=== PATIENT | female | born 1990 | race Caucasian/White ===

== ENCOUNTER 2016-11-21 00:41 | Inpatient (IN) | payer BC, OTHER ==
[2016-11-21] VITALS (12 sets, daily range): BP systolic 100–131; BP diastolic 60–72; PULSE 56–95; RESP 16–18; TEMP 96.1–98.8; O2SAT 95–99
[~2016-11-21] VITALS: Ht 167.6 cm; Wt 87.0 kg
[~2016-11-21 00:41] MED LIST: ACET325S8 PO; ALPR.25 PO; FLUO20SO3 PO; GABA300C3 PO; OXCA150 PO; SERO100T PO; SERO300T PO
[2016-11-21] MEDS ORDERED: SERO300T PO (00:53)
[2016-11-21] MEDS ORDERED: OFFICE MEDICATION (00:53)
[2016-11-21] MEDS ORDERED: SODIUM CHLOR 0.9% 1000 ML INJ 1,000 ML IV SCH (01:40)
[2016-11-21] MEDS ORDERED: ONDANSETRON HCL 4 MG/2 ML VIAL IVP ONE (01:45)
[2016-11-21] MEDS ORDERED: LIDOCAINE VISCOUS 2% SOLN 15 ML UDC PO ONE (01:45)
[2016-11-21] MEDS ORDERED: SODIUM CHLORIDE 0.9% FLUSH 5 ML FLUSH IVF PRN (01:45)
[2016-11-21] MEDS ORDERED: ALUMINUM/MAGNESIUM/SIMETH 30 ML CUP PO ONE (01:45)
[2016-11-21] MEDS ORDERED: PROM25TA5 PO (02:18)
--- NOTE | 2016-11-21 02:19 | PD ---
HPI Chief Complaint: GI Complaint Time Seen by Provider: 01:31 Travel History International Travel<30 days: No Contact w/Intl Traveler<30days: No Traveled to known affect area: No History of Present Illness HPI 26-year-old female arrives complaining of nausea vomiting for the past 2 weeks. For the last 3 days she has been vomiting more or less constantly. She reports normal flatus and normal bowel movements. She has some upper abdominal pain. Decreased oral intake. She has been tolerating water occasionally however vomits after drinking. She has a history of bipolar disorder and has been on Seroquel. 3 para 0 with 3 abortions. She states she smokes marijuana all day every day in hopes that it may help her vomiting. She smokes 2 packs of cigarettes daily. She denies drinking alcohol. Last menstruation was one year prior. She has no thoughts of hurting herself or others. No vaginal bleeding or discharge. No urinary complaint. She reports a history of IV drug abuse most recently 5 months prior. [facility] Past Medical History Anxiety: Yes Depression: Yes Diminished Hearing: No Kidney Stones: Yes Influenza Vaccination: No ?: Unknown LMP: 10/29/2016 : 2 Past Surgical History Genitourinary Surgery: Yes (kidney stones, ) Tonsillectomy: Yes Other Surgery: Yes (2 abortions) Social History Alcohol Use: No Tobacco Use: Yes (1 ppd) Substance Use: No Allergies-Medications (Allergen,Severity, Reaction): Coded Allergies: No Known Allergies (Unverified , 11/21/16) Reported Meds & Prescriptions Reported Meds & Active Scripts Active Reported Office Medication (Miscellaneous Medication) Misc Seroquel (Quetiapine Fumarate) 300 Mg Tab 300 Mg PO BID Review of Systems Except as stated in HPI: all other systems reviewed are Neg General / Constitutional: No: Fever Physical Exam Narrative GENERAL: 26-year-old female well-nourished well-developed distress SKIN: Warm and dry. HEAD: Atraumatic. Normocephalic. EYES: Pupils equal and round. No scleral icterus. No injection or drainage. ENT: No nasal bleeding or discharge. Mucous membranes pink and moist. NECK: Trachea midline. No JVD. CARDIOVASCULAR: Regular rate and rhythm. No murmur appreciated. RESPIRATORY: No accessory muscle use. Clear to auscultation. Breath sounds equal bilaterally. GASTROINTESTINAL: Abdomen soft, non-tender, nondistended. Hepatic and splenic margins not palpable. MUSCULOSKELETAL: No obvious deformities. No clubbing. No cyanosis. No edema. NEUROLOGICAL: Awake and alert. No obvious cranial nerve deficits. Motor grossly within normal limits. Normal speech. PSYCHIATRIC: Appropriate mood and affect; insight and judgment normal. Data Data Last Documented VS Vital Signs Date Time Temp Pulse Resp B/P Pulse Ox O2 Delivery O2 Flow Rate FiO2 11/21/16 05:35 82 16 104/64 96 Room Air 11/21/16 00:42 98.0 Orders Complete Blood Count With Diff (11/21/16 01:40) Comprehensive Metabolic Panel (11/21/16 01:40) Urinalysis - C+S If Indicated (11/21/16 01:40) Iv Access Insert/Monitor (11/21/16 01:40) Ecg Monitoring (11/21/16 01:40) Oximetry (11/21/16 01:40) Ondansetron Inj (Zofran Inj) (11/21/16 01:45) Sodium Chlor 0.9% 1000 Ml Inj (Ns 1000 M (11/21/16 01:40) Sodium Chloride 0.9% Flush (Ns Flush) (11/21/16 01:45) Al-Mag Hy-Si 40-40-4 Mg/Ml Liq (Mag-Al P (11/21/16 01:45) Lidocaine 2% Viscous (Xylocaine 2% Visco (11/21/16 01:45) Ed Urine Pregnancytest Poc (11/21/16 01:40) Urine Culture (11/21/16 01:45) Lipase (11/21/16 03:20) Ct Abd/Pel W Iv Contrast(Rout) (11/21/16 03:20) Alcohol (Ethanol) (11/21/16 03:21) Ceftriaxone Inj (Rocephin Inj) (11/21/16 03:30) Piperacil-Tazo 4.5 Gm Premix (Zosyn 4.5 (11/21/16 03:30) Iohexol 350 Inj (Omnipaque 350 Inj) (11/21/16 03:33) Admit Order (Ed Use Only) (11/21/16 05:45) Consult General Surgery (11/21/16 ) Place In Observation (11/21/16 ) Vital Signs (Adult) Q4H (11/21/16 05:42) Activity Oob Ad Sonja (11/21/16 05:42) Timber Repairer / Telemetry .CONTINUOUS (11/21/16 05:42) Diet Npo (11/21/16 Breakfast) Sodium Chloride 0.9% Flush (Ns Flush) (11/21/16 05:45) Sodium Chloride 0.9% Flush (Ns Flush) (11/21/16 09:00) Ondansetron Inj (Zofran Inj) (11/21/16 05:45) Basic Metabolic Panel (Bmp) (11/22/16 06:00) Complete Blood Count With Diff (11/22/16 06:00) Enoxaparin Inj (Lovenox Inj) (11/21/16 09:00) Naloxone Inj (Narcan Inj) (11/21/16 05:45) Labs Laboratory Tests Test 11/21/16 01:45 White Blood Count 6.9 TH/MM3 Red Blood Count 3.88 MIL/MM3 Hemoglobin 11.8 GM/DL Hematocrit 33.8 % Mean Corpuscular Volume 87.1 FL Mean Corpuscular Hemoglobin 30.3 PG Mean Corpuscular Hemoglobin 34.8 % Concent Red Cell Distribution Width 14.6 % Platelet Count 289 TH/MM3 Mean Platelet Volume 9.0 FL Neutrophils (%) (Auto) 40.0 % Lymphocytes (%) (Auto) 48.1 % Monocytes (%) (Auto) 10.5 % Eosinophils (%) (Auto) 0.3 % Basophils (%) (Auto) 1.1 % Neutrophils # (Auto) 2.8 TH/MM3 Lymphocytes # (Auto) 3.3 TH/MM3 Monocytes # (Auto) 0.7 TH/MM3 Eosinophils # (Auto) 0.0 TH/MM3 Basophils # (Auto) 0.1 TH/MM3 CBC Comment DIFF FINAL Differential Comment Urine Color DARK-BROWN Urine Turbidity CLOUDY Urine pH 6.0 Urine Specific [place] 1.023 Urine Protein 30 mg/dL Urine Glucose (UA) NEG mg/dL Urine Ketones NEG mg/dL Urine Occult Blood MOD Urine Nitrite NEG Urine Bilirubin MOD Urine Urobilinogen 8.0 MG/DL Urine Leukocyte Esterase NEG Urine RBC 7 /hpf Urine WBC 15 /hpf Urine WBC Clumps OCC Urine Squamous Epithelial 29 /hpf Cells Urine Bacteria RARE /hpf Urine Hyaline Casts 10 /lpf Urine Mucus MANY /lpf Microscopic Urinalysis Comment CULTURE INDICATED Sodium Level 136 MEQ/L Potassium Level 3.4 MEQ/L Chloride Level 99 MEQ/L Carbon Dioxide Level 29.3 MEQ/L Anion Gap 8 MEQ/L Blood Urea Nitrogen 6 MG/DL Creatinine 0.98 MG/DL Estimat Glomerular Filtration 68 ML/MIN Rate Random Glucose 80 MG/DL Calcium Level 8.8 MG/DL Total Bilirubin 2.1 MG/DL Aspartate Amino Transf 618 U/L (AST/SGOT) Alanine Aminotransferase 638 U/L (ALT/SGPT) Alkaline Phosphatase 174 U/L Total Protein 8.3 GM/DL Albumin 3.5 GM/DL Lipase 159 U/L Ethyl Alcohol Level LESS THAN 3 MG/DL MDM Medical Decision Making Medical Screen Exam Complete: Yes Emergency Medical Condition: Yes Medical Record Reviewed: Yes Differential Diagnosis Constipation, Gastritis, Acute Cholecystitis, Biliary Colic, Pancreatitis, [place] , Hepatitis, Bowel Obstruction, Cystitis, Mesenteric Ischemia, AAA, Appendicitis , Renal Stone/Hydronephrosis, GERD, perforated viscous Narrative Course CBC & BMP Diagram 11/21/16 01:45 Bilirubin 2.1 AST 618 ALT [address] shows pericholecystic fluid without obvious cholecystitis otherwise. Case discussed with general surgery and consult is pending. Patient's on maintenance fluids and Zosyn. Her pain is controlled. There is minimal tenderness in the right upper quadrant. She also has a UTI. Admitted to the [facility] service, d/w Dr Gutierrez. Skin warm and dry with a blood pressure of about 110/ 70 and a heart rate of about 90 at time of admission, approximately 6:00 AM. Diagnosis Primary Impression: Nausea & vomiting Qualified Code: R11.2 - Non-intractable vomiting with nausea, unspecified vomiting type Additional Impressions: Marijuana smoker, continuous Elevated LFTs Abdominal pain Qualified Code: R10.11 - Right upper quadrant abdominal pain Cystitis Alexey Silva MD Nov 21, 2016 02:19 Alexey Silva MD Nov 21, 2016 02:19
[2016-11-21 02:32] LABS: AUTOMATED NEUTROPHIL # 2.8 TH/MM3 (1.8-7.7); BASOPHIL # 0.1 TH/MM3 (0-0.2); BASOPHIL % 1.1 % (0.0-2.0); EOSINOPHIL % 0.3 % (0.0-4.0); HEMATOCRIT 33.8 % (35.0-46.0); HEMO FLAGS DIFF FINAL; LYMPH % 48.1 % (9.0-44.0); LYMPHOCYTE # 3.3 TH/MM3 (1.0-4.8); MEAN CELL VOLUME 87.1 FL (80.0-100.0); MEAN CORPUSCULAR HEMOGLOBIN 30.3 PG (27.0-34.0); MEAN CORPUSCULAR HGB CONC 34.8 % (32.0-36.0); MONO % 10.5 % (0.0-8.0); PLATELET COUNT 289 TH/MM3 (150-450); RED BLOOD COUNT 3.88 MIL/MM3 (4.00-5.30); RED CELL DISTRIBUTION WIDTH 14.6 % (11.6-17.2); WHITE BLOOD COUNT 6.9 TH/MM3 (4.0-11.0)
[2016-11-21 02:41] LABS: BACTERIA, URINE RARE /hpf; BLOOD, URINE MOD (NEG); COMMENT (UR) CULTURE INDICATED; CULTURE IF INDICATED CULTURE INDICATED; GLUCOSE,URINE NEG (NEG); HYALINE CAST, URINE 10 /lpf (RARE); KETONE, URINE NEG (NEG); MUCUS URINE MANY /lpf (OCC); NITRITE,URINE NEG (NEG); SQUAMOUS EPITHELIAL CELL URINE 29 /hpf (0-5)
[2016-11-21 02:42] LABS: URINE COLOR DARK-BROWN (YELLW/STRAW)
[2016-11-21 03:18] LABS: ALT (GPT) 638 U/L (10-53); ANION GAP 8 MEQ/L (5-15); AST (GOT) 618 U/L (15-37); BICARBONATE 29.3 MEQ/L (21.0-32.0); BLOOD UREA NITROGEN 6 MG/DL (7-18); CHLORIDE 99 MEQ/L (98-107); GLOMERULAR FILTRATION RATE 68 ML/MIN (>89); POTASSIUM 3.4 MEQ/L (3.5-5.1); SODIUM (NA) 136 MEQ/L (136-145)
[2016-11-21] MEDS ORDERED: BACT800T5 PO (03:18)
[2016-11-21 03:20] LABS: ALKALINE PHOSPHATASE 174 U/L (45-117); TOTAL BILIRUBIN ADULT 2.1 MG/DL (0.2-1.0)
[2016-11-21] MEDS ORDERED: PIPERACIL-TAZO 4.5 GM PREMIX 100 ML IV ONE (03:30)
[2016-11-21] MEDS ORDERED: cefTRIAXone INJ 1,000 MG in SODIUM CHLORIDE 0.9% INJ 100 ML IV ONE (03:30)
[2016-11-21] MEDS ORDERED: IOHEXOL 350 MG/ML 10 ML VIAL (for RAD DIAG) IV ONE (03:33)
--- NOTE | 2016-11-21 04:15 | RADRPT ---
EXAM DATE/TIME: 11/21/2016 03:33 [facility] COMPARISON: No previous studies available for comparison. INDICATIONS : Upper abdominal pain, nausea and vomiting X 3 days. IV CONTRAST: 97 cc Omnipaque 350 (iohexol) IV ORAL CONTRAST: No oral contrast ingested. RADIATION DOSE: 11.21 CTDIvol (mGy) MEDICAL HISTORY : Renal calculi SURGICAL HISTORY : Tonsillectomy. ENCOUNTER: Initial ACUITY: 3 days PAIN SCALE: 5/10 LOCATION: upper abdomen TECHNIQUE: Volumetric scanning of the abdomen and pelvis was performed. Using automated exposure control and ad justment of the mA and/or kV according to patient size, radiation dose was kept as low as reasonably achievable to obtain optimal diagnostic quality images. FINDINGS: Examination of the lung bases demonstrates no abnormality. No pleural fluid is identified. No pulmona ry nodules are present. The liver and spleen are normal in size and no focal defects are identified. There is a trace amount of pericholecystic fluid. If there is concern for cholecystitis nuclear medic ine evaluation is recommended. The pancreas demonstrates no evidence of mass and there is no dilatati on of the pancreatic duct. The adrenal glands and kidneys appear normal bilaterally. No hydronephrosi s or mass lesions are identified. Examination of the pelvis demonstrates no evidence of free fluid or pelvic mass. No abnormally enlarg ed inguinal or retroperitoneal lymph nodes are present. The bladder is unremarkable. CONCLUSION: 1. Trace amount of pericholecystic fluid. If there is concern for cholecystitis radionuclide imaging is recommended Matt Stack MD on November 21, 2016 at 4:10 Board Certified Radiologist. This report was verified electronically.
[2016-11-21] MEDS ORDERED: NALOXONE HCL 0.4 MG/ML AMP IV PRN ×2 (05:45→17:45)
[2016-11-21] MEDS ORDERED: ENOXAPARIN SODIUM 40 MG/0.4 ML SYRINGE SQ SCH (09:00)
[2016-11-21] MEDS: PIPERACIL-TAZO 4.5 GM PREMIX 100 ML IV SCH ×2 (09:41→18:13)
[2016-11-21] MEDS: SODIUM CHLORIDE 0.9% FLUSH 5 ML FLUSH FLUSH SCH ×2 (10:23→21:00)
[2016-11-21] MEDS: ONDANSETRON HCL 4 MG/2 ML VIAL IVP PRN (11:23)
--- NOTE | 2016-11-21 12:05 | MB ---
cc: MABEL ROBLES MD DATE OF CONSULTATION: 11/21/2016 REASON FOR CONSULTATION: Right upper quadrant pain, nausea, vomiting. HISTORY OF PRESENT DISEASE: This pleasant 26 year-old female presents to the hospital with about a week or two of nausea and vomiting. The patient apparently has been taking p.o., however, vomits after drinking. The patient has normal bowel movements. The patient is admitted to the hospital. The question arises about the nature of her symptoms. The initial CT scan reveals some fluid around the gallbladder but that is about it. PAST MEDICAL HISTORY: Bipolar disorder. The patient is on Seroquel. PAST SURGICAL HISTORY: Three abortions. SOCIAL HISTORY: The patient does not drink. Smoked about a pack a day of cigarettes and smokes pot all day, every day. MEDICATIONS: Seroquel. REVIEW OF SYSTEMS: Normal at this point. The patient has no other issues. PHYSICAL EXAMINATION: Reveals a 26 year-old female in no acute distress. HEENT: Normocephalic. No trauma to the head. Pupils equally reactive. Extraocular muscles intact. Neck: Supple bilateral carotid pulses. No bruits. Sclerae are nonicteric. Chest: Bilateral breath sounds. Heart: Regular rhythm. Abdomen: Soft. Hypoactive bowel sounds to palpation, tender in the upper quadrant but no rebound, no guarding is noted. No masses are noted. Extremities: Within normal limits. Back: Normal. IMPRESSION Patient with right upper quadrant pain, nausea and vomiting all indicative and reminiscent of cholecystitis. In addition patient's elevated liver function tests including AST and ALT as well as bilirubin which, of course, could be related to cholecystitis but it is unlikely to be this far up. The patient is on Seroquel and maybe on some other medications. The question arises what else could have elevated her liver function tests. Therefore, the patient will be admitted, worked up, undergo HIDA scan and we will see which way this goes. If the patient has acute cholecystitis she will need laparoscopic cholecystectomy, nonetheless, the fact that the AST and ALT are elevated as they may indicate some intrinsic liver problem which will have to be elucidated. If patient undergoes laparoscopic cholecystectomy will go ahead and perform a liver biopsy of the same time. Thank you very much for the referral. Mabel BROWN /11:08 AM /11:56 AM MTDFabián
--- NOTE | 2016-11-21 12:19 | HHI.HP ---
[facility] Service [place] [facility] Primary Care Physician No Primary Care Physician Admission Diagnosis Elevated LFTs, Cystitis, Poss Cholecystitis Diagnoses: Chief Complaint: nausea/vomiting, abdominal pain Travel History International Travel<30 Days: No Contact w/Intl Traveler <30 Da: No Traveled to Known Affected Are: No History of Present Illness 26-year-old female without significant PMH who came to the ED complaining of nausea, vomiting for the past 2 weeks. For the last 3 days she has been vomiting more constantly and getting worse. She reports normal flatus and normal bowel movements. She also has some upper abdominal pain. Decreased oral intake over the past 3 days. She has been tolerating water occasionally however vomits after drinking or eating anything. She has a history of bipolar disorder and has been on Seroquel. 3 para 0 with 3 abortions. She states she smokes marijuana all day every day in hopes that it may help her vomiting. She smokes 2 packs of cigarettes daily. Former heroin user quit 5 month ago. She denies drinking alcohol. Last menstruation was one year prior. She has no thoughts of hurting herself or others. No vaginal bleeding or discharge. No urinary complaint. She reports a history of IV drug abuse most recently 5 months prior. Review of Systems 12 system ROS reviewed negative except as stated in HPI Past Family Social History Past Medical History H/o kidney stones with lithotripsy in the past Past Surgical History Lithotripsy Tonsillectomy Left arm surgery Allergies: Coded Allergies: No Known Allergies (Unverified , 11/21/16) Family History Mother MAC Father HTN, HLD, throat cancer was a smoker Half sister with breast CA at 35 ya Social History Tobacco use: 2 PPD x 8years, MJ almost daily. 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 Occasional EtOH use. Physical Exam Vital Signs Vital Signs Date Time Temp Pulse Resp B/P Pulse Ox O2 Delivery O2 Flow Rate FiO2 11/21/16 08:00 98.8 66 17 105/72 98 Room Air 11/21/16 06:30 67 16 113/69 95 Room Air 11/21/16 05:35 82 16 104/64 96 Room Air 11/21/16 04:13 72 18 131/62 95 11/21/16 03:00 70 18 128/68 96 Room Air 11/21/16 01:46 70 16 110/66 97 11/21/16 00:42 98.0 78 18 116/68 97 Physical Exam GENERAL: This is a well-nourished, well-developed patient, in no apparent distress. SKIN: No rashes, ecchymoses or lesions. Cool and dry. HEAD: Atraumatic. Normocephalic. No temporal or scalp tenderness. EYES: Pupils equal round and reactive. Extraocular motions intact. No scleral icterus. No injection or drainage. ENT: Nose without bleeding, purulent drainage or septal hematoma. Throat without erythema, tonsillar hypertrophy or exudate. Uvula midline. Airway patent. NECK: Trachea midline. No JVD or lymphadenopathy. Supple, nontender, no meningeal signs. CARDIOVASCULAR: Regular rate and rhythm without murmurs, gallops, or rubs. RESPIRATORY: Clear to auscultation. Breath sounds equal bilaterally. No wheezes , rales, or rhonchi. GASTROINTESTINAL: Abdomen soft, non-tender, nondistended. No hepato-splenomegaly , or palpable masses. No guarding. MUSCULOSKELETAL: Extremities without clubbing, cyanosis, or edema. No joint tenderness, effusion, or edema noted. No calf tenderness. Negative Homans sign bilaterally. NEUROLOGICAL: Awake and alert. Cranial nerves II through XII intact. Motor and sensory grossly within normal limits. Five out of 5 muscle strength in all muscle groups. Normal speech. Laboratory Laboratory Tests Test 11/21/16 01:45 White Blood Count 6.9 Red Blood Count 3.88 Hemoglobin 11.8 Hematocrit 33.8 Mean Corpuscular Volume 87.1 Mean Corpuscular Hemoglobin 30.3 Mean Corpuscular Hemoglobin 34.8 Concent Red Cell Distribution Width 14.6 Platelet Count 289 Mean Platelet Volume 9.0 Neutrophils (%) (Auto) 40.0 Lymphocytes (%) (Auto) 48.1 Monocytes (%) (Auto) 10.5 Eosinophils (%) (Auto) 0.3 Basophils (%) (Auto) 1.1 Neutrophils # (Auto) 2.8 Lymphocytes # (Auto) 3.3 Monocytes # (Auto) 0.7 Eosinophils # (Auto) 0.0 Basophils # (Auto) 0.1 CBC Comment DIFF FINAL Differential Comment Urine Color DARK-BROWN Urine Turbidity CLOUDY Urine pH 6.0 Urine Specific [place] 1.023 Urine Protein 30 Urine Glucose (UA) NEG Urine Ketones NEG Urine Occult Blood MOD Urine Nitrite NEG Urine Bilirubin MOD Urine Urobilinogen 8.0 Urine Leukocyte Esterase NEG Urine RBC 7 Urine WBC 15 Urine WBC Clumps OCC Urine Squamous Epithelial 29 Cells Urine Bacteria RARE Urine Hyaline Casts 10 Urine Mucus MANY Microscopic Urinalysis Comment CULTURE INDICATED Sodium Level 136 Potassium Level 3.4 Chloride Level 99 Carbon Dioxide Level 29.3 Anion Gap 8 Blood Urea Nitrogen 6 Creatinine 0.98 Estimat Glomerular Filtration 68 Rate Random Glucose 80 Calcium Level 8.8 Total Bilirubin 2.1 Aspartate Amino Transf 618 (AST/SGOT) Alanine Aminotransferase 638 (ALT/SGPT) Alkaline Phosphatase 174 Total Protein 8.3 Albumin 3.5 Lipase 159 Ethyl Alcohol Level LESS THAN 3 Date/Time Procedure Status Source Growth 11/21/16 01:45 Urine Culture Received Urine Clean Catch Pending Result Diagram: 11/21/16 0145 11/21/16 0145 Imaging Last Impressions Abdomen/Pelvis CT 11/21/16 0320 Signed Impressions: Service Date/Time: Monday, November 21, 2016 03:33 - CONCLUSION: 1. Trace amount of pericholecystic fluid. If there is concern for cholecystitis radionuclide imaging is recommended Matt Stack MD Assessment and Plan Assessment and Plan Abdominal pain poss cholecystitis Transaminitis. Bilirubin 2.1, AST 618, ALT 634 on admission. Check hepatitis panel. Consult GI as well Monitor UTI CT shows pericholecystic fluid without obvious cholecystitis otherwise. General surgery consult. Consult GI Start maintenance fluids and Zosyn IV. Pain control. PPI NPO DVT ppx lovenox Code Status full code Discussed Condition With patient, nurse Physician Certification 2 Midnight Certification Type: Admission for Inpatient Services Order for Inpatient Services The services are ordered in accordance with Medicare regulations or non- Medicare payer requirements, as applicable. In the case of services not specified as inpatient-only, they are appropriately provided as inpatient services in accordance with the 2-midnight benchmark. Estimated LOS (days): 3 days is the estimated time the patient will need to remain in the hospital, assuming treatment plan goals are met and no additional complications. Post-Hospital Plan: Home Carmen Rivera MD Nov 21, 2016 12:19
[2016-11-21] MEDS ORDERED: NYSTAT/DIPHENHY/LIDO MOUTHWASH (Adult) 120ML SWISH-SWAL PRN (14:15)
--- NOTE | 2016-11-21 15:34 | RADRPT ---
EXAM DATE/TIME: 11/21/2016 13:00 [facility] COMPARISON: No previous studies available for comparison. INDICATIONS : Abdominal pain with nausea and vomiting for two weeks. DOSE: 4.1 mCi Tc99m Mebrofenin IV MEDICAL HISTORY : None SURGICAL HISTORY : Tonsillectomy. ENCOUNTER: Initial ACUITY: 2 weeks PAIN SCALE: 5/10 LOCATION: Right upper quadrant TECHNIQUE: Following the intravenous administration of radiotracer, dynamic sequential images were performed wit h continuous acquisition. FINDINGS: There is a slight decrease in the rate of excretion of the radiopharmaceutical from the liver suggest ing some diminished hepatic function. There is no gallbladder activity identified during the study. H owever, there is no biliary obstruction with activity noted in the common bile duct within the first 20 minutes as well as small bowel activity. CONCLUSION: 1. Absent gallbladder activity characteristic of cystic duct obstruction. This can be correlative wit h cholecystitis. 2. Mildly diminished hepatic function. 3. No biliary ductal obstruction. Michelet Chun MD on November 21, 2016 at 15:27 Board Certified Radiologist. This report was verified electronically.
--- NOTE | 2016-11-21 16:54 | PD.CONS ---
HPI History of Present Illness This is a 26 year old female who came to the ER for evaluation of nausea, vomiting, RUQ pain. She reports that her symptoms began about 2 weeks ago. She has been having frequent nausea, vomiting with nonbloody emesis and intermittent RUQ pain- that she describes as a sharp shooting pain in her RUQ that radiates to her epigastric area and sometimes her back. She does not know if this is related to food intake and reports that she has not been eating much because of the nausea. She has chills and diaphoretic episodes, but denies any fevers. She has had some loose stools intermittently over the past few weeks, but denies any blood in her stool. She reports that she has not had any liver problems recently, but when she was 14, she was hospitalized in a mental hospital and taken off some of her psychiatric medications because her "liver was failing." She reports that she has not had any issues since that time. She occasionally drinks ETOH. She denies any family hx of liver problems. ( Pita Alarcon) [facility] Past Medical History H/o kidney stones with lithotripsy in the past Past Surgical History Lithotripsy Tonsillectomy Left arm surgery (Pita Alarcon) Coded Allergies: No Known Allergies (Unverified , 11/21/16) Medications Allergies Coded Allergies Type Severity Reaction Last Updated Verified No Known Allergies 11/21/16 No Active Scripts Medications Dose Route/Sig Days Date Category Office Medication (Miscellaneous Medication) Misc 11/21/16 Reported Seroquel (Quetiapine Fumarate) 300 Mg Tab 300 Mg PO BID 11/21/16 Reported Family History Father HTN, HLD, throat cancer was a smoker Half sister with breast CA at 35 ya Social History Tobacco use: 2 PPD x 8years Frequent MJ use, almost daily. 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 Occasional EtOH use. (Pita Alarcon) Review of Systems Constitutional: COMPLAINS OF: Diaphoretic episodes, Fatigue, Chills, Change in appetite, DENIES: Fever, Weight loss Respiratory: DENIES: Cough Cardiovascular: DENIES: Chest pain Gastrointestinal: COMPLAINS OF: Abdominal pain, Diarrhea (loose stools), Nausea , Vomiting, DENIES: Black stools, Bloody stools, Constipation, Heartburn Integumentary: DENIES: Abnormal pigmentation Hematologic/lymphatic: DENIES: Bruising Neurologic: DENIES: Headache Psychiatric: DENIES: Confusion (AgnesPita Dominguez LISANDRA) GI Exam Vitals I&O Vital Signs Date Time Temp Pulse Resp B/P Pulse Ox O2 Delivery O2 Flow Rate FiO2 11/21/16 12:15 97.7 67 16 116/69 96 11/21/16 11:50 68 16 102/60 98 11/21/16 08:00 98.8 66 17 105/72 98 Room Air 11/21/16 06:30 67 16 113/69 95 Room Air 11/21/16 05:35 82 16 104/64 96 Room Air 11/21/16 04:13 72 18 131/62 95 11/21/16 03:00 70 18 128/68 96 Room Air 11/21/16 01:46 70 16 110/66 97 11/21/16 00:42 98.0 78 18 116/68 97 I/O 11/20/16 11/20/16 11/20/16 11/21/16 11/21/16 11/21/16 07:00 15:00 23:00 07:00 15:00 23:00 Intake Total 0 ml Output Total 200 ml Balance -200 ml Intake Oral 0 ml Output Urine Total 200 ml Imaging Last Impressions Abdomen/Pelvis CT 11/21/16 0320 Signed Impressions: Service Date/Time: Monday, November 21, 2016 03:33 - CONCLUSION: 1. Trace amount of pericholecystic fluid. If there is concern for cholecystitis radionuclide imaging is recommended Matt Stack MD Hepatobiliary Scan Nuclear Medicine 11/21/16 0000 Signed Impressions: Service Date/Time: Monday, November 21, 2016 13:00 - CONCLUSION: 1. Absent gallbladder activity characteristic of cystic duct obstruction. This can be correlative with cholecystitis. 2. Mildly diminished hepatic function. 3. No biliary ductal obstruction. Michelet Chun MD Laboratory Test 11/21/16 01:45 White Blood Count 6.9 TH/MM3 Red Blood Count 3.88 MIL/MM3 Hemoglobin 11.8 GM/DL Hematocrit 33.8 % Mean Corpuscular Volume 87.1 FL Mean Corpuscular Hemoglobin 30.3 PG Mean Corpuscular Hemoglobin 34.8 % Concent Red Cell Distribution Width 14.6 % Platelet Count 289 TH/MM3 Mean Platelet Volume 9.0 FL Neutrophils (%) (Auto) 40.0 % Lymphocytes (%) (Auto) 48.1 % Monocytes (%) (Auto) 10.5 % Eosinophils (%) (Auto) 0.3 % Basophils (%) (Auto) 1.1 % Neutrophils # (Auto) 2.8 TH/MM3 Lymphocytes # (Auto) 3.3 TH/MM3 Monocytes # (Auto) 0.7 TH/MM3 Eosinophils # (Auto) 0.0 TH/MM3 Basophils # (Auto) 0.1 TH/MM3 CBC Comment DIFF FINAL Differential Comment Urine Color DARK-BROWN Urine Turbidity CLOUDY Urine pH 6.0 Urine Specific [place] 1.023 Urine Protein 30 mg/dL Urine Glucose (UA) NEG mg/dL Urine Ketones NEG mg/dL Urine Occult Blood MOD Urine Nitrite NEG Urine Bilirubin MOD Urine Urobilinogen 8.0 MG/DL Urine Leukocyte Esterase NEG Urine RBC 7 /hpf Urine WBC 15 /hpf Urine WBC Clumps OCC Urine Squamous Epithelial 29 /hpf Cells Urine Bacteria RARE /hpf Urine Hyaline Casts 10 /lpf Urine Mucus MANY /lpf Microscopic Urinalysis Comment CULTURE INDICATED Sodium Level 136 MEQ/L Potassium Level 3.4 MEQ/L Chloride Level 99 MEQ/L Carbon Dioxide Level 29.3 MEQ/L Anion Gap 8 MEQ/L Blood Urea Nitrogen 6 MG/DL Creatinine 0.98 MG/DL Estimat Glomerular Filtration 68 ML/MIN Rate Random Glucose 80 MG/DL Calcium Level 8.8 MG/DL Total Bilirubin 2.1 MG/DL Aspartate Amino Transf 618 U/L (AST/SGOT) Alanine Aminotransferase 638 U/L (ALT/SGPT) Alkaline Phosphatase 174 U/L Total Protein 8.3 GM/DL Albumin 3.5 GM/DL Lipase 159 U/L Ethyl Alcohol Level LESS THAN 3 MG/DL Date/Time Procedure Status Source Growth 11/21/16 01:45 Urine Culture Received Urine Clean Catch Pending Physical Examination HEENT: Normocephalic; atraumatic; no jaundice. CHEST: CTA CARDIAC: RRR ABDOMEN: Soft, nondistended, RUQ tenderness, no hepatosplenomegaly; bowel sounds are present in all four quadrants. EXTREMITIES: No clubbing, cyanosis, or edema. SKIN: Normal; no rash; no jaundice. 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 (Pita Alarcon) Assessment and Plan Plan ASSESSMENT: - N/V, RUQ pain. Abdomen/Pelvis CT (11/21/16)----> 1. Trace amount of pericholecystic fluid. If there is concern for cholecystitis radionuclide imaging is recommended. HIDA (11/21/16)-----> 1. Absent gallbladder activity characteristic of cystic duct obstruction. This can be correlative with cholecystitis. 2. Mildly diminished hepatic function. 3. No biliary ductal obstruction. C/O n/v/ruq pain x 2 weeks, has not been able to eat much because of the nausea and pain. WBC 6.9. LFT. T. Bili 2.1, AST 618 , ALT 638, ALk Phosph 174. Lipase 159. GS following. - Elevated LFTs. No biliary dilatation on CT or HIDA. Does have pericholecystic fluid on CT, absent GB activity, characteristic of cystic duct obstruction. GS following. Reports she had elevated LFTs when she was hospitalized at a psychiatric hospital at age 14 and had to be taken off many of her medications because they were causing her "liver to fail." She has not since had any issues. 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 Denies any hx of known hepatitis. - Acute cholecystitis. NPO. GS following. PLAN: - NPO - PPI - Zosyn - Await hepatitis panel - MAU, ASMA, AMA - Celiac panel - Ceruloplasmin, ALpha Antitrypsin - Ferritin, Iron Saturation - Acetaminophen level - Salicylate level - CBC, CMP in am - GS following - Supportive care - Further recommendations to follow based on results of above - Pt seen and examined by Dr. Yao and myself and this note is written on her behalf (Pita Alarcon) Physician Comments seen, examined agree with above (Brandi Yao MD) Pita Alarcon Nov 21, 2016 16:54 Brandi Yao MD Nov 21, 2016 18:27
[2016-11-21] MEDS ORDERED: ACETAMINOPHEN 325 MG TAB PO PRN (17:45)
[2016-11-21] MEDS ORDERED: IBUPROFEN 600 MG TAB PO PRN (17:45)
[2016-11-21] MEDS ORDERED: SODIUM CHLORIDE 0.9% FLUSH 5 ML FLUSH IV PRN (17:45)
[2016-11-21] MEDS: KETOROLAC TROMETHAMINE 30 MG/ML (IVP) VIAL IVP PRN (18:12)
[2016-11-21] MEDS: SODIUM CHLOR 0.9% 1000 ML INJ 1,000 ML IV SCH (18:18)
[2016-11-21 18:24] LABS: FERRITIN 512 NG/ML (8-252); GAMMA GT 62 U/L (5-55); TRANSFERRIN IRON PROFILE 443 MG/DL (200-360)
[2016-11-21 18:30] LABS: ACETAMINOPHEN LESS THAN 2.0 MCG/ML (10.0-30.0)
--- NOTE | 2016-11-21 19:05 | RADRPT ---
EXAM DATE/TIME: 11/21/2016 17:23 [place] COMPARISON: No previous studies available for comparison. INDICATIONS : Right upper quadrant pain. MEDICAL HISTORY : Renal calculi. Nausea. Vomiting. SURGICAL HISTORY : Tonsillectomy. Left arm surgery. Two surgical abortions. ENCOUNTER: Initial ACUITY: 3 days PAIN SCORE: 8/10 LOCATION: Right upper quadrant MEASUREMENTS: LIVER: 18.1 cm length COMMON DUCT: 5 mm RIGHT KIDNEY: 10.5 x 4.7 x 5.2 cm FINDINGS: LIVER: Normal echotexture without focal lesion or ductal dilatation. COMMON DUCT: No intraluminal mass or stone visualized. GALLBLADDER: Extensive sludge within gallbladder. Trace pericholecystic fluid. PANCREAS: The visualized portions are within normal limits. RIGHT KIDNEY: No evidence of hydronephrosis, stone, or mass. CONCLUSION: 1. Extensive gallbladder sludge with trace pericholecystic fluid. No biliary ductal dilatation. No fr ee fluid around the liver. Michelet Chun MD on November 21, 2016 at 19:02 Board Certified Radiologist. This report was verified electronically.
[2016-11-21] MEDS ORDERED: SODIUM CHLORIDE 0.9% FLUSH 5 ML FLUSH IV SCH (21:00)
[2016-11-22] VITALS (7 sets, daily range): BP systolic 98–118; BP diastolic 56–78; PULSE 54–82; RESP 16–17; TEMP 96–98; O2SAT 97–100
[2016-11-22] MEDS ORDERED: KETOROLAC TROMETHAMINE 30 MG/ML (IVP) VIAL IV PUSH ONE
[2016-11-22] MEDS: PIPERACIL-TAZO 4.5 GM PREMIX 100 ML IV SCH ×5 (00:05→22:54)
[2016-11-22] MEDS: KETOROLAC TROMETHAMINE 30 MG/ML (IVP) VIAL IVP PRN ×3 (05:42→18:44)
[2016-11-22 08:23] LABS: AUTOMATED NEUTROPHIL # 3.8 TH/MM3 (1.8-7.7); BASOPHIL # 0.1 TH/MM3 (0-0.2); BASOPHIL % 1.4 % (0.0-2.0); EOSINOPHIL # 0.1 TH/MM3 (0-0.4); EOSINOPHIL % 0.8 % (0.0-4.0); HEMATOCRIT 31.9 % (35.0-46.0); HEMO FLAGS DIFF FINAL; LYMPH % 39.2 % (9.0-44.0); MEAN CELL VOLUME 87.7 FL (80.0-100.0); MEAN CORPUSCULAR HGB CONC 34.2 % (32.0-36.0); MONO % 8.7 % (0.0-8.0); NEUT % 49.9 % (16.0-70.0); PLATELET COUNT 243 TH/MM3 (150-450); RED BLOOD COUNT 3.63 MIL/MM3 (4.00-5.30); RED CELL DISTRIBUTION WIDTH 14.4 % (11.6-17.2); WHITE BLOOD COUNT 7.7 TH/MM3 (4.0-11.0)
[2016-11-22] MEDS: PANTOPRAZOLE SOD 20 MG DELAYED RELEASE TAB PO SCH (08:26)
[2016-11-22] MEDS: SODIUM CHLORIDE 0.9% FLUSH 5 ML FLUSH FLUSH SCH ×2 (08:26→20:50)
[2016-11-22] MEDS: SODIUM CHLOR 0.9% 1000 ML INJ 1,000 ML IV SCH ×2 (08:26→17:35)
[2016-11-22 09:17] LABS: ALKALINE PHOSPHATASE 157 U/L (45-117); ALT (GPT) 755 U/L (10-53); ANION GAP 12 MEQ/L (5-15); AST (GOT) 737 U/L (15-37); BICARBONATE 24.7 MEQ/L (21.0-32.0); BLOOD UREA NITROGEN 7 MG/DL (7-18); CHLORIDE 101 MEQ/L (98-107); GLOMERULAR FILTRATION RATE 68 ML/MIN (>89); POTASSIUM 3.4 MEQ/L (3.5-5.1); SODIUM (NA) 138 MEQ/L (136-145); TOTAL BILIRUBIN ADULT 2.7 MG/DL (0.2-1.0)
[2016-11-22 10:36] LABS: ANA SCREEN POS (NEG)
--- NOTE | 2016-11-22 11:24 | HHI.PR ---
Subjective Remarks Sen after she returned from HIDA scan./ Patient sya she has pain and she is asking for pain meds. no fevr or chills. VSS. Still with nausea, no vomiting. No diarrhea. Objective Vitals Vital Signs Date Time Temp Pulse Resp B/P Pulse Ox O2 Delivery O2 Flow Rate FiO2 11/22/16 09:41 96.0 56 16 102/62 100 11/22/16 04:00 97.0 82 16 112/59 98 11/22/16 00:00 97.5 56 17 105/67 100 11/21/16 20:00 96.1 61 16 100/63 97 11/21/16 20:00 56 11/21/16 19:12 18 11/21/16 16:00 97.3 66 16 108/60 99 11/21/16 12:15 97.7 67 16 116/69 96 11/21/16 11:50 68 16 102/60 98 I/O 11/21/16 11/21/16 11/21/16 11/22/16 11/22/16 11/22/16 07:00 15:00 23:00 07:00 15:00 23:00 Intake Total 0 ml 0 ml 917 ml Output Total 200 ml 200 ml 200 ml Balance -200 ml -200 ml 717 ml Intake Oral 0 ml 0 ml IV Total 917 ml Output Urine Total 200 ml 200 ml 200 ml # Bowel Movements 1 Result Diagram: 11/22/16 0756 11/22/16 0756 Imaging Last Impressions Abdomen/Pelvis CT 11/21/16 0320 Signed Impressions: Service Date/Time: Monday, November 21, 2016 03:33 - CONCLUSION: 1. Trace amount of pericholecystic fluid. If there is concern for cholecystitis radionuclide imaging is recommended Matt Stack MD Hepatobiliary Scan Nuclear Medicine 11/21/16 0000 Signed Impressions: Service Date/Time: Monday, November 21, 2016 13:00 - CONCLUSION: 1. Absent gallbladder activity characteristic of cystic duct obstruction. This can be correlative with cholecystitis. 2. Mildly diminished hepatic function. 3. No biliary ductal obstruction. Michelet Chun MD Gall Bladder Ultrasound 11/21/16 0000 Signed Impressions: Service Date/Time: Monday, November 21, 2016 17:23 - CONCLUSION: 1. Extensive gallbladder sludge with trace pericholecystic fluid. No biliary ductal dilatation. No free fluid around the liver. Michelet Chun MD Objective Remarks GENERAL: This is a well-nourished, well-developed patient, in no apparent distress. SKIN: No rashes, ecchymoses or lesions. Cool and dry. HEAD: Atraumatic. Normocephalic. No temporal or scalp tenderness. EYES: Pupils equal round and reactive. Extraocular motions intact. No scleral icterus. No injection or drainage. ENT: Nose without bleeding, purulent drainage or septal hematoma. Throat without erythema, tonsillar hypertrophy or exudate. Uvula midline. Airway patent. NECK: Trachea midline. No JVD or lymphadenopathy. Supple, nontender, no meningeal signs. CARDIOVASCULAR: Regular rate and rhythm without murmurs, gallops, or rubs. RESPIRATORY: Clear to auscultation. Breath sounds equal bilaterally. No wheezes , rales, or rhonchi. GASTROINTESTINAL: Abdomen soft, non-tender, nondistended. No hepato-splenomegaly , or palpable masses. No guarding. MUSCULOSKELETAL: Extremities without clubbing, cyanosis, or edema. No joint tenderness, effusion, or edema noted. No calf tenderness. Negative Homans sign bilaterally. NEUROLOGICAL: Awake and alert. Cranial nerves II through XII intact. Motor and sensory grossly within normal limits. Five out of 5 muscle strength in all muscle groups. Normal speech. A/P Assessment and Plan Abdominal pain poss cholecystitis Transaminitis. Bilirubin 2.1, AST 618, ALT 634 on admission. Check hepatitis panel. Consult GI as well Monitor UTI CT shows pericholecystic fluid without obvious cholecystitis otherwise. General surgery consult. Consult GI Start maintenance fluids and Zosyn IV. Pain control. PPI NPO H/o polysubstance use heroin, marijuana use. Tobacco use. Counselled. Patient says last use of heroin was 5 month ago. VSS. Patient complaints of pain will give toradol, add for breakthrough pain. DVT ppx lovenox Code Status full code Discussed Condition With patient, nurse Carmen Rivera MD Nov 22, 2016 11:24
[2016-11-22] MEDS ORDERED: KETOROLAC TROMETHAMINE 60 MG/2 ML (IM) VIAL IM PRN (11:30)
--- NOTE | 2016-11-22 12:03 | PD.CAR.PN ---
CVT Progress Note Subjective/Hospital Course: Patient with classic signs of biliary colic US and HIDA confirmatory GI consult appreciated' For lap choly tomorrow J Objective: Vital Signs Date Time Temp Pulse Resp B/P Pulse Ox O2 Delivery O2 Flow Rate FiO2 11/22/16 09:41 96.0 56 16 102/62 100 11/22/16 04:00 97.0 82 16 112/59 98 11/22/16 00:00 97.5 56 17 105/67 100 11/21/16 20:00 96.1 61 16 100/63 97 11/21/16 20:00 56 11/21/16 19:12 18 11/21/16 16:00 97.3 66 16 108/60 99 11/21/16 12:15 97.7 67 16 116/69 96 Labs: Laboratory Tests Test 11/22/16 07:56 White Blood Count 7.7 TH/MM3 (4.0-11.0) Red Blood Count 3.63 MIL/MM3 (4.00-5.30) Hemoglobin 10.9 GM/DL (11.6-15.3) Hematocrit 31.9 % (35.0-46.0) Mean Corpuscular Volume 87.7 FL (80.0-100.0) Mean Corpuscular Hemoglobin 30.0 PG (27.0-34.0) Mean Corpuscular Hemoglobin 34.2 % Concent (32.0-36.0) Red Cell Distribution Width 14.4 % (11.6-17.2) Platelet Count 243 TH/MM3 (150-450) Mean Platelet Volume 8.4 FL (7.0-11.0) Neutrophils (%) (Auto) 49.9 % (16.0-70.0) Lymphocytes (%) (Auto) 39.2 % (9.0-44.0) Monocytes (%) (Auto) 8.7 % (0.0-8.0) Eosinophils (%) (Auto) 0.8 % (0.0-4.0) Basophils (%) (Auto) 1.4 % (0.0-2.0) Neutrophils # (Auto) 3.8 TH/MM3 (1.8-7.7) Lymphocytes # (Auto) 3.0 TH/MM3 (1.0-4.8) Monocytes # (Auto) 0.7 TH/MM3 (0-0.9) Eosinophils # (Auto) 0.1 TH/MM3 (0-0.4) Basophils # (Auto) 0.1 TH/MM3 (0-0.2) CBC Comment DIFF FINAL Differential Comment Sodium Level 138 MEQ/L (136-145) Potassium Level 3.4 MEQ/L (3.5-5.1) Chloride Level 101 MEQ/L (98-107) Carbon Dioxide Level 24.7 MEQ/L (21.0-32.0) Anion Gap 12 MEQ/L (5-15) Blood Urea Nitrogen 7 MG/DL (7-18) Creatinine 0.98 MG/DL (0.50-1.00) Estimat Glomerular Filtration 68 ML/MIN (>89) Rate Random Glucose 73 MG/DL (74-106) Calcium Level 8.3 MG/DL (8.5-10.1) Total Bilirubin 2.7 MG/DL (0.2-1.0) Aspartate Amino Transf 737 U/L (15-37) (AST/SGOT) Alanine Aminotransferase 755 U/L (10-53) (ALT/SGPT) Alkaline Phosphatase 157 U/L (45-117) Total Protein 7.3 GM/DL (6.4-8.2) Albumin 2.8 GM/DL (3.4-5.0) Result Diagram: 11/22/16 0756 11/22/16 0756 Mabel Lam MD Nov 22, 2016 12:03
[2016-11-22] MEDS: ONDANSETRON HCL 4 MG/2 ML VIAL IVP PRN ×2 (12:35→20:43)
[2016-11-22] MEDS ORDERED: oxyCODONE/ACETAMINOPHEN 5 MG/325 MG TAB PO PRN (14:00)
[2016-11-22] MEDS ORDERED: KETOROLAC TROMETHAMINE 30 MG/ML (IVP) VIAL IVP PRN (14:00)
[2016-11-22] MEDS: ACETAMINOPHEN/HYDROcodone 325 MG/5 MG TAB PO PRN ×2 (15:14→20:41)
--- NOTE | 2016-11-22 15:34 | HHI.GIFU ---
Subjective Remarks Patient is resting in bed, still with RUQ pain, nausea and vomiting, not able to tolerate clears. Plan for cholecystectomy tomorrow Objective Vitals I&O Vital Signs Date Time Temp Pulse Resp B/P Pulse Ox O2 Delivery O2 Flow Rate FiO2 11/22/16 12:00 98.0 63 16 110/78 99 11/22/16 09:41 96.0 56 16 102/62 100 11/22/16 04:00 97.0 82 16 112/59 98 11/22/16 00:00 97.5 56 17 105/67 100 11/21/16 20:00 96.1 61 16 100/63 97 11/21/16 20:00 56 11/21/16 19:12 18 11/21/16 16:00 97.3 66 16 108/60 99 I/O 11/21/16 11/21/16 11/21/16 11/22/16 11/22/16 11/22/16 07:00 15:00 23:00 07:00 15:00 23:00 Intake Total 0 ml 0 ml 917 ml Output Total 200 ml 200 ml 200 ml Balance -200 ml -200 ml 717 ml Intake Oral 0 ml 0 ml IV Total 917 ml Output Urine Total 200 ml 200 ml 200 ml # Bowel Movements 1 Laboratory Laboratory Tests Test 11/21/16 11/21/16 11/22/16 18:22 18:26 07:56 Salicylates Level LESS THAN 1.7 Anti-Nuclear Antibody Screen POS Hepatitis A IgM Antibody NEGATIVE Hepatitis B Surface Antigen NEGATIVE Hepatitis B Core IgM Antibody NEGATIVE Hepatitis C Antibody REACTIVE White Blood Count 7.7 Red Blood Count 3.63 Hemoglobin 10.9 Hematocrit 31.9 Mean Corpuscular Volume 87.7 Mean Corpuscular Hemoglobin 30.0 Mean Corpuscular Hemoglobin 34.2 Concent Red Cell Distribution Width 14.4 Platelet Count 243 Mean Platelet Volume 8.4 Neutrophils (%) (Auto) 49.9 Lymphocytes (%) (Auto) 39.2 Monocytes (%) (Auto) 8.7 Eosinophils (%) (Auto) 0.8 Basophils (%) (Auto) 1.4 Neutrophils # (Auto) 3.8 Lymphocytes # (Auto) 3.0 Monocytes # (Auto) 0.7 Eosinophils # (Auto) 0.1 Basophils # (Auto) 0.1 CBC Comment DIFF FINAL Differential Comment Sodium Level 138 Potassium Level 3.4 Chloride Level 101 Carbon Dioxide Level 24.7 Anion Gap 12 Blood Urea Nitrogen 7 Creatinine 0.98 Estimat Glomerular Filtration 68 Rate Random Glucose 73 Calcium Level 8.3 Total Bilirubin 2.7 Aspartate Amino Transf 737 (AST/SGOT) Alanine Aminotransferase 755 (ALT/SGPT) Alkaline Phosphatase 157 Total Protein 7.3 Albumin 2.8 Date/Time Procedure Status Source Growth 11/21/16 01:45 Urine Culture - Final Complete Urine Clean Catch 50-100,000 CFU/ML MIXED GRAM POSITIVE... Imaging Last Impressions Abdomen/Pelvis CT 11/21/16 0320 Signed Impressions: Service Date/Time: Monday, November 21, 2016 03:33 - CONCLUSION: 1. Trace amount of pericholecystic fluid. If there is concern for cholecystitis radionuclide imaging is recommended Matt Stack MD Hepatobiliary Scan Nuclear Medicine 11/21/16 0000 Signed Impressions: Service Date/Time: Monday, November 21, 2016 13:00 - CONCLUSION: 1. Absent gallbladder activity characteristic of cystic duct obstruction. This can be correlative with cholecystitis. 2. Mildly diminished hepatic function. 3. No biliary ductal obstruction. Michelet Chun MD Gall Bladder Ultrasound 11/21/16 0000 Signed Impressions: Service Date/Time: Monday, November 21, 2016 17:23 - CONCLUSION: 1. Extensive gallbladder sludge with trace pericholecystic fluid. No biliary ductal dilatation. No free fluid around the liver. Michelet Chun MD Physical Exam HEENT: Pupils round and reactive to light; normocephalic; atraumatic; no jaundice. NECK: Neck is supple, no JVD, no lymphadenopathy. CHEST: Chest is clear to auscultation and percussion. CARDIAC: Regular rate and rhythm with no murmur gallop or rubs. ABDOMEN: Soft, nondistended, RUQ pain ; no hepatosplenomegaly; bowel sounds are present in all four quadrants. EXTREMITIES: No clubbing, cyanosis, or edema. SKIN: Normal; no rash; no jaundice. 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 Assessment and Plan Plan ASSESSMENT: - N/V, RUQ pain. Abdomen/Pelvis CT (11/21/16)----> 1. Trace amount of pericholecystic fluid. If there is concern for cholecystitis radionuclide imaging is recommended. HIDA (2/19/17)-----> 1. Absent gallbladder activity characteristic of cystic duct obstruction. This can be correlative with cholecystitis. 2. Mildly diminished hepatic function. 3. No biliary ductal obstruction. S/P US (11/21/16) ---> Extensive gallbladder sludge with trace pericholecystic fluid. No biliary ductal dilatation. No free fluid around the liver, GS following, plan to have cholecystectomy in the am - Elevated LFTs. worsening today, No biliary dilatation on CT or HIDA. Does have pericholecystic fluid on CT, absent GB activity, characteristic of cystic duct obstruction. MAU (+), ASMA P, AMA P, Ceruloplasmin, Alpha antitrypsin deficiency, and celiac panel Pending. Iron saturation 21.6 Fe 512 Toxicology was negative for salicylates, acetaminophen and alcohol - Acute cholecystitis. GS following, cholecystectomy in the am - Hep-C (+)- hx of IVDA, will order Hep-C PCR PLAN: - Diet per GS - Hep- C PCR - PPI - Zosyn - Await ASMA, AMA, Celiac panel, Ceruloplasmin, Alpha Antitrypsin - LFTs in am - GS, cholecystectomy in the am - Supportive care - Further recommendations to follow based on results of above - Pt seen and examined by Dr. Banegas and myself and this note is written on his behalf Marci Belle Nov 22, 2016 15:34
[2016-11-23] VITALS (7 sets, daily range): BP systolic 107–132; BP diastolic 63–78; PULSE 55–86; RESP 16–20; TEMP 96.5–97.6; O2SAT 96–98
[2016-11-23] MEDS: ACETAMINOPHEN/HYDROcodone 325 MG/5 MG TAB PO PRN ×2 (00:39→05:12)
[2016-11-23] MEDS: SODIUM CHLORID 0.9% 500 ML IV SCH ×2 (03:44→20:25)
[2016-11-23] MEDS: LACTATED RINGER'S 1000 ML IV SCH (03:44)
[2016-11-23] MEDS: PIPERACIL-TAZO 4.5 GM PREMIX 100 ML IV SCH ×5 (04:01→20:11)
[2016-11-23] MEDS: SODIUM CHLOR 0.9% 1000 ML INJ 1,000 ML IV SCH ×2 (04:01→16:25)
[2016-11-23] MEDS: ONDANSETRON HCL 4 MG/2 ML VIAL IVP PRN ×2 (05:07→20:30)
[2016-11-23 08:06] LABS: ALKALINE PHOSPHATASE 148 U/L (45-117); ALT (GPT) 690 U/L (10-53); AST (GOT) 539 U/L (15-37); INDIRECT BILIRUBIN 0.6 MG/DL (0.0-0.8)
[2016-11-23] MEDS: PANTOPRAZOLE SOD 20 MG DELAYED RELEASE TAB PO SCH (08:11)
[2016-11-23] MEDS: SODIUM CHLORIDE 0.9% FLUSH 5 ML FLUSH FLUSH SCH ×2 (08:11→20:13)
[2016-11-23] MEDS: KETOROLAC TROMETHAMINE 30 MG/ML (IVP) VIAL IVP PRN (09:14)
[2016-11-23] MEDS ORDERED: BUPIVACAINE/EPINEPHRINE 0.5% PF 30 ML VIAL ONE (10:15)
[2016-11-23] MEDS ORDERED: NEOSTIGMINE 3 MG/3 ML SYR IV ONE (10:59)
[2016-11-23] MEDS ORDERED: PROPOFOL 200 MG/20 ML AMP IV ONE (10:59)
[2016-11-23] MEDS ORDERED: LACTATED RINGER'S 1000 ML INJ 1,000 ML IV ONE (10:59)
[2016-11-23] MEDS ORDERED: DEXAMETHASONE SOD PHOS 4 MG/ML VIAL ONE (12:31)
[2016-11-23] MEDS ORDERED: MIDAZOLAM HCL 2 MG/2 ML VIAL ONE (12:31)
[2016-11-23] MEDS ORDERED: FAMOTIDINE 20 MG/2 ML VIAL ONE (12:31)
[2016-11-23] MEDS ORDERED: ONDANSETRON HCL 4 MG/2 ML VIAL ONE (12:31)
[2016-11-23] MEDS ORDERED: HYDROmorphone HCL PF 2 MG/ML VIAL ONE (12:32)
[2016-11-23] MEDS ORDERED: fentaNYL CITRATE 250 MCG/5 ML AMP ONE (12:37)
[2016-11-23 13:16] LABS: BETA HCG QUANT LESS THAN 1 MIU/ML (0-5)
--- NOTE | 2016-11-23 14:52 | HHI.PR ---
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 Plan for surgery dafne today./ Patient says pain is fairly controlled by meds. Nausea but no vomiting. No fever or chills. Objective Vitals Vital Signs Date Time Temp Pulse Resp B/P Pulse Ox O2 Delivery O2 Flow Rate FiO2 11/23/16 12:00 97.2 61 18 132/68 97 11/23/16 08:00 97.2 55 18 114/63 97 11/23/16 04:00 97.1 73 17 107/64 96 11/23/16 00:00 96.9 59 18 111/72 97 11/22/16 16:00 97.9 55 16 118/66 99 I/O 11/22/16 11/22/16 11/22/16 11/23/16 11/23/16 11/23/16 07:00 15:00 23:00 07:00 15:00 23:00 Intake Total 1397 ml 0 ml 1010 ml 555 ml Output Total 200 ml 800 ml 200 ml Balance 1197 ml -800 ml 1010 ml 355 ml Intake Oral 480 ml 0 ml IV Total 917 ml 1010 ml 555 ml Output Urine Total 200 ml 800 ml 200 ml # Voids 1 2 Result Diagram: 11/22/16 0756 11/22/16 0756 Imaging Last Impressions Abdomen/Pelvis CT 11/21/16 0320 Signed Impressions: Service Date/Time: Monday, November 21, 2016 03:33 - CONCLUSION: 1. Trace amount of pericholecystic fluid. If there is concern for cholecystitis radionuclide imaging is recommended Matt Stack MD Hepatobiliary Scan Nuclear Medicine 11/21/16 0000 Signed Impressions: Service Date/Time: Monday, November 21, 2016 13:00 - CONCLUSION: 1. Absent gallbladder activity characteristic of cystic duct obstruction. This can be correlative with cholecystitis. 2. Mildly diminished hepatic function. 3. No biliary ductal obstruction. Michelet Cuhn MD Gall Bladder Ultrasound 11/21/16 0000 Signed Impressions: Service Date/Time: Monday, November 21, 2016 17:23 - CONCLUSION: 1. Extensive gallbladder sludge with trace pericholecystic fluid. No biliary ductal dilatation. No free fluid around the liver. Michelet Chun MD Objective Remarks GENERAL: This is a well-nourished, well-developed patient, in no apparent distress. SKIN: No rashes, ecchymoses or lesions. Cool and dry. HEAD: Atraumatic. Normocephalic. No temporal or scalp tenderness. EYES: Pupils equal round and reactive. Extraocular motions intact. No scleral icterus. No injection or drainage. ENT: Nose without bleeding, purulent drainage or septal hematoma. Throat without erythema, tonsillar hypertrophy or exudate. Uvula midline. Airway patent. NECK: Trachea midline. No JVD or lymphadenopathy. Supple, nontender, no meningeal signs. CARDIOVASCULAR: Regular rate and rhythm without murmurs, gallops, or rubs. RESPIRATORY: Clear to auscultation. Breath sounds equal bilaterally. No wheezes , rales, or rhonchi. GASTROINTESTINAL: Abdomen soft, non-tender, nondistended. No hepato-splenomegaly , or palpable masses. No guarding. MUSCULOSKELETAL: Extremities without clubbing, cyanosis, or edema. No joint tenderness, effusion, or edema noted. No calf tenderness. Negative Homans sign bilaterally. NEUROLOGICAL: Awake and alert. Cranial nerves II through XII intact. Motor and sensory grossly within normal limits. Five out of 5 muscle strength in all muscle groups. Normal speech. A/P Assessment and Plan Abdominal pain poss cholecystitis. Plan for dafne. Gen surgery following Transaminitis. Hep C. Bilirubin 2.1, AST 618, ALT 634 on admission. Check hepatitis panel. Positive for hep C, to follow up as OP. Consult GI. Monitor UTI CT shows pericholecystic fluid without obvious cholecystitis otherwise. General surgery consult. Consult GI Start maintenance fluids and Zosyn IV. Pain control. PPI NPO H/o polysubstance use heroin, marijuana use. Tobacco use. Counselled. Patient says last use of heroin was 5 month ago. VSS. Patient complaints of pain will give toradol IV , norco po, add toradol for breakthrough pain. DVT ppx lovenox Code Status full code Discussed Condition With patient, nurse NIMESH whrn improved and cleared by consultants poss tomorrow Carmen Rivera MD Nov 23, 2016 14:52
[2016-11-23] MEDS ORDERED: HYDROmorphone HCL PF 1 MG/ML VIAL IV ONE (15:37)
[2016-11-23] MEDS ORDERED: DO NOT ADM ANY ANTICOAGULANT DRUGS XX PRN (15:40)
[2016-11-23] MEDS ORDERED: MORPHINE SULFATE 4 MG/ML INJ ONE (15:43)
[2016-11-23] MEDS ORDERED: HYDROmorphone HCL PF 1 MG/ML VIAL IV PRN (15:45)
[2016-11-23] MEDS ORDERED: *HYDROmorphone PF 1 MG VIAL PERIprocedural Use ONLY ONE ×2 (15:51→16:09)
[2016-11-23] MEDS ORDERED: oxyCODONE/ACETAMINOPHEN 5 MG/325 MG TAB PO PRN (16:00)
[2016-11-23] MEDS: HYDROmorphone HCL PF 1 MG/ML VIAL IV PUSH PRN ×3 (18:11→22:28)
[2016-11-23] MEDS: SODIUM CHLORIDE 0.9% FLUSH 5 ML FLUSH FLUSH PRN (18:12)
[2016-11-24] VITALS (10 sets, daily range): BP systolic 100–122; BP diastolic 57–68; PULSE 68–99; RESP 16–22; TEMP 96.1–98.8; O2SAT 91–100
[2016-11-24] MEDS: HYDROmorphone HCL PF 1 MG/ML VIAL IV PUSH PRN ×11 (00:36→21:47)
[2016-11-24] MEDS: LACTATED RINGER'S 1000 ML IV SCH (03:45)
[2016-11-24 03:56] LABS: IGA SERUM 282 mg/dL (81-463); TISSUE TRANSGLUTAMINASE AB IGG ND U/mL (())
[2016-11-24] MEDS: PIPERACIL-TAZO 4.5 GM PREMIX 100 ML IV SCH ×4 (04:18→21:48)
[2016-11-24] MEDS: SODIUM CHLOR 0.9% 1000 ML INJ 1,000 ML IV SCH ×2 (04:23→17:15)
[2016-11-24 06:08] LABS: HEMATOCRIT 22.8 % (35.0-46.0); MEAN CELL VOLUME 89.4 FL (80.0-100.0); MEAN CORPUSCULAR HEMOGLOBIN 30.3 PG (27.0-34.0); MEAN CORPUSCULAR HGB CONC 33.9 % (32.0-36.0); PLATELET COUNT 238 TH/MM3 (150-450); RED BLOOD COUNT 2.55 MIL/MM3 (4.00-5.30); REVIEW FLAG FINAL
[2016-11-24 06:34] LABS: INDIRECT BILIRUBIN 0.7 MG/DL (0.0-0.8)
--- NOTE | 2016-11-24 06:46 | MP ---
cc: ANGELA ROBLES MD DATE OF SURGERY: 11/23/2016 PREOPERATIVE DIAGNOSIS 1. Acute calculous cholecystitis. 2. Elevated liver function tests. POSTOPERATIVE DIAGNOSIS 1. Acute calculous cholecystitis. 2. Elevated liver function tests. OPERATIVE PROCEDURE 1. Laparoscopic cholecystectomy. 2. Liver biopsy. SURGEON Carole ANESTHESIA General. ESTIMATED BLOOD LOSS 150 cc. DETAILS OF PROCEDURE The patient is prepped and draped in usual fashion. A supraumbilical port is placed under direct vision, a Jesus cannula inserted and then the abdomen insufflated with CO2. The patient is positioned in reverse Trendelenburg. A 0-degree camera is inserted and the abdomen visualized. Subxiphoid and two right upper quadrant ports are now placed and then instruments inserted. The liver appears to be beefy red and swollen. The gallbladder is swollen with a layer of fluid overlying it and sort of waterlogged. The gallbladder is now grasped with alligator clamps and elevated. The cystic duct and cystic artery are very carefully dissect with a [place] dissector, triply clipped with Ligaclips and divided. The gallbladder is taken out of the liver bed with a J-hook and delivered through the supraumbilical incision using an EndoCatch bag. The liver is now attended. I discussed this with the screen cleaner and if the liver appeared somewhat swollen they would like a biopsy. Therefore a segment is removed measuring about 8 mm in diameter from the medial aspect of the right lobe. This one is sent separate. Meticulous hemostasis is obtained. A 7 flat LEAH is laid in the subhepatic space and the area irrigated with saline. The instruments are withdrawn. The incisions are closed with 0 Vicryl and 4-0 Monocryl. The patient tolerated the procedure well. Angela ADAMS/DAVINA /4:10 PM /6:33 AM
[2016-11-24] MEDS: PANTOPRAZOLE SOD 20 MG DELAYED RELEASE TAB PO SCH (07:34)
[2016-11-24] MEDS: SODIUM CHLORIDE 0.9% FLUSH 5 ML FLUSH FLUSH SCH (07:34)
[2016-11-24] MEDS: SODIUM CHLORIDE 0.9% FLUSH 5 ML FLUSH FLUSH PRN ×2 (08:23→10:22)
[2016-11-24] MEDS: SODIUM CHLORIDE FLUSH PRN IVF ×2 (12:22→16:18)
--- NOTE | 2016-11-24 13:43 | HHI.GIFU ---
Subjective Remarks Resting in bed. Feeling better. States her drain from surgery was removed today. Objective Vitals I&O Vital Signs Date Time Temp Pulse Resp B/P Pulse Ox O2 Delivery O2 Flow Rate FiO2 11/24/16 10:52 18 11/24/16 10:43 96 11/24/16 08:00 96.1 76 22 116/62 92 11/24/16 04:54 97.9 92 22 113/68 97 11/24/16 00:17 97.8 68 20 107/58 98 11/23/16 20:49 96 21 11/23/16 20:00 96.5 86 20 114/64 96 11/23/16 17:15 97.6 64 16 118/78 98 11/23/16 17:00 16 11/23/16 16:55 97.6 58 16 133/84 98 Nasal Cannula 2 11/23/16 16:45 59 15 134/83 96 Nasal Cannula 2 11/23/16 16:39 15 11/23/16 16:30 60 15 135/82 95 Nasal Cannula 2 11/23/16 16:21 15 11/23/16 16:15 64 15 138/86 95 Nasal Cannula 2 11/23/16 16:00 68 15 142/87 95 Nasal Cannula 2 11/23/16 15:45 70 15 144/80 98 Nasal Cannula 3 11/23/16 15:35 97.7 88 15 143/72 97 Nasal Cannula 3 I/O 11/23/16 11/23/16 11/23/16 11/24/16 11/24/16 11/24/16 07:00 15:00 23:00 07:00 15:00 23:00 Intake Total 555 ml 2322 ml 711 ml Output Total 200 ml 450 ml 30 ml Balance 355 ml 1872 ml 681 ml Intake Oral 120 ml IV Total 555 ml 902 ml 711 ml Other 1300 ml Output Urine Total 200 ml 200 ml Drainage Total 100 ml 30 ml Estimated Blood Loss 150 ml # Voids 2 2 # Bowel Movements 0 Laboratory Laboratory Tests Test 11/24/16 11/24/16 05:00 05:06 Total Bilirubin 2.0 Direct Bilirubin 1.3 Indirect Bilirubin 0.7 Aspartate Amino Transf 462 (AST/SGOT) Alanine Aminotransferase 663 (ALT/SGPT) Alkaline Phosphatase 144 Total Protein 6.8 Albumin 2.8 White Blood Count 12.0 Red Blood Count 2.55 Hemoglobin 7.7 Hematocrit 22.8 Mean Corpuscular Volume 89.4 Mean Corpuscular Hemoglobin 30.3 Mean Corpuscular Hemoglobin 33.9 Concent Red Cell Distribution Width 15.0 Platelet Count 238 Mean Platelet Volume 9.4 Date/Time Procedure Status Source Growth 11/21/16 01:45 Urine Culture - Final Complete Urine Clean Catch 50-100,000 CFU/ML MIXED GRAM POSITIVE... Imaging Last Impressions Abdomen/Pelvis CT 11/21/16 0320 Signed Impressions: Service Date/Time: Monday, November 21, 2016 03:33 - CONCLUSION: 1. Trace amount of pericholecystic fluid. If there is concern for cholecystitis radionuclide imaging is recommended Matt Stack MD Hepatobiliary Scan Nuclear Medicine 11/21/16 0000 Signed Impressions: Service Date/Time: Monday, November 21, 2016 13:00 - CONCLUSION: 1. Absent gallbladder activity characteristic of cystic duct obstruction. This can be correlative with cholecystitis. 2. Mildly diminished hepatic function. 3. No biliary ductal obstruction. Michelet Chun MD Gall Bladder Ultrasound 11/21/16 0000 Signed Impressions: Service Date/Time: Monday, November 21, 2016 17:23 - CONCLUSION: 1. Extensive gallbladder sludge with trace pericholecystic fluid. No biliary ductal dilatation. No free fluid around the liver. Michelet Chun MD Physical Exam HEENT: Normocephalic; atraumatic; no jaundice. NECK: Neck is supple, no JVD, no lymphadenopathy. CHEST: CTA CARDIAC: Regular rate and rhythm with no murmur gallop or rubs. ABDOMEN: Soft, nondistended, mild diffuse tenderness; no hepatosplenomegaly; bowel sounds are present in all four quadrants. Drsg d/i EXTREMITIES: No clubbing, cyanosis, or edema. SKIN: Normal; no rash; no jaundice. OVER THE ROAD DRIVER: No focal deficits; alert and oriented times three. Assessment and Plan Plan ASSESSMENT: - N/V, RUQ pain. Abdomen/Pelvis CT (11/21/16)----> 1. Trace amount of pericholecystic fluid. If there is concern for cholecystitis radionuclide imaging is recommended. HIDA (11/21/16)-----> 1. Absent gallbladder activity characteristic of cystic duct obstruction. This can be correlative with cholecystitis. 2. Mildly diminished hepatic function. 3. No biliary ductal obstruction. S/P US (11/21/16) ---> Extensive gallbladder sludge with trace pericholecystic fluid. No biliary ductal dilatation. No free fluid around the liver, S/P Cholecystectomy 11/23/16. - Elevated LFTs. worsening today, No biliary dilatation on CT or HIDA. Does have pericholecystic fluid on CT, absent GB activity, characteristic of cystic duct obstruction. MAU (+)- titer pending, ASMA negative, AMA P, Ceruloplasmin, Alpha antitrypsin deficiency 267, and celiac panel pending. Iron saturation 21.6 Fe 512 Toxicology was negative for salicylates, acetaminophen and alcohol. HCV antibodies (+). - Acute cholecystitis. GS following,S/P Lap. Mayuri. - Hep-C (+)- hx of IVDA, Genotype/Viral load pending. PLAN: - Diet per GS - Await Hepatitis C Gentotype and viral load - Await MAU titer, AMA, Ceruloplasmin - Monitor labs - S/P Lap. Cholecystectomy - Supportive care - Further recommendations to follow based on results of above - Pt seen and examined by Dr. Banegas and myself and this note is written on his behalf Pita Alarcon Nov 24, 2016 13:43
[2016-11-24 13:56] LABS: ENDOMYSIAL AB TITER ND (<1:5); TISSUE TRANSGLUTAMINASE AB LESS THAN 1 U/mL (())
--- NOTE | 2016-11-24 16:26 | HHI.PR ---
Subjective Remarks The patient was seen earlier today. Patient is controlled by medications. No nausea, vomiting, diarrhea or constipation. Objective Vitals Vital Signs Date Time Temp Pulse Resp B/P Pulse Ox O2 Delivery O2 Flow Rate FiO2 11/24/16 14:41 18 11/24/16 12:00 98.8 87 16 100/63 92 11/24/16 10:43 96 11/24/16 08:00 96.1 76 22 116/62 92 11/24/16 04:54 97.9 92 22 113/68 97 11/24/16 00:17 97.8 68 20 107/58 98 11/23/16 20:49 96 21 11/23/16 20:00 96.5 86 20 114/64 96 11/23/16 17:15 97.6 64 16 118/78 98 11/23/16 17:00 16 11/23/16 16:55 97.6 58 16 133/84 98 Nasal Cannula 2 11/23/16 16:45 59 15 134/83 96 Nasal Cannula 2 11/23/16 16:39 15 11/23/16 16:30 60 15 135/82 95 Nasal Cannula 2 I/O 11/23/16 11/23/16 11/23/16 11/24/16 11/24/16 11/24/16 07:00 15:00 23:00 07:00 15:00 23:00 Intake Total 555 ml 2322 ml 711 ml 0 ml Output Total 200 ml 450 ml 30 ml Balance 355 ml 1872 ml 681 ml 0 ml Intake Oral 120 ml IV Total 555 ml 902 ml 711 ml 0 ml Other 1300 ml Output Urine Total 200 ml 200 ml Drainage Total 100 ml 30 ml Estimated Blood Loss 150 ml # Voids 2 2 # Bowel Movements 0 Result Diagram: 11/24/16 0506 11/22/16 0756 Imaging Last Impressions Abdomen/Pelvis CT 11/21/16 0320 Signed Impressions: Service Date/Time: Monday, November 21, 2016 03:33 - CONCLUSION: 1. Trace amount of pericholecystic fluid. If there is concern for cholecystitis radionuclide imaging is recommended Matt Stack MD Hepatobiliary Scan Nuclear Medicine 11/21/16 0000 Signed Impressions: Service Date/Time: Monday, November 21, 2016 13:00 - CONCLUSION: 1. Absent gallbladder activity characteristic of cystic duct obstruction. This can be correlative with cholecystitis. 2. Mildly diminished hepatic function. 3. No biliary ductal obstruction. Michelet Chun MD Gall Bladder Ultrasound 11/21/16 0000 Signed Impressions: Service Date/Time: Monday, November 21, 2016 17:23 - CONCLUSION: 1. Extensive gallbladder sludge with trace pericholecystic fluid. No biliary ductal dilatation. No free fluid around the liver. Michelet Chun MD Objective Remarks GENERAL: This is a well-nourished, well-developed patient, in no apparent distress. SKIN: No rashes, ecchymoses or lesions. Cool and dry. HEAD: Atraumatic. Normocephalic. No temporal or scalp tenderness. EYES: Pupils equal round and reactive. Extraocular motions intact. No scleral icterus. No injection or drainage. ENT: Nose without bleeding, purulent drainage or septal hematoma. Throat without erythema, tonsillar hypertrophy or exudate. Uvula midline. Airway patent. NECK: Trachea midline. No JVD or lymphadenopathy. Supple, nontender, no meningeal signs. CARDIOVASCULAR: Regular rate and rhythm without murmurs, gallops, or rubs. RESPIRATORY: Clear to auscultation. Breath sounds equal bilaterally. No wheezes , rales, or rhonchi. GASTROINTESTINAL: Abdomen soft, non-tender, nondistended. No hepato-splenomegaly , or palpable masses. No guarding. MUSCULOSKELETAL: Extremities without clubbing, cyanosis, or edema. No joint tenderness, effusion, or edema noted. No calf tenderness. Negative Homans sign bilaterally. NEUROLOGICAL: Awake and alert. Cranial nerves II through XII intact. Motor and sensory grossly within normal limits. Five out of 5 muscle strength in all muscle groups. Normal speech. A/P Assessment and Plan Abdominal pain poss cholecystitis. Plan for dafne. Gen surgery following Transaminitis. Hep C. Bilirubin 2.1, AST 618, ALT 634 on admission. Check hepatitis panel. Positive for hep C, to follow up as OP. Consult GI. Monitor UTI CT shows pericholecystic fluid without obvious cholecystitis otherwise. General surgery consult. S/P dafne Consult GI Start maintenance fluids and Zosyn IV. Pain control. PPI advance diet per surgeon as tolerated H/o polysubstance use heroin, marijuana use. Tobacco use. Counselled. Patient says last use of heroin was 5 month ago. VSS. Patient complaints of pain will give toradol IV , norco po, add toradol for breakthrough pain. DVT ppx lovenox Code Status full code Discussed Condition With patient, nurse Per Dr Lam can be DC tomorrow if improved and tolerates diet DC poss tomorrow Carmen Rivera MD Nov 24, 2016 16:26
[2016-11-24] MEDS: FERROUS SULFATE 325 MG (65 MG ELEMENTAL IRON) TAB PO SCH (17:33)
[2016-11-24] MEDS: ONDANSETRON HCL 4 MG/2 ML VIAL IVP PRN (18:16)
[2016-11-24 18:30] LABS: AUTOMATED NEUTROPHIL # 4.4 TH/MM3 (1.8-7.7); BASOPHIL % 0.5 % (0.0-2.0); EOSINOPHIL % 0.2 % (0.0-4.0); LYMPH % 30.2 % (9.0-44.0); LYMPHOCYTE # 2.2 TH/MM3 (1.0-4.8); MEAN CELL VOLUME 91.1 FL (80.0-100.0); MEAN CORPUSCULAR HEMOGLOBIN 31.1 PG (27.0-34.0); MEAN CORPUSCULAR HGB CONC 34.2 % (32.0-36.0); MONO % 8.7 % (0.0-8.0); NEUT % 60.4 % (16.0-70.0); PLATELET COUNT 230 TH/MM3 (150-450); RED BLOOD COUNT 2.17 MIL/MM3 (4.00-5.30); RED CELL DISTRIBUTION WIDTH 15.7 % (11.6-17.2); WHITE BLOOD COUNT 7.3 TH/MM3 (4.0-11.0)
[2016-11-24 18:34] LABS: HEMO FLAGS AUTO DIFF; REVIEW FLAG AUTO DIFF
[2016-11-24 18:36] LABS: HEMATOCRIT 19.8 % (35.0-46.0)
[2016-11-24 19:02] LABS: SCAN/DIFF AUTO DIFF CONFIRMED
[2016-11-24] MEDS: SODIUM CHLORIDE FLUSH BID IVF SCH (21:47)
[2016-11-25 00:17] VITALS: BP 103/58; PULSE 78; RESP 18; TEMP 98.6; O2SAT 95
[2016-11-25] MEDS: ONDANSETRON HCL 4 MG/2 ML VIAL IVP PRN ×2 (00:40→01:30)
[2016-11-25] MEDS: HYDROmorphone HCL PF 1 MG/ML VIAL IV PUSH PRN ×4 (00:40→11:30)
[2016-11-25 02:47] VITALS: BP 119/62; PULSE 94; RESP 18; TEMP 100.1; O2SAT 97
[2016-11-25 03:11] VITALS: BP 113/61; PULSE 92; RESP 18; TEMP 98.5; O2SAT 100
[2016-11-25 03:52] LABS: MITOCHONDRIAL ABS LESS THAN 20.0 U (())
[2016-11-25 03:52] LABS: HCV RNA PCR IU/ML LESS THAN 15 IU/mL (()); HCV RNA PCR LOGIU/ML LESS THAN 1.18 (())
[2016-11-25] MEDS: SODIUM CHLOR 0.9% 1000 ML INJ 1,000 ML IV SCH (05:10)
[2016-11-25 06:48] VITALS: BP 121/65; PULSE 82; RESP 18; TEMP 98.7; O2SAT 98
[2016-11-25] MEDS: SODIUM CHLORIDE FLUSH BID IVF SCH (07:43)
[2016-11-25] MEDS: PANTOPRAZOLE SOD 20 MG DELAYED RELEASE TAB PO SCH (07:56)
[2016-11-25 08:00] VITALS: BP 112/64; PULSE 81; RESP 16; TEMP 98.3; O2SAT 93
[2016-11-25] MEDS ORDERED: COLA100C3 PO (09:54)
[2016-11-25] MEDS ORDERED: NORC5TAB PO (09:54)
--- NOTE | 2016-11-25 09:55 | HHI.DS ---
Discharge Summary Admission Date Nov 24, 2016 at 10:19 Discharge Date: Nov 25, 2016 Admitting Diagnosis Elevated LFTs, Cystitis, Poss Cholecystitis (1) Cholecystitis ICD Code: K81.9 Diagnosis: Principal (2) S/P cholecystectomy ICD Code: Z90.49 Diagnosis: Principal (3) Anemia ICD Code: D64.9 Diagnosis: Principal (4) Abdominal pain ICD Code: R10.9 Diagnosis: Principal (5) Nausea & vomiting ICD Code: R11.2 Diagnosis: Principal (6) Elevated LFTs ICD Code: R94.5 Diagnosis: Principal (7) Marijuana smoker, continuous ICD Code: F12.20 Diagnosis: Secondary (8) Hepatitis C ICD Code: B19.20 Diagnosis: Secondary Procedures dafne Brief History - From Admission 26-year-old female without significant PMH who came to the ED complaining of nausea, vomiting for the past 2 weeks. For the last 3 days she has been vomiting more constantly and getting worse. She reports normal flatus and normal bowel movements. She also has some upper abdominal pain. Decreased oral intake over the past 3 days. She has been tolerating water occasionally however vomits after drinking or eating anything. She has a history of bipolar disorder and has been on Seroquel. 3 para 0 with 3 abortions. She states she smokes marijuana all day every day in hopes that it may help her vomiting. She smokes 2 packs of cigarettes daily. Former heroin user quit 5 month ago. She denies drinking alcohol. Last menstruation was one year prior. She has no thoughts of hurting herself or others. No vaginal bleeding or discharge. No urinary complaint. She reports a history of IV drug abuse most recently 5 months prior. CBC/BMP: 11/24/16 1810 11/22/16 0756 Significant Findings Laboratory Tests Test 11/23/16 11/24/16 11/24/16 11/24/16 06:30 05:00 05:06 18:10 Total Bilirubin 2.0 MG/DL 2.0 MG/DL (0.2-1.0) (0.2-1.0) Direct Bilirubin 1.4 MG/DL 1.3 MG/DL (0.0-0.2) (0.0-0.2) Aspartate Amino Transf 539 U/L (15-37) 462 U/L (15-37) (AST/SGOT) Alanine Aminotransferase 690 U/L (10-53) 663 U/L (10-53) (ALT/SGPT) Alkaline Phosphatase 148 U/L 144 U/L (45-117) (45-117) Albumin 2.8 GM/DL 2.8 GM/DL (3.4-5.0) (3.4-5.0) White Blood Count 12.0 TH/MM3 (4.0-11.0) Red Blood Count 2.55 MIL/MM3 2.17 MIL/MM3 (4.00-5.30) (4.00-5.30) Hemoglobin 7.7 GM/DL 6.8 GM/DL (11.6-15.3) (11.6-15.3) Hematocrit 22.8 % 19.8 % (35.0-46.0) (35.0-46.0) Monocytes (%) (Auto) 8.7 % (0.0-8.0) Imaging Last Impressions Abdomen/Pelvis CT 11/21/16 0320 Signed Impressions: Service Date/Time: Monday, November 21, 2016 03:33 - CONCLUSION: 1. Trace amount of pericholecystic fluid. If there is concern for cholecystitis radionuclide imaging is recommended Matt Stack MD Hepatobiliary Scan Nuclear Medicine 11/21/16 0000 Signed Impressions: Service Date/Time: Monday, November 21, 2016 13:00 - CONCLUSION: 1. Absent gallbladder activity characteristic of cystic duct obstruction. This can be correlative with cholecystitis. 2. Mildly diminished hepatic function. 3. No biliary ductal obstruction. Michelet Chun MD Gall Bladder Ultrasound 11/21/16 0000 Signed Impressions: Service Date/Time: Monday, November 21, 2016 17:23 - CONCLUSION: 1. Extensive gallbladder sludge with trace pericholecystic fluid. No biliary ductal dilatation. No free fluid around the liver. Michelet Chun MD PE at Discharge GENERAL: This is a well-nourished, well-developed patient, in no apparent distress. SKIN: No rashes, ecchymoses or lesions. Cool and dry. HEAD: Atraumatic. Normocephalic. No temporal or scalp tenderness. EYES: Pupils equal round and reactive. Extraocular motions intact. No scleral icterus. No injection or drainage. ENT: Nose without bleeding, purulent drainage or septal hematoma. Throat without erythema, tonsillar hypertrophy or exudate. Uvula midline. Airway patent. NECK: Trachea midline. No JVD or lymphadenopathy. Supple, nontender, no meningeal signs. CARDIOVASCULAR: Regular rate and rhythm without murmurs, gallops, or rubs. RESPIRATORY: Clear to auscultation. Breath sounds equal bilaterally. No wheezes , rales, or rhonchi. GASTROINTESTINAL: Abdomen soft, non-tender, nondistended. No hepato-splenomegaly , or palpable masses. No guarding. MUSCULOSKELETAL: Extremities without clubbing, cyanosis, or edema. No joint tenderness, effusion, or edema noted. No calf tenderness. Negative Homans sign bilaterally. NEUROLOGICAL: Awake and alert. Cranial nerves II through XII intact. Motor and sensory grossly within normal limits. Five out of 5 muscle strength in all muscle groups. Normal speech. Pt update on day of discharge Patient feels much better. She received 2 U blood overnight. Repeat Hgb is 9.1. Feels much better. No fever or chills. Tolerates food. Cleared by consultants for DC. Hospital Course Abdominal pain 2/2 holecystitis. s/p dafne. Gen surgery following Transaminitis. Hep C. Bilirubin 2.1, AST 618, ALT 634 on admission. Check hepatitis panel. Positive for hep C, to follow up as OP. Seen by GI. Monitor. To follow up as OP UTI Anemia postsurgical hgb 6.8. received 2 u prbc 11/24. Repeat HGB 9.1. Stable. Will have ferrous sulfate supplement as OP. CT shows pericholecystic fluid without obvious cholecystitis otherwise. General surgery consult. S/P dafne by Dr Lam Consult GI Start maintenance fluids and Zosyn IV. DC abx Pain control. PPI advance diet per surgeon as tolerated H/o polysubstance use heroin, marijuana use. Tobacco use. Counselled. Patient says last use of heroin was 5 month ago. VSS. Patient complaints of pain on received dilaudid , norco po, DVT ppx lovenox Code Status full code Discussed Condition With patient, nurse Improved, cleared by consultants for DC, to follow up as OP with PCP and consultants. Pt Condition on Discharge: Stable Discharge Disposition: Discharge Home Discharge Time: <= 30 minutes Discharge Instructions DIET: Follow Instructions for: As Tolerated, No Restrictions Activities you can perform: Regular-No Restrictions Follow up Referrals: Appointment for Follow Up - 1 Week with Mabel Lam MD Appointment for Follow Up - 3 Weeks with Ingrid Banegas MD Gastroenterology - 2 Weeks PCP Follow-up - 3-5 Days New Medications: Docusate Sodium (Colace) 100 Mg Cap 100 MG PO BID Constipation #60 Ref 0 CAP Ferrous Sulfate (Ferrous Sulfate) 325 Mg Tab 325 MG PO DAILY Nutritional Supplement #30 Ref 0 TAB Oxycodone-Acetaminophen (Percocet) 5-325 mg Tab 1 TAB PO Q6H PRN PAIN #14 Ref 0 TAB Continued Medications: Miscellaneous (Office Medication) Misc Quetiapine (Seroquel) 300 Mg Tab 300 MG PO BID #60 Ref 0 TAB Carmen Rivera MD Nov 25, 2016 09:54
[2016-11-25] MEDS ORDERED: FERR325T PO (09:58)
[2016-11-25] MEDS: PIPERACIL-TAZO 4.5 GM PREMIX 100 ML IV SCH ×2 (10:00→11:29)
[2016-11-25] MEDS ORDERED: PERC5TAB12 PO (10:08)
[2016-11-25] MEDS ORDERED: ACETAMINOPHEN/HYDROcodone 325 MG/10 MG TAB PO ONE (10:15)
[2016-11-25] MEDS ORDERED: oxyCODONE/ACETAMINOPHEN 10 MG/325 MG TAB PO ONE (10:15)
[2016-11-25 10:41] LABS: AUTOMATED NEUTROPHIL # 4.7 TH/MM3 (1.8-7.7); BASOPHIL # 0.1 TH/MM3 (0-0.2); BASOPHIL % 0.7 % (0.0-2.0); EOSINOPHIL % 0.3 % (0.0-4.0); HEMATOCRIT 25.8 % (35.0-46.0); HEMO FLAGS DIFF FINAL; LYMPH % 37.1 % (9.0-44.0); LYMPHOCYTE # 3.3 TH/MM3 (1.0-4.8); MEAN CORPUSCULAR HEMOGLOBIN 30.1 PG (27.0-34.0); MEAN CORPUSCULAR HGB CONC 35.4 % (32.0-36.0); MONO % 9.8 % (0.0-8.0); NEUT % 52.1 % (16.0-70.0); PLATELET COUNT 216 TH/MM3 (150-450); RED BLOOD COUNT 3.04 MIL/MM3 (4.00-5.30); RED CELL DISTRIBUTION WIDTH 16.9 % (11.6-17.2)
[2016-11-25 11:07] LABS: MAGNESIUM 2.2 MG/DL (1.5-2.5); POTASSIUM 3.7 MEQ/L (3.5-5.1)
[2016-11-25] MEDS: FERROUS SULFATE 325 MG (65 MG ELEMENTAL IRON) TAB PO SCH (11:29)
[2016-11-25 12:03] VITALS: BP 107/61; PULSE 77; RESP 18; TEMP 98.1; O2SAT 94
--- NOTE | 2016-11-25 14:17 | PD.CAR.PN ---
CVT Progress Note Subjective/Hospital Course: Patient with classic signs of biliary colic US and HIDA confirmatory GI consult appreciated' For lap choly tomorrow J 11/24/2016 Incision is clean and dry LEAH drain has been removed There was some drainage around the LEAH of old the serosanguineous material but this has stopped now Patient is very thin abdominal wall and hence the drainage Abdomen is soft active bowel sounds and patient is passing gas tolerating diet well Received 1 units of PRBC yesterday and dropping hemoglobin is obviously result of surgery combined with delusional effect and as well the fact the patient has a fairly heavy menstrual period Now hemoglobin is normalized and patient can be discharged from my point Can shower daily and get incisions wet Follow-up with me in about 2 weeks Objective: Vital Signs Date Time Temp Pulse Resp B/P Pulse Ox O2 Delivery O2 Flow Rate FiO2 11/25/16 12:03 98.1 77 18 107/61 94 11/25/16 08:00 98.3 81 16 112/64 93 11/25/16 06:48 98.7 82 18 121/65 98 11/25/16 03:11 98.5 92 18 113/61 100 11/25/16 02:47 100.1 94 18 119/62 97 11/25/16 00:17 98.6 78 18 103/58 95 11/24/16 22:53 97.7 75 18 102/57 100 11/24/16 22:30 97.9 99 18 109/59 92 11/24/16 20:20 97.4 92 18 122/62 95 11/24/16 18:46 18 11/24/16 18:28 91 21 11/24/16 16:00 97.5 75 22 104/59 91 11/24/16 14:41 18 Labs: Laboratory Tests Test 11/25/16 10:20 White Blood Count 9.0 TH/MM3 (4.0-11.0) Red Blood Count 3.04 MIL/MM3 (4.00-5.30) Hemoglobin 9.1 GM/DL (11.6-15.3) Hematocrit 25.8 % (35.0-46.0) Mean Corpuscular Volume 85.0 FL (80.0-100.0) Mean Corpuscular Hemoglobin 30.1 PG (27.0-34.0) Mean Corpuscular Hemoglobin 35.4 % Concent (32.0-36.0) Red Cell Distribution Width 16.9 % (11.6-17.2) Platelet Count 216 TH/MM3 (150-450) Mean Platelet Volume 8.3 FL (7.0-11.0) Neutrophils (%) (Auto) 52.1 % (16.0-70.0) Lymphocytes (%) (Auto) 37.1 % (9.0-44.0) Monocytes (%) (Auto) 9.8 % (0.0-8.0) Eosinophils (%) (Auto) 0.3 % (0.0-4.0) Basophils (%) (Auto) 0.7 % (0.0-2.0) Neutrophils # (Auto) 4.7 TH/MM3 (1.8-7.7) Lymphocytes # (Auto) 3.3 TH/MM3 (1.0-4.8) Monocytes # (Auto) 0.9 TH/MM3 (0-0.9) Eosinophils # (Auto) 0.0 TH/MM3 (0-0.4) Basophils # (Auto) 0.1 TH/MM3 (0-0.2) CBC Comment DIFF FINAL Differential Comment Sodium Level 137 MEQ/L (136-145) Potassium Level 3.7 MEQ/L (3.5-5.1) Chloride Level 101 MEQ/L (98-107) Carbon Dioxide Level 29.0 MEQ/L (21.0-32.0) Anion Gap 7 MEQ/L (5-15) Blood Urea Nitrogen 4 MG/DL (7-18) Creatinine 0.74 MG/DL (0.50-1.00) Estimat Glomerular Filtration 93 ML/MIN (>89) Rate Random Glucose 91 MG/DL (74-106) Calcium Level 8.5 MG/DL (8.5-10.1) Magnesium Level 2.2 MG/DL (1.5-2.5) Result Diagram: 11/25/16 1020 11/25/16 1020 Mabel Lam MD Nov 25, 2016 14:17
[2016-11-25 23:54] LABS: HEPATITIS C RNA GENOTYPE NOT DETECTED (())
== END 2016-11-25 15:25 | disposition home or self-care (01) | DRG 419 ==
LOC: NEPE 00:41 → NEDA 05:49 → INTOOBSV 05:49 → HOCB 12:15 → N07B 11-23 15:52 → N07A 11-23 17:10 → OBSVTOIN 11-24 10:19
PROVIDERS: ADMIT Hospitalist; ATTEND Hospitalist
PROC: 0FB14ZX Excision of Right Lobe Liver, Percutaneous Endoscopic Approach, Diagnostic (ICD-10-PCS; 2016-11-23)
PROC: 0FT44ZZ Resection of Gallbladder, Percutaneous Endoscopic Approach (ICD-10-PCS; principal; 2016-11-23 13:25)
PROC: 30233N1 Transfusion of Nonautologous Red Blood Cells into Peripheral Vein, Percutaneous Approach (ICD-10-PCS; 2016-11-24)
DX: K81.0 Acute cholecystitis (principal); N30.90 Cystitis, unspecified without hematuria; B19.20 Unspecified viral hepatitis C without hepatic coma; D64.9 Anemia, unspecified; F31.9 Bipolar disorder, unspecified; F17.210 Nicotine dependence, cigarettes, uncomplicated; F12.90 Cannabis use, unspecified, uncomplicated
CPT/HCPCS: 36430; 74177; 76705; 76937; 78226; 80048; 80053; 80074; 80076; 80320; 80329; 81001; 82103; 82390; 82728; 82784; 82977; 83516; 83520; 83540; 83550; 83690; 83735; 84702; 84703; 85014; 85018; 85025; 85027; 86038; 86039; 86256; 86850; 86900; 86901; 86920; 87086; 87522; 87902; 88304; 88307; 88312; 88313; 96361; 96365; 96375; A9537; C1765; G0378; G0480; J1100; J1170; J1885; J2250; J2270; J2405; J2543; J2710; J3010; J7030; J7120; P9016; Q9967

== ENCOUNTER 2016-11-28 18:30 | Emergency (ER) | payer BC ==
[~2016-11-28] VITALS: Ht 167.6 cm; Wt 85.0 kg
[~2016-11-28 18:30] MED LIST changes: -ACET325S8 PO; -ALPR.25 PO; +COLA100C3 PO; +FERR325T PO; -FLUO20SO3 PO; -GABA300C3 PO; +OFFICE MEDICATION; -OXCA150 PO; +PERC5TAB12 PO; -SERO100T PO
[2016-11-28 18:33] VITALS: BP 131/76; PULSE 102; RESP 20; TEMP 97.7; O2SAT 97
[2016-11-28 18:47] VITALS: BP 120/63; PULSE 97; RESP 16; O2SAT 100
[2016-11-28] MEDS ORDERED: SODIUM CHLOR 0.9% 1000 ML INJ 1,000 ML IV SCH (18:52)
[2016-11-28] MEDS ORDERED: MORPHINE SULFATE 4 MG/ML INJ IV PUSH ONE (19:00)
[2016-11-28] MEDS ORDERED: SODIUM CHLORIDE 0.9% FLUSH 5 ML FLUSH IVF PRN (19:00)
[2016-11-28] MEDS ORDERED: ONDANSETRON HCL 4 MG/2 ML VIAL IVP ONE (19:00)
--- NOTE | 2016-11-28 19:04 | PD ---
HPI Chief Complaint: Wound/Suture/Staple Re-Check Time Seen by Provider: 18:54 Travel History International Travel<30 days: No Contact w/Intl Traveler<30days: No Traveled to known affect area: No History of Present Illness HPI Patient comes in complaining of right upper quadrant pain as well as pain around site from her LEAH drain was placed and removed from recent cholecystectomy. Patient states pain has been ongoing since being discharged from the hospital. Patient reports taking Percocet as prescribed for the pain with little to no improvement of symptoms. Patient states that there was a large amount of bleeding coming from the site of the LEAH drain I have since slowed down. Patient describes pain as sharp stabbing like in nature and states this feels different than her gallbladder pain. Denies any chest pain, shortness of breath, fevers, loss or change in bladder, or headaches. PFSH Past Medical History Anxiety: Yes Depression: Yes Diminished Hearing: No Kidney Stones: Yes Reproductive: No Influenza Vaccination: No ?: Not LMP: 11/17/16 : 2 Past Surgical History Cholecystectomy: Yes Genitourinary Surgery: Yes (kidney stones, ) Tonsillectomy: Yes Other Surgery: Yes (2 abortions) Social History Alcohol Use: No Tobacco Use: Yes (1/2 ppd) Substance Use: No Allergies-Medications (Allergen,Severity, Reaction): Coded Allergies: No Known Allergies (Unverified , 11/21/16) Reported Meds & Prescriptions Reported Meds & Active Scripts Active Percocet (Oxycodone-Acetaminophen) 5-325 mg Tab 1 Tab PO Q6H PRN Ferrous Sulfate 325 Mg Tab 325 Mg PO DAILY Colace (Docusate Sodium) 100 Mg Cap 100 Mg PO BID Reported Seroquel (Quetiapine Fumarate) 300 Mg Tab 300 Mg PO BID Review of Systems Except as stated in HPI: all other systems reviewed are Neg Physical Exam Narrative GENERAL: Well-developed, overly nourished, in no acute distress, and non-ill appearing. SKIN: Warm and dry. Well-healing abdominal from recent LEAH drain noted lower aspect of the right upper quadrant there is no sign of drainage or infection. HEAD: Atraumatic. Normocephalic. EYES: Pupils equal and round. EOMI. No scleral icterus. No injection or drainage. ENT: No nasal bleeding or discharge. Mucous membranes pink and moist. NECK: Trachea midline. Supple. No nuclear rigidity. CARDIOVASCULAR: Regular rate and rhythm. No murmur appreciated. RESPIRATORY: No accessory muscle use. No respiratory distress. Clear to auscultation. Breath sounds equal bilaterally. GASTROINTESTINAL: Abdomen soft, patient reports tenderness to palpation right upper and right lower quadrant, nondistended. Hepatic and splenic margins not palpable. Normal bowel sounds 4. No pulsatile mass. MUSCULOSKELETAL: No obvious deformities. No clubbing. No cyanosis. No edema. Full range of motion. NEUROLOGICAL: Awake and alert. No obvious cranial nerve deficits. Motor grossly within normal limits. Normal speech. PSYCHIATRIC: Appropriate mood and affect; insight and judgment normal. Data Data Last Documented VS Vital Signs Date Time Temp Pulse Resp B/P Pulse Ox O2 Delivery O2 Flow Rate FiO2 11/28/16 22:05 20 11/28/16 19:59 100 11/28/16 18:48 93 11/28/16 18:47 120/63 Room Air 11/28/16 18:33 97.7 Orders Complete Blood Count With Diff (11/28/16 18:52) Comprehensive Metabolic Panel (11/28/16 18:52) Lipase (11/28/16 18:52) Prothrombin Time / Inr (Pt) (11/28/16 18:52) Act Partial Throm Time (Ptt) (11/28/16 18:52) Urinalysis - C+S If Indicated (11/28/16 18:52) Abdomen, Flat & Upright (11/28/16 ) Ct Abd/Pel W Iv Contrast(Rout) (11/28/16 18:52) Iv Access Insert/Monitor (11/28/16 18:52) Ecg Monitoring (11/28/16 18:52) Oximetry (11/28/16 18:52) Morphine Inj (Morphine Inj) (11/28/16 19:00) Ondansetron Inj (Zofran Inj) (11/28/16 19:00) Sodium Chlor 0.9% 1000 Ml Inj (Ns 1000 M (11/28/16 18:52) Sodium Chloride 0.9% Flush (Ns Flush) (11/28/16 19:00) Iohexol 350 Inj (Omnipaque 350 Inj) (11/28/16 20:49) Labs Laboratory Tests Test 11/28/16 11/28/16 19:35 20:00 White Blood Count 12.6 TH/MM3 Red Blood Count 3.42 MIL/MM3 Hemoglobin 10.3 GM/DL Hematocrit 29.9 % Mean Corpuscular Volume 87.4 FL Mean Corpuscular Hemoglobin 30.0 PG Mean Corpuscular Hemoglobin 34.4 % Concent Red Cell Distribution Width 17.5 % Platelet Count 276 TH/MM3 Mean Platelet Volume 8.8 FL Neutrophils (%) (Auto) % Lymphocytes (%) (Auto) % Monocytes (%) (Auto) % Eosinophils (%) (Auto) % Basophils (%) (Auto) % Neutrophils # (Auto) TH/MM3 Lymphocytes # (Auto) TH/MM3 Monocytes # (Auto) TH/MM3 Eosinophils # (Auto) TH/MM3 Basophils # (Auto) TH/MM3 CBC Comment AUTO DIFF Differential Total Cells 100 Counted Neutrophils % (Manual) 36 % Lymphocytes % 54 % Monocytes % 7 % Eosinophils % 1 % Basophils % 1 % Neutrophils # (Manual) 4.5 TH/MM3 Differential Comment FINAL DIFF MANUAL Blastocytes 1 % Platelet Estimate NORMAL Platelet Morphology Comment NORMAL Prothrombin Time 10.4 SEC Prothromb Time International 0.9 RATIO Ratio Activated Partial 19.9 SEC Thromboplast Time Sodium Level 137 MEQ/L Potassium Level 3.3 MEQ/L Chloride Level 100 MEQ/L Carbon Dioxide Level 27.4 MEQ/L Anion Gap 10 MEQ/L Blood Urea Nitrogen 8 MG/DL Creatinine 0.95 MG/DL Estimat Glomerular Filtration 70 ML/MIN Rate Random Glucose 101 MG/DL Calcium Level 8.8 MG/DL Total Bilirubin 2.0 MG/DL Aspartate Amino Transf 142 U/L (AST/SGOT) Alanine Aminotransferase 270 U/L (ALT/SGPT) Alkaline Phosphatase 368 U/L Total Protein 7.5 GM/DL Albumin 3.0 GM/DL Lipase 93 U/L Urine Color ORANGE Urine Turbidity HAZY Urine pH 7.0 Urine Specific [place] 1.022 Urine Protein 30 mg/dL Urine Glucose (UA) NEG mg/dL Urine Ketones NEG mg/dL Urine Occult Blood MOD Urine Nitrite NEG Urine Bilirubin NEG Urine Urobilinogen 4.0 MG/DL Urine Leukocyte Esterase SMALL Urine RBC 27 /hpf Urine WBC 8 /hpf Urine Squamous Epithelial 23 /hpf Cells Urine Bacteria RARE /hpf Urine Hyaline Casts 9 /lpf Urine Mucus FEW /lpf Urine Yeast (Budding) OCC Microscopic Urinalysis Comment CULT NOT INDICATED MDM Medical Decision Making Medical Screen Exam Complete: Yes Emergency Medical Condition: Yes Differential Diagnosis Abscess, appendicitis, pancreatitis, postop location, other Narrative Course There was no significant history of vomiting or diarrhea and no fever. The patient appeared comfortable, well hydrated and the abdominal exam was mildly tender without guarding or rebound and no focal tenderness to me. Laboratory and radiologic/CT evaluation revealed fluid collection which was discussed with Dr. Kennedy who preformed the surgery. There was no evidence of an acute, surgical abdomen at this time. There was no clinical evidence to support appendicitis, bowel obstruction, pancreatitis, perforation of gastric ulcer, colitis, diverticulitis, bacterial peritonitis, obstruction, volvulus, hernial incarceration or strangulation at this time. There was no evidence to support vascular pathology such as AAA, mesenteric ischemia. There was also no clinical evidence by history, exam or risk factors to suggest atypical presentation of cardiac disease such as ACS, AMI or atypical angina. No evidence to suggest genitourinary etiology as well. Clinical picture was discussed with the patient , as well as plan of care. The patient was instructed to follow up with their surgeon. Abdominal pain warnings were discussed with the patient. The patient is to return if worsens, pain worsens or changes, develop fever, inability to tolerate fluids with or without vomiting, unable to establish follow up or as needed. The patient agrees with plan. Patient in no obvious distress upon re-evaluation. All pertinent laboratory/ Radiology result(s) discussed with patient. Discussed patient with Dr. Lynn, who is in agreement with plan of care and disposition. Any questions/concerns in reference to patient diagnosis/condition discussed and clarified prior to patient's discharge. Reinforced sheer importance of close follow up with patient 's primary physician or primary care clinic. Instructed patient to return to ED immediately, if symptoms return/worsen. Pt showed understanding of above instructions. Further instructions and recommendations were detailed in discharge paperwork. Pt ambulated without difficulty out of ED at discharge. Physician Communication Physician Communication [phone] Lam, states that the fluid noted on the CAT scan today is from patient's liver biopsy and is safe to discharge home follow up with him in the office on Tuesday. Diagnosis Primary Impression: Abdominal pain Qualified Code: R10.11 - Right upper quadrant abdominal pain Additional Impression: S/P cholecystectomy Referrals: Mabel Lam MD Patient Instructions: Abdominal Pain (ED), General Instructions Additional Instructions: Follow-up with Vivek Lam on Tuesday. Take all medication as previously prescribed. Return to the emergency department if symptoms get worse or fevers. Disposition: 01 DISCHARGE HOME Condition: Stable Joshua Miranda Nov 28, 2016 19:04
[2016-11-28 19:59] VITALS: RESP 0; RESP 20; O2SAT 100
[2016-11-28 20:09] LABS: HEMATOCRIT 29.9 % (35.0-46.0); MEAN CELL VOLUME 87.4 FL (80.0-100.0); MEAN CORPUSCULAR HGB CONC 34.4 % (32.0-36.0); PLATELET COUNT 276 TH/MM3 (150-450); RED BLOOD COUNT 3.42 MIL/MM3 (4.00-5.30); RED CELL DISTRIBUTION WIDTH 17.5 % (11.6-17.2); WHITE BLOOD COUNT 12.6 TH/MM3 (4.0-11.0)
[2016-11-28 20:11] LABS: HEMO FLAGS AUTO DIFF
[2016-11-28 20:15] LABS: ANION GAP 10 MEQ/L (5-15); AST (GOT) 142 U/L (15-37); BICARBONATE 27.4 MEQ/L (21.0-32.0); BLOOD UREA NITROGEN 8 MG/DL (7-18); CHLORIDE 100 MEQ/L (98-107); GLOMERULAR FILTRATION RATE 70 ML/MIN (>89); INTERNATIONAL NORMALIZED RATIO 0.9 RATIO; POTASSIUM 3.3 MEQ/L (3.5-5.1); PROTHROMBIN TIME - PATIENT 10.4 SEC (9.8-11.6); SODIUM (NA) 137 MEQ/L (136-145)
[2016-11-28 20:16] LABS: APTT (PATIENT) 19.9 SEC (24.3-30.1)
[2016-11-28 20:19] LABS: ALKALINE PHOSPHATASE 368 U/L (45-117); ALT (GPT) 270 U/L (10-53)
[2016-11-28 20:39] LABS: BASOPHILS 1 % (0-2); BLASTS 1 % (0-0); EOSINOPHILS 1 % (0-4); NEUTROPHIL # MANUAL DIFF 4.5 TH/MM3 (1.8-7.7); PLATELET ESTIMATE SMEAR NORMAL (NORMAL); PLATELET MORPHOLOGY NORMAL (NORMAL); POLYS (SEG NEUTROPHILS) 36 % (16-70); WBC DIFF SAMPLE 100
[2016-11-28 20:40] LABS: SCAN/DIFF FINAL DIFF MANUAL
[2016-11-28] MEDS ORDERED: IOHEXOL 350 MG/ML 10 ML VIAL (for RAD DIAG) IV ONE (20:49)
[2016-11-28 20:52] LABS: BACTERIA, URINE RARE /hpf; BLOOD, URINE MOD (NEG); GLUCOSE,URINE NEG (NEG); HYALINE CAST, URINE 9 /lpf (RARE); KETONE, URINE NEG (NEG); MUCUS URINE FEW /lpf (OCC); NITRITE,URINE NEG (NEG); SQUAMOUS EPITHELIAL CELL URINE 23 /hpf (0-5)
[2016-11-28 20:54] LABS: URINE COLOR ORANGE (YELLW/STRAW)
[2016-11-28 20:56] LABS: COMMENT (UR) CULT NOT INDICATED; CULTURE IF INDICATED CULT NOT INDICATED
--- NOTE | 2016-11-28 21:10 | RADRPT ---
EXAM DATE/TIME: 11/28/2016 21:04 [facility] COMPARISON: No previous studies available for comparison. INDICATIONS : Right side abdoment pain Post cholecystectomy 6 days MEDICAL HISTORY : None. SURGICAL HISTORY : Cholecystectomy. ENCOUNTER: Initial ACUITY: 4 - 6 days PAIN SCORE: 5/10 LOCATION: Right upper quadrant Abdomen FINDINGS: Supine and upright views of the abdomen were performed. The abdominal bowel gas pattern is normal. No air fluid levels are seen. No abnormal masses, calcifications, or organomegaly is seen. The visu alized lower lungs are clear. No evidence of free intraperitoneal gas. The osseous structures are u nremarkable. Residual contrast in the collecting system bilaterally. Cholecystectomy clips. CONCLUSION: No acute disease. Contreras Chapin MD on November 28, 2016 at 21:08 Board Certified Radiologist. This report was verified electronically.
--- NOTE | 2016-11-28 21:14 | RADRPT ---
EXAM DATE/TIME: 11/28/2016 20:42 [facility] COMPARISON: No previous studies available for comparison. INDICATIONS : Right sided abdominal pain and bleeding; LEAH drain recently removed. IV CONTRAST: 96 cc Omnipaque 350 (iohexol) IV ORAL CONTRAST: No oral contrast ingested. RADIATION DOSE: 12.79 CTDIvol (mGy) MEDICAL HISTORY : None SURGICAL HISTORY : Cholecystectomy. ENCOUNTER: Initial ACUITY: 4 - 6 days PAIN SCALE: 5/10 LOCATION: abdomen TECHNIQUE: Volumetric scanning of the abdomen and pelvis was performed. Using automated exposure control and ad justment of the mA and/or kV according to patient size, radiation dose was kept as low as reasonably achievable to obtain optimal diagnostic quality images. FINDINGS: LOWER LUNGS: The visualized lower lungs are clear. LIVER: Homogeneous density without lesion. There is no dilation of the biliary tree . Patient has had a rec ent cholecystectomy. There is some complex fluid in the cholecystectomy bed. Minimal ascites. Moderat e fluid in the pelvis. SPLEEN: Normal size without lesion. PANCREAS: Within normal limits. KIDNEYS: Normal in size and shape. There is no mass, stone or hydronephrosis. ADRENAL GLANDS: Within normal limits. VASCULAR: There is no aortic aneurysm. BOWEL/MESENTERY: The stomach, small bowel, and colon demonstrate no acute abnormality. There is no free intraperitone al air or fluid. ABDOMINAL WALL: Within normal limits. RETROPERITONEUM: There is no lymphadenopathy. BLADDER: No wall thickening or mass. REPRODUCTIVE: Within normal limits. INGUINAL: There is no lymphadenopathy or hernia. MUSCULOSKELETAL: Within normal limits for patient age. CONCLUSION: There is some complex fluid in the gallbladder fossa status post cholecystectomy with fluid tracking in the pelvis. This could be related to a bile leak or possible hemorrhage. Clinical correlation. HID A scan may be warranted. Contreras Chapin MD on November 28, 2016 at 21:09 Board Certified Radiologist. This report was verified electronically.
[2016-11-28 22:05] VITALS: RESP 20
[2016-11-28 22:32] VITALS: BP 107/69
== END 2016-11-28 22:58 | disposition home or self-care (01) ==
LOC: NEPA 18:30
DX: R10.11 Right upper quadrant pain (principal); F17.210 Nicotine dependence, cigarettes, uncomplicated
CPT/HCPCS: 74020; 74177; 80053; 81001; 83690; 85007; 85027; 85610; 85730; 96361; 96374; 96375; 99283; J2270; J2405; J7030; Q9967

== ENCOUNTER 2017-02-23 20:40 | Emergency (ER) | payer BC ==
[~2017-02-23] VITALS: Ht 167.6 cm; Wt 78.0 kg
[~2017-02-23 20:40] MED LIST changes: -OFFICE MEDICATION
[2017-02-23 20:42] VITALS: BP 120/69; PULSE 117; RESP 15; TEMP 97.9; O2SAT 100
--- NOTE | 2017-02-23 20:56 | PD ---
Physical Exam Time Seen by Provider: 20:54 Narrative 27yo F c/o LUQ abd pain that radiates to back x4days. Reports Vomiting. Denies diarrhea, fever. +Hx kidney stones. LMP x1 month ago. Denies dysuria, hematuria. Patient seen in triage. VS reviewed. Awaiting bed placement. Data Data Last Documented VS Vital Signs Date Time Temp Pulse Resp B/P Pulse Ox O2 Delivery O2 Flow Rate FiO2 02/23/17 20:42 97.9 117 15 120/69 100 Room Air MDM Supervised Visit with TALI: Zulma Villalta February 23, 2017 20:56
[2017-02-23] MEDS ORDERED: ONDANSETRON HCL 4 MG/2 ML VIAL IVP ONE (21:30)
[2017-02-23] MEDS ORDERED: SODIUM CHLORIDE 0.9% FLUSH 10 ML FLUSH IV FLUSH PRN (21:30)
[2017-02-23] MEDS ORDERED: SODIUM CHLOR 0.9% 1000 ML INJ 1,000 ML IV SCH (21:30)
[2017-02-23] MEDS ORDERED: KETOROLAC TROMETHAMINE 30 MG/ML (IVP) VIAL IVP ONE (21:30)
--- NOTE | 2017-02-23 21:32 | PD ---
HPI Chief Complaint: Abdominal Pain Time Seen by Provider: 21:25 Travel History International Travel<30 days: No Contact w/Intl Traveler<30days: No Traveled to known affect area: No History of Present Illness HPI This 20-year-old female presents emergency department for evaluation of epigastric abdominal pain. Patient states that she had her gallbladder removed earlier this year and has had several flares of pain. She states she was here once before for similar pain after her cholecystectomy was told that she was still having flares after her gallbladder was removed. She endorses mild nausea without emesis. No melena and no blood in the stools. No vaginal bleeding or vaginal discharge. Denies any fevers. States the pain is been going on for the past few hours moderate in intensity and not worsening. PFSH Past Medical History Anxiety: Yes Depression: Yes Diminished Hearing: No Kidney Stones: Yes Reproductive: No Tetanus Vaccination: < 5 Years Influenza Vaccination: No ?: Not LMP: 1 MONTH AGO : 2 Past Surgical History Cholecystectomy: Yes Genitourinary Surgery: Yes (kidney stones, ) Tonsillectomy: Yes Other Surgery: Yes (2 abortions) Social History Alcohol Use: No Tobacco Use: Yes (1/2 ppd) Substance Use: No Allergies-Medications (Allergen,Severity, Reaction): Coded Allergies: No Known Allergies (Unverified , 02/23/17) Reported Meds & Prescriptions Reported Meds & Active Scripts Active No Active Prescriptions or Reported Medications Review of Systems Except as stated in HPI: all other systems reviewed are Neg Physical Exam Narrative GENERAL: Well-developed well-nourished in no apparent distress. SKIN: Focused skin assessment warm/dry. HEAD: Atraumatic. Normocephalic. EYES: Pupils equal and round. No scleral icterus. No injection or drainage. ENT: No nasal bleeding or discharge. Mucous membranes pink and moist. NECK: Trachea midline. No JVD. CARDIOVASCULAR: Regular rate and rhythm. No murmur appreciated. RESPIRATORY: No accessory muscle use. Clear to auscultation. Breath sounds equal bilaterally. GASTROINTESTINAL: Abdomen soft, minimal tenderness in the right upper quadrant, nondistended. Hepatic and splenic margins not palpable. No peritoneal signs no rebound no percussive tenderness. MUSCULOSKELETAL: No obvious deformities. No clubbing. No cyanosis. No edema. NEUROLOGICAL: Awake and alert. No obvious cranial nerve deficits. Motor grossly within normal limits. Normal speech. PSYCHIATRIC: Appropriate mood and affect; insight and judgment normal. Data Data Last Documented VS Vital Signs Date Time Temp Pulse Resp B/P Pulse Ox O2 Delivery O2 Flow Rate FiO2 02/23/17 23:28 79 16 97/53 97 02/23/17 20:42 97.9 Room Air Orders Urinalysis - C+S If Indicated (02/23/17 21:02) Ed Urine Pregnancytest Poc (02/23/17 21:02) Complete Blood Count With Diff (02/23/17 21:30) Comprehensive Metabolic Panel (02/23/17 21:30) Lipase (02/23/17 21:30) Iv Access Insert/Monitor (02/23/17 21:30) Ecg Monitoring (02/23/17 21:30) Oximetry (02/23/17 21:30) Ondansetron Inj (Zofran Inj) (02/23/17 21:30) Sodium Chlor 0.9% 1000 Ml Inj (Ns 1000 M (02/23/17 21:30) Sodium Chloride 0.9% Flush (Ns Flush) (02/23/17 21:30) Electrocardiogram (02/23/17 21:30) Ketorolac Inj (Toradol Inj) (02/23/17 21:30) Labs Laboratory Tests Test 02/23/17 02/23/17 21:19 21:45 Urine Color YELLOW Urine Turbidity CLOUDY Urine pH 7.5 Urine Specific [place] 1.026 Urine Protein 30 mg/dL Urine Glucose (UA) NEG mg/dL Urine Ketones NEG mg/dL Urine Occult Blood NEG Urine Nitrite NEG Urine Bilirubin NEG Urine Urobilinogen 4.0 MG/DL Urine Leukocyte Esterase SMALL Urine RBC 8 /hpf Urine WBC 4 /hpf Urine Squamous Epithelial 100 /hpf Cells Urine Bacteria FEW /hpf Urine Mucus MOD /lpf Microscopic Urinalysis Comment CULT NOT INDICATED White Blood Count 9.9 TH/MM3 Red Blood Count 4.52 MIL/MM3 Hemoglobin 13.7 GM/DL Hematocrit 39.3 % Mean Corpuscular Volume 86.9 FL Mean Corpuscular Hemoglobin 30.3 PG Mean Corpuscular Hemoglobin 34.8 % Concent Red Cell Distribution Width 13.6 % Platelet Count 258 TH/MM3 Mean Platelet Volume 8.4 FL Neutrophils (%) (Auto) 57.4 % Lymphocytes (%) (Auto) 29.6 % Monocytes (%) (Auto) 10.4 % Eosinophils (%) (Auto) 1.8 % Basophils (%) (Auto) 0.8 % Neutrophils # (Auto) 5.7 TH/MM3 Lymphocytes # (Auto) 2.9 TH/MM3 Monocytes # (Auto) 1.0 TH/MM3 Eosinophils # (Auto) 0.2 TH/MM3 Basophils # (Auto) 0.1 TH/MM3 CBC Comment DIFF FINAL Differential Comment Sodium Level 136 MEQ/L Potassium Level 4.6 MEQ/L Chloride Level 101 MEQ/L Carbon Dioxide Level 27.6 MEQ/L Anion Gap 7 MEQ/L Blood Urea Nitrogen 8 MG/DL Creatinine 0.81 MG/DL Estimat Glomerular Filtration 84 ML/MIN Rate Random Glucose 83 MG/DL Calcium Level 8.7 MG/DL Total Bilirubin 0.5 MG/DL Aspartate Amino Transf 52 U/L (AST/SGOT) Alanine Aminotransferase 36 U/L (ALT/SGPT) Alkaline Phosphatase 126 U/L Total Protein 8.1 GM/DL Albumin 3.6 GM/DL Lipase 109 U/L [facility] Medical Decision Making Medical Screen Exam Complete: Yes Emergency Medical Condition: Yes Interpretation(s) EKG shows normal sinus rhythm normal axis and normal R-wave progression. No concerning ST-T changes. Intervals within normal limits. this normal EKG. Differential Diagnosis Pancreatitis, biliary stenosis, acute gastritis, gastroenteritis, acute abdomen unlikely. Narrative Course Patient was roomed in emergency department, her abdomen is fairly benign. Her labs are reassuring. She was given Toradol and Zofran and her symptoms have abated. Discussed with the patient that could consider doing a CAT scan however she's had multiple CAT scans recently would recommend a trial of symptomatic therapy. She was recommended to return the emergency department should her abdominal pain worsen have any fevers or any other concerning symptoms for reconsideration of CAT scan she is agreeable. Diagnosis Primary Impression: Abdominal pain Departure Forms: Tests/Procedures, Work Release Enter return to work date: February 24, 2017 Scripts No Active Prescriptions or Reported Meds Disposition: 01 DISCHARGE HOME Condition: Stable Yunier Lynn MD February 23, 2017 21:32
[2017-02-23 21:45] LABS: BACTERIA, URINE FEW /hpf; BLOOD, URINE NEG (NEG); COMMENT (UR) CULT NOT INDICATED; CULTURE IF INDICATED CULT NOT INDICATED; GLUCOSE,URINE NEG (NEG); KETONE, URINE NEG (NEG); MUCUS URINE MOD /lpf (OCC); NITRITE,URINE NEG (NEG); PH, URINE 7.5 (5.0-8.5); SQUAMOUS EPITHELIAL CELL URINE 100 /hpf (0-5); URINE COLOR YELLOW (YELLW/STRAW)
[2017-02-23 22:01] LABS: AUTOMATED NEUTROPHIL # 5.7 TH/MM3 (1.8-7.7); BASOPHIL # 0.1 TH/MM3 (0-0.2); BASOPHIL % 0.8 % (0.0-2.0); EOSINOPHIL # 0.2 TH/MM3 (0-0.4); EOSINOPHIL % 1.8 % (0.0-4.0); HEMATOCRIT 39.3 % (35.0-46.0); HEMO FLAGS DIFF FINAL; LYMPH % 29.6 % (9.0-44.0); LYMPHOCYTE # 2.9 TH/MM3 (1.0-4.8); MEAN CELL VOLUME 86.9 FL (80.0-100.0); MEAN CORPUSCULAR HEMOGLOBIN 30.3 PG (27.0-34.0); MEAN CORPUSCULAR HGB CONC 34.8 % (32.0-36.0); MONO % 10.4 % (0.0-8.0); NEUT % 57.4 % (16.0-70.0); PLATELET COUNT 258 TH/MM3 (150-450); RED BLOOD COUNT 4.52 MIL/MM3 (4.00-5.30); RED CELL DISTRIBUTION WIDTH 13.6 % (11.6-17.2); WHITE BLOOD COUNT 9.9 TH/MM3 (4.0-11.0)
[2017-02-23 22:34] LABS: ANION GAP 7 MEQ/L (5-15); AST (GOT) 52 U/L (15-37); BICARBONATE 27.6 MEQ/L (21.0-32.0); BLOOD UREA NITROGEN 8 MG/DL (7-18); CHLORIDE 101 MEQ/L (98-107); GLOMERULAR FILTRATION RATE 84 ML/MIN (>89); SODIUM (NA) 136 MEQ/L (136-145)
[2017-02-23 22:35] LABS: POTASSIUM 4.6 MEQ/L (3.5-5.1)
[2017-02-23 22:37] LABS: ALKALINE PHOSPHATASE 126 U/L (45-117); ALT (GPT) 36 U/L (10-53); TOTAL BILIRUBIN ADULT 0.5 MG/DL (0.2-1.0)
[2017-02-23 23:28] VITALS: BP 97/53; PULSE 79; RESP 16; O2SAT 97
--- NOTE | 2017-02-24 17:13 | EKG ---
Date Performed: 02/23/2017 Time Performed: 22:07:06 PTAGE: 27 years EKG: Sinus rhythm NORMAL ECG NO PREVIOUS TRACING DOCTOR: Zaki Silva Interpretating Date/Time 02/24/2017 17:11:18
== END 2017-02-23 23:32 | disposition home or self-care (01) ==
LOC: NEPD 20:40
DX: R10.9 Unspecified abdominal pain (principal); F17.210 Nicotine dependence, cigarettes, uncomplicated; F41.8 Other specified anxiety disorders
CPT/HCPCS: 80053; 81001; 83690; 84703; 85025; 93005; 96374; 96375; 99284; J1885; J2405; J7030

== ENCOUNTER 2017-03-08 16:55 | Emergency (ER) | payer BC ==
[~2017-03-08] VITALS: Ht 167.6 cm; Wt 75.0 kg
[2017-03-08 16:57] VITALS: BP 126/66; PULSE 74; RESP 15; TEMP 98.4; O2SAT 99
[2017-03-08 17:41] LABS: AUTOMATED NEUTROPHIL # 8.7 TH/MM3 (1.8-7.7); BASOPHIL # 0.1 TH/MM3 (0-0.2); BASOPHIL % 0.6 % (0.0-2.0); EOSINOPHIL # 0.1 TH/MM3 (0-0.4); EOSINOPHIL % 0.5 % (0.0-4.0); HEMATOCRIT 35.6 % (35.0-46.0); HEMO FLAGS DIFF FINAL; LYMPHOCYTE # 2.2 TH/MM3 (1.0-4.8); MEAN CELL VOLUME 86.2 FL (80.0-100.0); MEAN CORPUSCULAR HEMOGLOBIN 30.2 PG (27.0-34.0); MEAN CORPUSCULAR HGB CONC 35.1 % (32.0-36.0); MONO % 4.1 % (0.0-8.0); NEUT % 75.8 % (16.0-70.0); PLATELET COUNT 287 TH/MM3 (150-450); RED BLOOD COUNT 4.13 MIL/MM3 (4.00-5.30); RED CELL DISTRIBUTION WIDTH 13.3 % (11.6-17.2); WHITE BLOOD COUNT 11.5 TH/MM3 (4.0-11.0)
[2017-03-08 17:50] LABS: BACTERIA, URINE RARE /hpf; BLOOD, URINE NEG (NEG); GLUCOSE,URINE NEG (NEG); KETONE, URINE NEG (NEG); MUCUS URINE FEW /lpf (OCC); NITRITE,URINE NEG (NEG); PH, URINE 7.5 (5.0-8.5); SQUAMOUS EPITHELIAL CELL URINE 3 /hpf (0-5); URINE COLOR YELLOW (YELLW/STRAW)
[2017-03-08 17:53] LABS: COMMENT (UR) CULT NOT INDICATED; CULTURE IF INDICATED CULT NOT INDICATED
[2017-03-08 18:00] LABS: ALT (GPT) 27 U/L (10-53)
[2017-03-08 18:02] LABS: ALKALINE PHOSPHATASE 155 U/L (45-117); TOTAL BILIRUBIN ADULT 0.8 MG/DL (0.2-1.0)
[2017-03-08 18:06] VITALS: BP 109/57; PULSE 90; RESP 16; O2SAT 100
[2017-03-08 18:07] LABS: ANION GAP 6 MEQ/L (5-15); AST (GOT) 20 U/L (15-37); BICARBONATE 27.6 MEQ/L (21.0-32.0); BLOOD UREA NITROGEN 7 MG/DL (7-18); CHLORIDE 101 MEQ/L (98-107); GLOMERULAR FILTRATION RATE 76 ML/MIN (>89); POTASSIUM 3.9 MEQ/L (3.5-5.1); SODIUM (NA) 135 MEQ/L (136-145)
[2017-03-08] MEDS ORDERED: SODIUM CHLOR 0.9% 1000 ML INJ 1,000 ML IV SCH (18:09)
[2017-03-08] MEDS ORDERED: ONDANSETRON HCL 4 MG/2 ML VIAL IVP ONE (18:15)
[2017-03-08] MEDS ORDERED: ALUMINUM/MAGNESIUM/SIMETH 30 ML CUP PO ONE (18:15)
[2017-03-08] MEDS ORDERED: SODIUM CHLORIDE 0.9% FLUSH 10 ML FLUSH IV FLUSH PRN (18:15)
[2017-03-08] MEDS ORDERED: FAMOTIDINE 20 MG/2 ML VIAL IV PUSH ONE (18:15)
[2017-03-08] MEDS ORDERED: LIDOCAINE VISCOUS 2% SOLN 15 ML UDC PO ONE (18:15)
--- NOTE | 2017-03-08 18:16 | PD ---
HPI Chief Complaint: GI Complaint Time Seen by Provider: 18:10 Travel History International Travel<30 days: No Contact w/Intl Traveler<30days: No Traveled to known affect area: No History of Present Illness HPI 27-year-old female presents to the emergency department for evaluation of epigastric abdominal pain, nausea and vomiting for one day. The patient states that she had her gallbladder removed 3-4 months ago. States that since then she is had a few episodes of epigastric and right upper quadrant pain. States that today she is having epigastric pain that is a constant burning and sharp stabbing pain. States that she has associated nausea and nonbloody nonbilious emesis, about 6-7 episodes today. States that her symptoms are aggravated with eating. Denies any alleviating factors. Denies any fever, chills, chest pain, shortness of breath, dysuria, hematuria, diarrhea, constipation. Denies . She has tried ibuprofen with minimal improvement of symptoms. Patient states that she made an appointment with a assistant elementary teacher for Tuesday of this week. No other complaints. PFSH Past Medical History Anxiety: Yes Depression: Yes Diminished Hearing: No Kidney Stones: Yes Reproductive: No ?: Not LMP: 02/27/17 : 2 Past Surgical History Cholecystectomy: Yes Genitourinary Surgery: Yes (kidney stones, ) Tonsillectomy: Yes Other Surgery: Yes (2 abortions) Social History Alcohol Use: No Tobacco Use: Yes (1/2 ppd) Substance Use: No Allergies-Medications (Allergen,Severity, Reaction): Coded Allergies: No Known Allergies (Unverified , 03/08/17) Reported Meds & Prescriptions Reported Meds & Active Scripts Active Ranitidine (Ranitidine HCl) 150 Mg Tab 150 Mg PO BID 14 Days Zofran (Ondansetron HCl) 4 Mg Tab 4 Mg PO Q6HR PRN Review of Systems Except as stated in HPI: all other systems reviewed are Neg Physical Exam Narrative GENERAL: Well-nourished and well-developed pleasant female patient in no acute distress who is nontoxic appearing. SKIN: Warm and dry. HEAD: Normocephalic and atraumatic. EYES: No injection, drainage, or hyphema noted. PERRLA. EOMI. ENT: No nasal drainage noted. Oropharynx is clear. NECK: Supple and the trachea is midline. CARDIOVASCULAR: Regular rate and rhythm. RESPIRATORY: Breath sounds are equal bilaterally with no accessory muscle use, wheezing, rhonchi, or crackles. GASTROINTESTINAL: Epigastric tenderness to palpation. No rebound tenderness or guarding. Abdomen is soft and nondistended. MUSCULOSKELETAL: No obvious deformities, swelling, cyanosis, or ecchymosis is present throughout the upper and lower extremities. Patient has full range of motion without any signs of neurovascular compromise. NEUROLOGICAL: Awake, alert, and oriented. Normal speech and gait. Cranial nerves are grossly intact. Data Data Last Documented VS Vital Signs Date Time Temp Pulse Resp B/P Pulse Ox O2 Delivery O2 Flow Rate FiO2 03/08/17 18:06 Room Air 03/08/17 18:06 90 16 109/57 100 03/08/17 16:57 98.4 Orders Complete Blood Count With Diff (03/08/17 17:10) Comprehensive Metabolic Panel (03/08/17 17:10) Urinalysis - C+S If Indicated (03/08/17 17:10) Ed Urine Pregnancytest Poc (03/08/17 17:10) Iv Access Insert/Monitor (03/08/17 17:10) Oxygen Administration (03/08/17 17:10) Oximetry (03/08/17 17:10) Lipase (03/08/17 17:10) Ondansetron Inj (Zofran Inj) (03/08/17 18:15) Sodium Chlor 0.9% 1000 Ml Inj (Ns 1000 M (03/08/17 18:09) Sodium Chloride 0.9% Flush (Ns Flush) (03/08/17 18:15) Famotidine Inj (Pepcid Inj) (03/08/17 18:15) Al-Mag Hy-Si 40-40-4 Mg/Ml Liq (Mag-Al P (03/08/17 18:15) Lidocaine 2% Viscous (Xylocaine 2% Visco (03/08/17 18:15) Labs Laboratory Tests Test 03/08/17 03/08/17 17:20 17:26 Urine Color YELLOW Urine Turbidity CLEAR Urine pH 7.5 Urine Specific [place] 1.027 Urine Protein 30 mg/dL Urine Glucose (UA) NEG mg/dL Urine Ketones NEG mg/dL Urine Occult Blood NEG Urine Nitrite NEG Urine Bilirubin NEG Urine Urobilinogen 2.0 MG/DL Urine Leukocyte Esterase NEG Urine RBC 2 /hpf Urine WBC 1 /hpf Urine Squamous Epithelial 3 /hpf Cells Urine Bacteria RARE /hpf Urine Mucus FEW /lpf Microscopic Urinalysis Comment CULT NOT INDICATED White Blood Count 11.5 TH/MM3 Red Blood Count 4.13 MIL/MM3 Hemoglobin 12.5 GM/DL Hematocrit 35.6 % Mean Corpuscular Volume 86.2 FL Mean Corpuscular Hemoglobin 30.2 PG Mean Corpuscular Hemoglobin 35.1 % Concent Red Cell Distribution Width 13.3 % Platelet Count 287 TH/MM3 Mean Platelet Volume 8.3 FL Neutrophils (%) (Auto) 75.8 % Lymphocytes (%) (Auto) 19.0 % Monocytes (%) (Auto) 4.1 % Eosinophils (%) (Auto) 0.5 % Basophils (%) (Auto) 0.6 % Neutrophils # (Auto) 8.7 TH/MM3 Lymphocytes # (Auto) 2.2 TH/MM3 Monocytes # (Auto) 0.5 TH/MM3 Eosinophils # (Auto) 0.1 TH/MM3 Basophils # (Auto) 0.1 TH/MM3 CBC Comment DIFF FINAL Differential Comment Sodium Level 135 MEQ/L Potassium Level 3.9 MEQ/L Chloride Level 101 MEQ/L Carbon Dioxide Level 27.6 MEQ/L Anion Gap 6 MEQ/L Blood Urea Nitrogen 7 MG/DL Creatinine 0.88 MG/DL Estimat Glomerular Filtration 76 ML/MIN Rate Random Glucose 101 MG/DL Calcium Level 9.5 MG/DL Total Bilirubin 0.8 MG/DL Aspartate Amino Transf 20 U/L (AST/SGOT) Alanine Aminotransferase 27 U/L (ALT/SGPT) Alkaline Phosphatase 155 U/L Total Protein 8.6 GM/DL Albumin 3.9 GM/DL Lipase 100 U/L [facility] Medical Decision Making Medical Screen Exam Complete: Yes Emergency Medical Condition: Yes Differential Diagnosis Gastritis versus peptic ulcer disease versus GERD versus hepatobiliary pathology Narrative Course 27-year-old female presents to the emergency department for evaluation of epigastric abdominal pain with nausea and vomiting for one day. Patient is afebrile, vital signs are stable. She does have epigastric tenderness to palpation but otherwise abdominal examination is benign. IV access is obtained. Labs were drawn and sent. ED urine test is negative. Patient is administered IV fluids, Zofran, Pepcid and GI cocktail. CBC shows slightly elevated white blood count 11.5, otherwise unremarkable. CMP shows slightly elevated alkaline phosphatase, this does appear lower than previous values. Otherwise unremarkable. Urinalysis shows 30 protein, rare bacteria and few mucus. Labs are unremarkable. Patient has remained stable while here in the emergency department. History and physical exam findings are most consistent with gastritis or peptic ulcer disease. I don't see any indication to perform emergent CT imaging of the abdomen. I discussed this with the patient as well as all laboratory findings. Patient is advised to keep her appointment with her assistant elementary teacher for later this week. Patient verbalizes understanding and agreement with treatment plan. Diagnosis Primary Impression: Abdominal pain Qualified Code: R10.13 - Epigastric pain Referrals: [facility]iler Patient Instructions: Abdominal Pain (ED), General Instructions Departure Forms: Tests/Procedures, Work Release Enter return to work date: Mar 10, 2017 Additional Instructions: We did labs and they are all unremarkable. Take medications as prescribed. Follow-up with your Primary Care Physician and assistant elementary teacher. Return to the ED for any acute worsening of symptoms. Med/Other Pt SpecificInfo: Prescription(s) given Scripts Ranitidine 150 Mg [id number] Mg PO BID 14 Days Ref 0 Prov:Jah Navarro MD 03/08/17 Ondansetron (Zofran)4 Mg Tab4 Mg PO Q6HR PRN (NAUSEA OR VOMITING) #12 TAB Ref 0 Prov:Jah Navarro MD 03/08/17 Disposition: 01 DISCHARGE HOME Condition: Stable Zulma Walsh Mar 08, 2017 18:16
[2017-03-08] MEDS ORDERED: ZOFR4TAB PO (19:02)
[2017-03-08] MEDS ORDERED: RANI150T PO (19:02)
[2017-03-08 19:28] VITALS: BP 111/66
== END 2017-03-08 19:44 | disposition home or self-care (01) ==
LOC: NEPC 16:55
DX: R10.13 Epigastric pain (principal); Z87.442 Personal history of urinary calculi; F17.210 Nicotine dependence, cigarettes, uncomplicated
CPT/HCPCS: 80053; 81001; 83690; 84703; 85025; 96374; 96375; 99284; J2405; J7030

== ENCOUNTER 2017-03-15 02:06 | Emergency (ER) | payer BC, OTHER ==
[~2017-03-15] VITALS: Ht 167.6 cm; Wt 70.0 kg
[~2017-03-15 02:06] MED LIST changes: -COLA100C3 PO; -FERR325T PO; -PERC5TAB12 PO; +RANI150T PO; -SERO300T PO; +ZOFR4TAB PO
[2017-03-15 02:09] VITALS: BP 117/70; PULSE 98; RESP 18; TEMP 97.7; O2SAT 100
[2017-03-15] MEDS ORDERED: SERO300T PO (02:27)
[2017-03-15] MEDS ORDERED: ACETAMINOPHEN/HYDROcodone 325 MG/5 MG TAB PO ONE (02:45)
[2017-03-15] MEDS ORDERED: AMOXICILLIN/CLAVULANATE K 875 MG TAB PO ONE (02:45)
--- NOTE | 2017-03-15 03:13 | RADRPT ---
EXAM DATE/TIME: 03/15/2017 03:03 [facility] COMPARISON: No previous studies available for comparison. INDICATIONS : Dog bite laceration to base of 3rd digit. MEDICAL HISTORY : None. SURGICAL HISTORY : None. ENCOUNTER: Initial ACUITY: 1 day PAIN SCORE: 5/10 LOCATION: Right hand FINDINGS: No definite fractures, or dislocations are identified. No definite lytic or sclerotic lesion is seen . There is no evidence for a radiopaque foreign body for technique. CONCLUSION: Unremarkable study. Terry Restrepo MD on March 15, 2017 at 3:11 Board Certified Radiologist. This report was verified electronically.
[2017-03-15] MEDS ORDERED: AUGM875T3 PO (03:31)
--- NOTE | 2017-03-15 03:32 | PD ---
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 Time of injury was about 2 and half hours prior to ER evaluation. He was bit in the right hand. She's had constant pain since then. The dog was vaccinated against rabies. The pain is worse with palpation. She cleaned the wound after the bite. PFSH Past Medical History Anxiety: Yes Depression: Yes Diminished Hearing: No Kidney Stones: Yes Reproductive: No Tetanus Vaccination: < 5 Years Influenza Vaccination: No ?: Not LMP: 03/03/2017 : 3 Para: 0 : 3 Past Surgical History Cholecystectomy: Yes (11/2016) Genitourinary Surgery: Yes (kidney stones, ) Tonsillectomy: Yes Other Surgery: Yes (2 abortions) Social History Alcohol Use: No Tobacco Use: Yes (1-2 pk per day) Substance Use: No Allergies-Medications (Allergen,Severity, Reaction): Coded Allergies: No Known Allergies (Unverified , 03/15/17) Reported Meds & Prescriptions Reported Meds & Active Scripts Active Ranitidine (Ranitidine HCl) 150 Mg Tab 150 Mg PO BID 14 Days Zofran (Ondansetron HCl) 4 Mg Tab 4 Mg PO Q6HR PRN Reported Seroquel (Quetiapine Fumarate) 300 Mg Tab 300 Mg PO HS Review of Systems Except as stated in HPI: all other systems reviewed are Neg Physical Exam Narrative GENERAL: 27-year-old female well-nourished well-developed no acute distress SKIN: Focused skin assessment warm/dry. About 1/2 cm somewhat curvilinear laceration overlying the corner aspect of the third to carpophalangeal articulation. Underlying flexor tendons are intact. HEAD: Atraumatic. Normocephalic. EYES: Pupils equal and round. No scleral icterus. No injection or drainage. ENT: No nasal bleeding or discharge. Mucous membranes pink and moist. NECK: Trachea midline. No JVD. CARDIOVASCULAR: Regular rate and rhythm. No murmur appreciated. RESPIRATORY: No accessory muscle use. Clear to auscultation. Breath sounds equal bilaterally. GASTROINTESTINAL: Abdomen soft, non-tender, nondistended. Hepatic and splenic margins not palpable. MUSCULOSKELETAL: No obvious deformities. No clubbing. No cyanosis. No edema. Handgrip intact bilaterally NEUROLOGICAL: Awake and alert. No obvious cranial nerve deficits. Motor grossly within normal limits. Normal speech. PSYCHIATRIC: Appropriate mood and affect; insight and judgment normal. Data Data Last Documented VS Vital Signs Date Time Temp Pulse Resp B/P Pulse Ox O2 Delivery O2 Flow Rate FiO2 03/15/17 02:28 20 03/15/17 02:09 97.7 98 117/70 100 Room Air Vital signs reviewed Orders Wound Care (03/15/17 02:42) Amoxicil-Clavulanate (Augmentin) (03/15/17 02:45) Acetamin-Hydrocod 325-5 Mg ([place] 5-325 (03/15/17 02:45) Hand, Complete ([id number]) (03/15/17 02:48) Ice/Cold Pack (03/15/17 02:48) MDM Medical Decision Making Medical Screen Exam Complete: Yes Emergency Medical Condition: Yes Medical Record Reviewed: Yes Differential Diagnosis Foreign body, tendon injury, cellulitis Narrative Course Last 24 hours Impressions Hand X-Ray 03/15/17 0248 Signed Impressions: Service Date/Time: Wednesday, March 15, 2017 03:03 - CONCLUSION: Unremarkable study. Terry Restrepo MD The patient is resting comfortably and feels better, is alert and in no distress. The patients results and examination findings were discussed. The repeat examination is unremarkable and benign. The history, exam, diagnostic testing, and current condition do not suggest any significant pathology to warrant further testing, continued ED treatment, admission, or surgical evaluation at this point. The vital signs have been stable. The patient does not have uncontrollable pain, intractable vomiting, or other significant symptoms. The patient's condition is stable and appropriate for discharge. The patient will pursue further outpatient evaluation with a primary care physician or other designated or consulting physician as indicated in the discharge instructions. The patient expressed understanding and was agreeable with this plan. Diagnosis Primary Impression: Dog bite of right hand Qualified Code: S61.451A - Dog bite of right hand, initial encounter Referrals: Marnie Arora MD call for appointment RETURN TO ER IN 2 DAYS FOR WOUND CHECK 2 days Additional Instructions: You have a choice when it comes to health care, and we are glad that you chose [facility]. Hopefully, we have met your expectations on today's visit. You are welcome to return to [facility] at any time, as we are committed to meeting the health care needs of our community. RETURN TO ER IN TWO DAYS FOR WOUND CHECK. Med/Other Pt SpecificInfo: Prescription(s) given Scripts Amoxicillin-Clavulanate (Augmentin)875-125 Mg Tab1 Tab PO BID 14 Days Ref 0 Prov:Alexey Silva MD 03/15/17 Disposition: 01 DISCHARGE HOME Condition: Stable Alexey Silva MD Mar 15, 2017 03:32
== END 2017-03-15 04:37 | disposition home or self-care (01) ==
LOC: NEPE 02:06
DX: S61.451A Open bite of right hand, initial encounter (principal); F17.200 Nicotine dependence, unspecified, uncomplicated; Z87.442 Personal history of urinary calculi; Z86.59 Personal history of other mental and behavioral disorders; W54.0XXA Bitten by dog, initial encounter; Y99.0 Civilian activity done for income or pay
CPT/HCPCS: 73130; 99283

== ENCOUNTER 2017-05-03 20:01 | Emergency (ER) | payer BC, OTHER ==
[~2017-05-03] VITALS: Ht 172.7 cm; Wt 77.0 kg
[~2017-05-03 20:01] MED LIST changes: +AUGM875T3 PO; +SERO300T PO
[2017-05-03 20:04] VITALS: BP 122/65; PULSE 86; RESP 16; TEMP 98.3; O2SAT 97
[2017-05-03] MEDS ORDERED: PROM12.54 PO (20:51)
[2017-05-03] MEDS ORDERED: SERO100T PO ×2 (20:54→22:44)
[2017-05-03] MEDS ORDERED: SODIUM CHLOR 0.9% 1000 ML INJ 1,000 ML IV SCH (21:21)
[2017-05-03] MEDS ORDERED: FAMOTIDINE 20 MG/2 ML VIAL IV PUSH ONE (21:30)
[2017-05-03] MEDS ORDERED: MORPHINE SULFATE 4 MG/ML INJ IV PUSH ONE (21:30)
[2017-05-03] MEDS ORDERED: ALUMINUM/MAGNESIUM/SIMETH 30 ML CUP PO ONE (21:30)
[2017-05-03] MEDS ORDERED: ONDANSETRON HCL 4 MG/2 ML VIAL IVP ONE (21:30)
[2017-05-03] MEDS ORDERED: LIDOCAINE VISCOUS 2% SOLN 15 ML UDC PO ONE (21:30)
[2017-05-03] MEDS ORDERED: SODIUM CHLORIDE 0.9% FLUSH 10 ML FLUSH IV FLUSH PRN (21:30)
--- NOTE | 2017-05-03 21:40 | PD ---
HPI Chief Complaint: GI Complaint Time Seen by Provider: 21:10 Travel History International Travel<30 days: No Contact w/Intl Traveler<30days: No Traveled to known affect area: No History of Present Illness HPI The patient is a 27-year-old female who presents emergency department for nausea, vomiting, and epigastric abdominal pain. The patient has a history of similar symptoms over the last several months. The patient had her gallbladder removed several months ago and then subsequently underwent EGD. The patient states the EGD revealed she had gastritis and was subsequently placed on Zantac and Phenergan. The patient cannot recall the name of her count team member, but does have an appointment next Tuesday to undergo further evaluation. The patient states when she had an endoscopy they noted undigested food in the stomach, she may have underlying gastroparesis. The patient normally takes Phenergan, however, ran out of her Phenergan several days ago. She is also requesting a medication refill for her Seroquel, she takes 300 mg at night and 150 mg during the day. She denies any lower abdominal pain, weight loss, fever, chills, or sweats. Symptoms are moderate, alleviated and passive Phenergan, possibly exacerbated by not having her Phenergan. Last menstrual cycle was 3 weeks ago, she denies . PFSH Past Medical History Anxiety: Yes Depression: Yes Diminished Hearing: No Kidney Stones: Yes Reproductive: No Schizophrenia: Yes Tetanus Vaccination: < 5 Years Influenza Vaccination: No ?: Not LMP: 04/12/17 : 3 Para: 0 : 3 Past Surgical History Cholecystectomy: Yes (11/2016) Genitourinary Surgery: Yes (kidney stones) Tonsillectomy: Yes Other Surgery: Yes (2 abortions) Social History Alcohol Use: No Tobacco Use: Yes (1 PPD) Substance Use: No Allergies-Medications (Allergen,Severity, Reaction): Coded Allergies: No Known Allergies (Unverified , 05/03/17) Reported Meds & Prescriptions Reported Meds & Active Scripts Active Ranitidine (Ranitidine HCl) 150 Mg Tab 150 Mg PO BID 14 Days Reported Seroquel (Quetiapine Fumarate) 100 Mg Tab 150 Mg PO DAILY Promethazine (Promethazine HCl) 12.5 Mg Tab 12.5 Mg PO Q6H PRN Seroquel (Quetiapine Fumarate) 300 Mg Tab 300 Mg PO HS Review of Systems Except as stated in HPI: all other systems reviewed are Neg General / Constitutional: No: Fever Cardiovascular: No: Chest Pain or Discomfort Respiratory: No: Shortness of Breath Gastrointestinal: Positive: Nausea, Vomiting, Abdominal Pain, No: Diarrhea Musculoskeletal: No: Weakness, Cramping Neurologic: No: Dizziness Physical Exam Narrative GENERAL: Awake, alert, nontoxic-appearing 27-year-old female who appears her stated age and is in no acute respiratory distress. SKIN: Focused skin assessment warm/dry. HEAD: Atraumatic. Normocephalic. EYES: Pupils equal and round. No scleral icterus. No injection or drainage. ENT: No nasal bleeding or discharge. Mucous membranes pink and moist. NECK: Trachea midline. No JVD. CARDIOVASCULAR: Regular rate and rhythm. No murmur appreciated. RESPIRATORY: No accessory muscle use. Clear to auscultation. Breath sounds equal bilaterally. GASTROINTESTINAL: Abdomen soft, mild epigastric tenderness, no rebound tenderness, guarding, or rigidity. MUSCULOSKELETAL: No obvious deformities. No clubbing. No cyanosis. No edema. NEUROLOGICAL: Awake and alert. No obvious cranial nerve deficits. Motor grossly within normal limits. Normal speech. PSYCHIATRIC: Appropriate mood and affect; insight and judgment normal. Data Data Last Documented VS Vital Signs Date Time Temp Pulse Resp B/P Pulse Ox O2 Delivery O2 Flow Rate FiO2 05/03/17 22:25 66 16 118/70 99 Room Air 05/03/17 20:04 98.3 Orders Complete Blood Count With Diff (05/03/17 21:21) Comprehensive Metabolic Panel (05/03/17 21:21) Lipase (05/03/17 21:21) Urinalysis - C+S If Indicated (05/03/17 21:21) Iv Access Insert/Monitor (05/03/17 21:21) Ecg Monitoring (05/03/17 21:21) Oximetry (05/03/17 21:21) Morphine Inj (Morphine Inj) (05/03/17 21:30) Ondansetron Inj (Zofran Inj) (05/03/17 21:30) Sodium Chlor 0.9% 1000 Ml Inj (Ns 1000 M (05/03/17 21:21) Sodium Chloride 0.9% Flush (Ns Flush) (8/1/17 21:30) Famotidine Inj (Pepcid Inj) (05/03/17 21:30) Al-Mag Hy-Si 40-40-4 Mg/Ml Liq (Mag-Al P (05/03/17 21:30) Lidocaine 2% Viscous (Xylocaine 2% Visco (05/03/17 21:30) Ed Urine Pregnancytest Poc (05/03/17 21:21) Potassium Chloride (Kcl) (05/03/17 22:45) Labs Laboratory Tests Test 05/03/17 05/03/17 21:32 21:39 Urine Color YELLOW Urine Turbidity HAZY Urine pH 6.0 Urine Specific [place] 1.032 Urine Protein 30 mg/dL Urine Glucose (UA) NEG mg/dL Urine Ketones TRACE mg/dL Urine Occult Blood TRACE Urine Nitrite NEG Urine Bilirubin NEG Urine Urobilinogen 4.0 MG/DL Urine Leukocyte Esterase TRACE Urine RBC 3 /hpf Urine WBC 4 /hpf Urine Squamous Epithelial 12 /hpf Cells Urine Bacteria OCC /hpf Urine Mucus MANY /lpf Microscopic Urinalysis Comment CULT NOT INDICATED White Blood Count 8.3 TH/MM3 Red Blood Count 4.89 MIL/MM3 Hemoglobin 15.4 GM/DL Hematocrit 43.4 % Mean Corpuscular Volume 88.7 FL Mean Corpuscular Hemoglobin 31.5 PG Mean Corpuscular Hemoglobin 35.5 % Concent Red Cell Distribution Width 12.9 % Platelet Count 296 TH/MM3 Mean Platelet Volume 8.8 FL Neutrophils (%) (Auto) 52.3 % Lymphocytes (%) (Auto) 35.0 % Monocytes (%) (Auto) 9.9 % Eosinophils (%) (Auto) 2.1 % Basophils (%) (Auto) 0.7 % Neutrophils # (Auto) 4.3 TH/MM3 Lymphocytes # (Auto) 2.9 TH/MM3 Monocytes # (Auto) 0.8 TH/MM3 Eosinophils # (Auto) 0.2 TH/MM3 Basophils # (Auto) 0.1 TH/MM3 CBC Comment DIFF FINAL Differential Comment Sodium Level 135 MEQ/L Potassium Level 3.1 MEQ/L Chloride Level 95 MEQ/L Carbon Dioxide Level 30.4 MEQ/L Anion Gap 10 MEQ/L Blood Urea Nitrogen 5 MG/DL Creatinine 0.99 MG/DL Estimat Glomerular Filtration 66 ML/MIN Rate Random Glucose 96 MG/DL Calcium Level 10.4 MG/DL Total Bilirubin 0.5 MG/DL Aspartate Amino Transf 34 U/L (AST/SGOT) Alanine Aminotransferase 53 U/L (ALT/SGPT) Alkaline Phosphatase 158 U/L Total Protein 9.5 GM/DL Albumin 4.5 GM/DL Lipase 95 U/L MDM Medical Decision Making Medical Screen Exam Complete: Yes Emergency Medical Condition: Yes Medical Record Reviewed: Yes Interpretation(s) Laboratory Tests Test 05/03/17 05/03/17 21:32 21:39 Urine Color YELLOW Urine Turbidity HAZY Urine pH 6.0 Urine Specific [place] 1.032 Urine Protein 30 mg/dL Urine Glucose (UA) NEG mg/dL Urine Ketones TRACE mg/dL Urine Occult Blood TRACE Urine Nitrite NEG Urine Bilirubin NEG Urine Urobilinogen 4.0 MG/DL Urine Leukocyte Esterase TRACE Urine RBC 3 /hpf Urine WBC 4 /hpf Urine Squamous Epithelial 12 /hpf Cells Urine Bacteria OCC /hpf Urine Mucus MANY /lpf Microscopic Urinalysis Comment CULT NOT INDICATED White Blood Count 8.3 TH/MM3 Red Blood Count 4.89 MIL/MM3 Hemoglobin 15.4 GM/DL Hematocrit 43.4 % Mean Corpuscular Volume 88.7 FL Mean Corpuscular Hemoglobin 31.5 PG Mean Corpuscular Hemoglobin 35.5 % Concent Red Cell Distribution Width 12.9 % Platelet Count 296 TH/MM3 Mean Platelet Volume 8.8 FL Neutrophils (%) (Auto) 52.3 % Lymphocytes (%) (Auto) 35.0 % Monocytes (%) (Auto) 9.9 % Eosinophils (%) (Auto) 2.1 % Basophils (%) (Auto) 0.7 % Neutrophils # (Auto) 4.3 TH/MM3 Lymphocytes # (Auto) 2.9 TH/MM3 Monocytes # (Auto) 0.8 TH/MM3 Eosinophils # (Auto) 0.2 TH/MM3 Basophils # (Auto) 0.1 TH/MM3 CBC Comment DIFF FINAL Differential Comment Sodium Level 135 MEQ/L Potassium Level 3.1 MEQ/L Chloride Level 95 MEQ/L Carbon Dioxide Level 30.4 MEQ/L Anion Gap 10 MEQ/L Blood Urea Nitrogen 5 MG/DL Creatinine 0.99 MG/DL Estimat Glomerular Filtration 66 ML/MIN Rate Random Glucose 96 MG/DL Calcium Level 10.4 MG/DL Total Bilirubin 0.5 MG/DL Aspartate Amino Transf 34 U/L (AST/SGOT) Alanine Aminotransferase 53 U/L (ALT/SGPT) Alkaline Phosphatase 158 U/L Total Protein 9.5 GM/DL Albumin 4.5 GM/DL Lipase 95 U/L Differential Diagnosis Differential diagnosis includes gastritis, peptic ulcer disease, pancreatitis, gastroparesis, retained biliary stone, esophagitis. Narrative Course IV was established, labs were drawn and sent, and the patient was placed on cardiac telemetry monitoring and continuous pulse oximetry monitoring. The patient was administered morphine, Zofran, Zantac, GI cocktail, and IV fluids. UA was sent to lab and bedside UA test was obtained, test was negative. Patient's hemoglobin is slightly elevated with trace ketones and UA consistent with dehydration. Therefore, patient was administered a second liter of IV fluids. Potassium is low at 3.1, this was replaced orally. Otherwise, lipase and LFTs are unremarkable. The patient will be discharged home with Phenergan and I will refill her Seroquel prescription. She is advised to follow-up with her count team member. Return if symptoms worsen or progress. Diagnosis Primary Impression: Abdominal pain Qualified Code: R10.13 - Epigastric pain Additional Impressions: Gastritis Qualified Code: K29.70 - Gastritis, presence of bleeding unspecified, unspecified chronicity, unspecified gastritis type Medication refill Patient Instructions: General Instructions Additional Instructions: Please provide the patient a copy of her labs at discharge. Follow-up with your primary physician and count team member. Medications as directed. Return if symptoms worsen or progress. Med/Other Pt SpecificInfo: Prescription(s) given Scripts Quetiapine (Seroquel)300 Mg [id number] Mg PO HS #30 TAB Ref 0 Prov:Davi Titus MD 05/03/17 Quetiapine (Seroquel)100 Mg [id number] Mg PO DAILY #30 TAB Ref 0 Prov:Davi Titus MD 05/03/17 Quetiapine (Seroquel)50 Mg Tab50 Mg PO DAILY #30 TAB Ref 0 Prov:Davi Titus MD 05/03/17 Promethazine (Phenergan)25 Mg [id number] Mg PO Q6H PRN (NAUSEA OR VOMITING) #20 TAB Ref 0 Prov:Davi Titus MD 05/03/17 Disposition: DISCHARGE HOME Condition: Stable Davi Titus MD May 03, 2017 21:40
[2017-05-03 21:52] VITALS: RESP 16; O2SAT 98
[2017-05-03 22:11] LABS: AUTOMATED NEUTROPHIL # 4.3 TH/MM3 (1.8-7.7); BASOPHIL # 0.1 TH/MM3 (0-0.2); BASOPHIL % 0.7 % (0.0-2.0); EOSINOPHIL # 0.2 TH/MM3 (0-0.4); EOSINOPHIL % 2.1 % (0.0-4.0); HEMATOCRIT 43.4 % (35.0-46.0); HEMO FLAGS DIFF FINAL; LYMPHOCYTE # 2.9 TH/MM3 (1.0-4.8); MEAN CELL VOLUME 88.7 FL (80.0-100.0); MEAN CORPUSCULAR HEMOGLOBIN 31.5 PG (27.0-34.0); MEAN CORPUSCULAR HGB CONC 35.5 % (32.0-36.0); MONO % 9.9 % (0.0-8.0); NEUT % 52.3 % (16.0-70.0); PLATELET COUNT 296 TH/MM3 (150-450); RED BLOOD COUNT 4.89 MIL/MM3 (4.00-5.30); RED CELL DISTRIBUTION WIDTH 12.9 % (11.6-17.2); WHITE BLOOD COUNT 8.3 TH/MM3 (4.0-11.0)
[2017-05-03 22:25] VITALS: BP 118/70; PULSE 66; RESP 16; O2SAT 99
[2017-05-03 22:25] LABS: BACTERIA, URINE OCC /hpf; BLOOD, URINE TRACE (NEG); COMMENT (UR) CULT NOT INDICATED; CULTURE IF INDICATED CULT NOT INDICATED; GLUCOSE,URINE NEG (NEG); KETONE, URINE TRACE mg/dL (NEG); MUCUS URINE MANY /lpf (OCC); NITRITE,URINE NEG (NEG); SQUAMOUS EPITHELIAL CELL URINE 12 /hpf (0-5); URINE COLOR YELLOW (YELLW/STRAW)
[2017-05-03 22:33] LABS: ANION GAP 10 MEQ/L (5-15); AST (GOT) 34 U/L (15-37); BICARBONATE 30.4 MEQ/L (21.0-32.0); BLOOD UREA NITROGEN 5 MG/DL (7-18); CHLORIDE 95 MEQ/L (98-107); GLOMERULAR FILTRATION RATE 66 ML/MIN (>89); POTASSIUM 3.1 MEQ/L (3.5-5.1); SODIUM (NA) 135 MEQ/L (136-145)
[2017-05-03 22:35] LABS: ALT (GPT) 53 U/L (10-53)
[2017-05-03 22:37] LABS: ALKALINE PHOSPHATASE 158 U/L (45-117); TOTAL BILIRUBIN ADULT 0.5 MG/DL (0.2-1.0)
[2017-05-03] MEDS ORDERED: SERO50TA PO (22:44)
[2017-05-03] MEDS ORDERED: SERO300T PO (22:44)
[2017-05-03] MEDS ORDERED: PROM25TA10 PO (22:44)
[2017-05-03] MEDS ORDERED: POTASSIUM CHLORIDE 10 MEQ CAP PO ONE (22:45)
[2017-05-03] MEDS ORDERED: SODIUM CHLOR 0.9% 1000 ML INJ 1,000 ML IV ONE (22:45)
== END 2017-05-03 23:48 | disposition home or self-care (01) ==
LOC: NEPD 20:01
DX: K29.70 Gastritis, unspecified, without bleeding (principal); F17.200 Nicotine dependence, unspecified, uncomplicated; Z76.0 Encounter for issue of repeat prescription
CPT/HCPCS: 80053; 81001; 83690; 84703; 85025; 96361; 96374; 96375; 99284; J2270; J2405; J7030

== ENCOUNTER 2017-07-25 21:45 | Inpatient (IN) | payer BC ==
[~2017-07-25] VITALS: Ht 167.6 cm; Wt 62.0 kg
[~2017-07-25 21:45] MED LIST changes: -AUGM875T3 PO; +PROM12.54 PO; +PROM25TA10 PO; +SERO100T PO; +SERO50TA PO; -ZOFR4TAB PO
[2017-07-25 21:47] VITALS: BP 119/69; PULSE 98; RESP 16; TEMP 98.7; O2SAT 98
--- NOTE | 2017-07-25 23:17 | PD ---
HPI Chief Complaint: Flank/Kidney Pain Time Seen by Provider: 23:17 Travel History International Travel<30 days: No Contact w/Intl Traveler<30days: No Traveled to known affect area: No History of Present Illness HPI 27-year-old female came to the emergency room with history of right flank pain that has been there for 2 days and progressively worsening. Patient says there is associated nausea and vomiting. She is also been getting fever and chills. Patient noticed blood in her urine initially and now the blood and getting less but the pain has increased. Patient had history of kidney stones many years ago. She also has history of UTI in the past. Patient appears to be uncomfortable. Her vital signs were relatively stable. She is otherwise a healthy person. ON LICENSE OF [facility] Past Medical History Narrative Medical List of her past medical, surgical, social and family history is reviewed from the nursing note. Anxiety: Yes Depression: Yes Diminished Hearing: No Kidney Stones: Yes Reproductive: No Schizophrenia: Yes : 3 Para: 0 : 3 Past Surgical History Cholecystectomy: Yes (11/2016) Genitourinary Surgery: Yes (kidney stones) Tonsillectomy: Yes Other Surgery: Yes (2 abortions) Social History Alcohol Use: No Tobacco Use: Yes (1 PPD) Substance Use: No Allergies-Medications (Allergen,Severity, Reaction): Coded Allergies: No Known Allergies (Unverified , 07/25/17) Comments List of her allergies reviewed from the nursing note. Reported Meds & Prescriptions Reported Meds & Active Scripts Active Seroquel (Quetiapine Fumarate) 300 Mg Tab 300 Mg PO HS Seroquel (Quetiapine Fumarate) 100 Mg Tab 100 Mg PO DAILY Seroquel (Quetiapine Fumarate) 50 Mg Tab 50 Mg PO DAILY Phenergan (Promethazine HCl) 25 Mg Tablet 25 Mg PO Q6H PRN Ranitidine (Ranitidine HCl) 150 Mg Tab 150 Mg PO BID 14 Days Reported Seroquel (Quetiapine Fumarate) 100 Mg Tab 150 Mg PO DAILY Promethazine (Promethazine HCl) 12.5 Mg Tab 12.5 Mg PO Q6H PRN Seroquel (Quetiapine Fumarate) 300 Mg Tab 300 Mg PO HS Narrative Medication List of her home medications reviewed from the nursing note. Review of Systems Except as stated in HPI: all other systems reviewed are Neg General / Constitutional: Positive: Fever, Chills Genitourinary: Positive: Hematuria, Flank Pain Physical Exam Narrative GENERAL: Awake, alert, moderate distress, SKIN: Focused skin assessment warm/dry. HEAD: Atraumatic. Normocephalic. EYES: Pupils equal and round. No scleral icterus. No injection or drainage. ENT: No nasal bleeding or discharge. Mucous membranes pink and moist. NECK: Trachea midline. No JVD. CARDIOVASCULAR: Regular rate and rhythm. No murmur appreciated. RESPIRATORY: No accessory muscle use. Clear to auscultation. Breath sounds equal bilaterally. GASTROINTESTINAL: Abdomen soft, non-tender, nondistended. Hepatic and splenic margins not palpable. Right flank tenderness MUSCULOSKELETAL: No obvious deformities. No clubbing. No cyanosis. No edema. NEUROLOGICAL: Awake and alert. No obvious cranial nerve deficits. Motor grossly within normal limits. Normal speech. PSYCHIATRIC: Appropriate mood and affect; insight and judgment normal. Data Data Last Documented VS Vital Signs Date Time Temp Pulse Resp B/P (MAP) Pulse Ox O2 Delivery O2 Flow Rate FiO2 07/25/17 21:47 98.7 98 16 119/69 (86) 98 Room Air Orders Orders Urinalysis - C+S If Indicated (07/25/17 22:58) Ed Urine Pregnancytest Poc (07/25/17 22:58) Complete Blood Count With Diff (07/25/17 22:58) Comprehensive Metabolic Panel (07/25/17 22:58) Ct Abd/Pel W/O Iv Contrast (07/25/17 23:20) Ketorolac Inj (Toradol Inj) (07/25/17 23:30) Morphine Inj (Morphine Inj) (07/25/17 23:30) Sodium Chlor 0.9% 1000 Ml Inj (Ns 1000 M (07/25/17 23:20) Ondansetron Inj (Zofran Inj) (07/25/17 23:30) Urine Culture (07/25/17 23:20) Blood Culture (07/25/17 23:44) Ceftriaxone Inj (Rocephin Inj) (07/25/17 23:45) Potassium Chloride Eff (K-Lyte Cl Eff) (07/26/17 00:00) Labs Laboratory Tests Test 07/25/17 23:20 White Blood Count 9.8 TH/MM3 Red Blood Count 4.25 MIL/MM3 Hemoglobin 12.6 GM/DL Hematocrit 36.4 % Mean Corpuscular Volume 85.7 FL Mean Corpuscular Hemoglobin 29.7 PG Mean Corpuscular Hemoglobin Concent 34.7 % Red Cell Distribution Width 14.1 % Platelet Count 286 TH/MM3 Mean Platelet Volume 7.9 FL Neutrophils (%) (Auto) 49.0 % Lymphocytes (%) (Auto) 42.0 % Monocytes (%) (Auto) 6.4 % Eosinophils (%) (Auto) 1.9 % Basophils (%) (Auto) 0.7 % Neutrophils # (Auto) 4.8 TH/MM3 Lymphocytes # (Auto) 4.1 TH/MM3 Monocytes # (Auto) 0.6 TH/MM3 Eosinophils # (Auto) 0.2 TH/MM3 Basophils # (Auto) 0.1 TH/MM3 CBC Comment DIFF FINAL Differential Comment Urine Color YELLOW Urine Turbidity HAZY Urine pH 5.5 Urine Specific [place] 1.027 Urine Protein 30 mg/dL Urine Glucose (UA) NEG mg/dL Urine Ketones NEG mg/dL Urine Occult Blood MOD Urine Nitrite POS Urine Bilirubin NEG Urine Urobilinogen LESS THAN 2.0 MG/DL Urine Leukocyte Esterase LARGE Urine RBC 16 /hpf Urine WBC 50 /hpf Urine Squamous Epithelial Cells 1 /hpf Urine Amorphous Sediment RARE Urine Bacteria MANY /hpf Urine Mucus MANY /lpf Microscopic Urinalysis Comment CULTURE INDICATED Blood Urea Nitrogen 8 MG/DL Creatinine 0.97 MG/DL Random Glucose 83 MG/DL Total Protein 8.4 GM/DL Albumin 3.9 GM/DL Calcium Level 9.3 MG/DL Alkaline Phosphatase 250 U/L Aspartate Amino Transf (AST/SGOT) 23 U/L Alanine Aminotransferase (ALT/SGPT) 40 U/L Total Bilirubin 0.3 MG/DL Sodium Level 139 MEQ/L Potassium Level 3.2 MEQ/L Chloride Level 103 MEQ/L Carbon Dioxide Level 29.1 MEQ/L Anion Gap 7 MEQ/L Estimat Glomerular Filtration Rate 68 ML/MIN [facility] Medical Decision Making Medical Screen Exam Complete: Yes Emergency Medical Condition: Yes Medical Record Reviewed: Yes Differential Diagnosis Pyelonephritis, renal colic, muscular skeletal pain Narrative Course 2:33 AM blood test are within acceptable limits. However UA is grossly positive for UTI. CT scan which eventually got done shows right proximal ureter stone 2-3 mm with moderate obstruction. Patient was given pain medication initially along with IV fluid. I also included 1 g of IV Rocephin once the UA came back positive for UTI. I discussed the case with the urologist Dr. Simpson and he agrees with my concern for infected stone, IV antibiotic and admission. He'll consult on the patient. Awaiting for the medical admitting team to call back. Procedures EKG Prior to Arrival: No Physician Communication Physician Communication Dr. Simpson Diagnosis Primary Impression: Renal colic Additional Impressions: Ureteral calculi Pyelonephritis Hydronephrosis Qualified Codes: N13.2 - Hydronephrosis with renal and ureteral calculous obstruction Admitting Information Admitting Physician Requests: Admit Yung Pitts MD Jul 25, 2017 23:17
[2017-07-25] MEDS ORDERED: SODIUM CHLOR 0.9% 1000 ML INJ 1,000 ML IV ONE (23:20)
[2017-07-25] MEDS ORDERED: ONDANSETRON HCL 4 MG/2 ML VIAL IV PUSH ONE (23:30)
[2017-07-25] MEDS ORDERED: KETOROLAC TROMETHAMINE 30 MG/ML (IVP) VIAL IV PUSH ONE (23:30)
[2017-07-25] MEDS ORDERED: MORPHINE SULFATE 4 MG/ML INJ IV PUSH ONE (23:30)
[2017-07-25 23:32] LABS: AUTOMATED NEUTROPHIL # 4.8 TH/MM3 (1.8-7.7); BASOPHIL # 0.1 TH/MM3 (0-0.2); BASOPHIL % 0.7 % (0.0-2.0); EOSINOPHIL # 0.2 TH/MM3 (0-0.4); EOSINOPHIL % 1.9 % (0.0-4.0); HEMATOCRIT 36.4 % (35.0-46.0); HEMO FLAGS DIFF FINAL; LYMPHOCYTE # 4.1 TH/MM3 (1.0-4.8); MEAN CELL VOLUME 85.7 FL (80.0-100.0); MEAN CORPUSCULAR HEMOGLOBIN 29.7 PG (27.0-34.0); MEAN CORPUSCULAR HGB CONC 34.7 % (32.0-36.0); MONO % 6.4 % (0.0-8.0); PLATELET COUNT 286 TH/MM3 (150-450); RED BLOOD COUNT 4.25 MIL/MM3 (4.00-5.30); RED CELL DISTRIBUTION WIDTH 14.1 % (11.6-17.2); WHITE BLOOD COUNT 9.8 TH/MM3 (4.0-11.0)
[2017-07-25 23:38] LABS: BACTERIA, URINE MANY /hpf; BLOOD, URINE MOD (NEG); COMMENT (UR) CULTURE INDICATED; CULTURE IF INDICATED CULTURE INDICATED; GLUCOSE,URINE NEG (NEG); KETONE, URINE NEG (NEG); MUCUS URINE MANY /lpf (OCC); NITRITE,URINE POS (NEG); PH, URINE 5.5 (5.0-8.5); SQUAMOUS EPITHELIAL CELL URINE 1 /hpf (0-5); URINE COLOR YELLOW (YELLW/STRAW)
[2017-07-25] MEDS ORDERED: cefTRIAXone INJ 1,000 MG in SODIUM CHLORIDE 0.9% INJ 100 ML IV ONE (23:45)
[2017-07-25 23:51] LABS: ALT (GPT) 40 U/L (10-53); ANION GAP 7 MEQ/L (5-15); AST (GOT) 23 U/L (15-37); BICARBONATE 29.1 MEQ/L (21.0-32.0); BLOOD UREA NITROGEN 8 MG/DL (7-18); CHLORIDE 103 MEQ/L (98-107); GLOMERULAR FILTRATION RATE 68 ML/MIN (>89); POTASSIUM 3.2 MEQ/L (3.5-5.1); SODIUM (NA) 139 MEQ/L (136-145)
[2017-07-25 23:54] LABS: ALKALINE PHOSPHATASE 250 U/L (45-117); TOTAL BILIRUBIN ADULT 0.3 MG/DL (0.2-1.0)
[2017-07-26] MEDS ORDERED: POTASSIUM CHLORIDE 25 MEQ EFFERVESCENT TAB PO ONE
--- NOTE | 2017-07-26 01:25 | RADRPT ---
EXAM DATE/TIME: 07/26/2017 01:12 [facility] COMPARISON: No previous studies available for comparison. INDICATIONS : Right flank pain. ORAL CONTRAST: No oral contrast ingested. RADIATION DOSE: 5.71 CTDIvol (mGy) MEDICAL HISTORY : Renal calculi. SURGICAL HISTORY : Cholecystectomy. ENCOUNTER: Initial ACUITY: 4 - 6 days PAIN SCALE: 3/10 LOCATION: Right flank TECHNIQUE: Volumetric scanning of the abdomen and pelvis was performed. Using automated exposure control and ad justment of the mA and/or kV according to patient size, radiation dose was kept as low as reasonably achievable to obtain optimal diagnostic quality images. DICOM format image data is available electro nically for review and comparison. FINDINGS: LOWER LUNGS: The visualized lower lungs are clear. LIVER: Homogeneous density without lesion. There is no dilation of the biliary tree. Cholecystectomy clips. SPLEEN: Normal size without lesion. PANCREAS: Within normal limits. KIDNEYS: Normal in size and shape. There is no mass, stone, or hydronephrosis on the left. Mild obstructive u ropathy on the right secondary to a proximal ureteral calculus measuring 3-4 mm.. ADRENAL GLANDS: Within normal limits. VASCULAR: There is no aortic aneurysm. BOWEL/MESENTERY: The stomach, small bowel, and colon demonstrate no acute abnormality. There is no free intraperitone al air or fluid. ABDOMINAL WALL: Within normal limits. RETROPERITONEUM: There is no lymphadenopathy. BLADDER: No wall thickening or mass. REPRODUCTIVE: Within normal limits. INGUINAL: There is no lymphadenopathy or hernia. MUSCULOSKELETAL: Within normal limits for patient age. CONCLUSION: 1. Mild obstructive uropathy on the right secondary to proximal ureteral calculus measuring 3-4 mm. 2. Status post cholecystectomy. Contreras Chapin MD on July 26, 2017 at 1:22 Board Certified Radiologist. This report was verified electronically.
--- NOTE | 2017-07-26 03:06 | HHI.HP ---
HPI Service Family Medicine Primary Care Physician No Primary Care Physician Admission Diagnosis pyelonephritis, ureteral calculi, hydronephrosis Diagnoses: International Travel<30 Days: No Contact w/Intl Traveler<30days: No Known Affected Area: No History of Present Illness Patient is a 27-year-old Female with significant PMHx of recurrent kidney stones presenting to ED due to 3 day hx of blood in urine and worsening Right back pain. Pt describes Right back pain as stabbing with radiation to right upper side of abdomen, rates 8-10/10. Endorses burning with urination, increased frequency, subjective fever, dry mouth. Denies chills, CP, SOB. Pt states her appetite is good but she drinks a lot of soda. Of note pt had cholecystectomy Nov 2016 and reports N/V since then and also reports a 100lb wt loss which she attributes to the continuous vomiting. 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 -LMP- 3 months ago -pap smear, 2016 normal -negative test in ED -currently not on control (Cara Wilson MD, R1) Review of Systems Constitutional: COMPLAINS OF: Fever (subjective), DENIES: Fatigue Eyes: DENIES: Blurred vision Gastrointestinal: COMPLAINS OF: Nausea, Vomiting, DENIES: Bloody stools, Constipation Genitourinary: COMPLAINS OF: Urinary frequency, Hematuria, Dysuria Musculoskeletal: COMPLAINS OF: Back pain (Right sided) (Cara Wilson MD, R1) Past Family Social History Past Medical History recurrent nephrolithiasis Past Surgical History Lithotripsy, at age of 21yo Tonsillectomy Left arm surgery due to fx cholecystectomy, Nov 2016 Reported Medications xanax PRN for anxiety (Cara Wilson MD, R1) Allergies: Coded Allergies: No Known Allergies (Unverified , 07/25/17) Family History Father HTN, HLD, throat cancer was a smoker Half sister with breast CA at 35 ya Social History Tobacco use: 2 PPD x 8years, MJ . Former heroin use IV Occasional EtOH use. (Cara Wilson MD, R1) Physical Exam Vital Signs Vital Signs Date Time Temp Pulse Resp B/P (MAP) Pulse Ox O2 Delivery O2 Flow Rate FiO2 07/25/17 21:47 98.7 98 16 119/69 (86) 98 Room Air Physical Exam GENERAL: This is a well-nourished, well-developed patient, in no apparent distress. SKIN: No rashes, ecchymoses or lesions. Cool and dry. HEAD: Atraumatic. Normocephalic. No temporal or scalp tenderness. EYES: Pupils equal round and reactive. Extraocular motions intact. No scleral icterus. No injection or drainage. ENT: Nose without bleeding, purulent drainage or septal hematoma. Throat without erythema, tonsillar hypertrophy or exudate. Uvula midline. Airway patent. NECK: Trachea midline. No JVD or lymphadenopathy. Supple, nontender, no meningeal signs. CARDIOVASCULAR: Normal s1 and s2. Regular rate and rhythm without murmurs, gallops, or rubs. RESPIRATORY: Clear to auscultation. Breath sounds equal bilaterally. No wheezes , rales, or rhonchi. GASTROINTESTINAL: Abdomen soft, nondistended. No hepato-splenomegaly, or palpable masses. No guarding. Tender to palpation on RUQ. Positive Right CVA tenderness. MUSCULOSKELETAL: Extremities without clubbing, cyanosis, or edema. No joint tenderness, effusion, or edema noted. No calf tenderness. Negative Homans sign bilaterally. +2 DP pulses BL. NEUROLOGICAL: Awake and alert.Motor and sensory grossly within normal limits. Five out of 5 muscle strength in all muscle groups. Normal speech. Laboratory Laboratory Tests Test 07/25/17 23:20 White Blood Count 9.8 Red Blood Count 4.25 Hemoglobin 12.6 Hematocrit 36.4 Mean Corpuscular Volume 85.7 Mean Corpuscular Hemoglobin 29.7 Mean Corpuscular Hemoglobin Concent 34.7 Red Cell Distribution Width 14.1 Platelet Count 286 Mean Platelet Volume 7.9 Neutrophils (%) (Auto) 49.0 Lymphocytes (%) (Auto) 42.0 Monocytes (%) (Auto) 6.4 Eosinophils (%) (Auto) 1.9 Basophils (%) (Auto) 0.7 Neutrophils # (Auto) 4.8 Lymphocytes # (Auto) 4.1 Monocytes # (Auto) 0.6 Eosinophils # (Auto) 0.2 Basophils # (Auto) 0.1 CBC Comment DIFF FINAL Differential Comment Urine Color YELLOW Urine Turbidity HAZY Urine pH 5.5 Urine Specific [place] 1.027 Urine Protein 30 Urine Glucose (UA) NEG Urine Ketones NEG Urine Occult Blood MOD Urine Nitrite POS Urine Bilirubin NEG Urine Urobilinogen LESS THAN 2.0 Urine Leukocyte Esterase LARGE Urine RBC 16 Urine WBC 50 Urine Squamous Epithelial Cells 1 Urine Amorphous Sediment RARE Urine Bacteria MANY Urine Mucus MANY Microscopic Urinalysis Comment CULTURE INDICATED Blood Urea Nitrogen 8 Creatinine 0.97 Random Glucose 83 Total Protein 8.4 Albumin 3.9 Calcium Level 9.3 Alkaline Phosphatase 250 Aspartate Amino Transf (AST/SGOT) 23 Alanine Aminotransferase (ALT/SGPT) 40 Total Bilirubin 0.3 Sodium Level 139 Potassium Level 3.2 Chloride Level 103 Carbon Dioxide Level 29.1 Anion Gap 7 Estimat Glomerular Filtration Rate 68 Date/Time Source Procedure Growth Status 07/25/17 23:45 Blood Peripheral Aerobic Blood Culture Pending Received 07/25/17 23:45 Blood Peripheral Anaerobic Blood Culture Pending Received 07/25/17 23:20 Urine Clean Catch Urine Culture Pending Received (Cara Wilson MD, R1) Result Diagram: 07/25/17231907/25/172319 Imaging Last 48 hours Impressions Abdomen/Pelvis CT 07/25/172319 Signed Impressions: Service Date/Time: Wednesday, July 26, 2017 01:12 - CONCLUSION: 1. Mild obstructive uropathy on the right secondary to proximal ureteral calculus measuring 3-4 mm. 2. Status post cholecystectomy. Contreras Chapin MD (Cara Wilson MD, R1) Caprini VTE Risk Assessment Caprini VTE Risk Assessment: Mod/High Risk (score >= 2) Caprini Risk Assessment Model Point Value = 1 Point Value = 2 Point Value = 3 Point Value = 5 Age 41-60 Minor surgery BMI > 25 kg/m2 Swollen legs Varicose veins or History of unexplained or recurrent spontaneous Oral contraceptives or hormone replacement Sepsis (< 1 month) Serious lung disease, including pneumonia (< 1 month) Abnormal pulmonary function Acute myocardial infarction Congestive heart failure (< 1 month) History of inflammatory bowel disease Medical patient at bed rest Age 61-74 Arthroscopic surgery Major open surgery (> 45 min) Laparoscopic surgery (> 45 min) Malignancy Confined to bed (> 72 hours) Immobilizing plaster cast Central venous access Age >= 75 History of VTE Family history of VTE Factor V Leiden Prothrombin [id number] Lupus anticoagulant Anticardiolipin antibodies Elevated serum homocysteine Heparin-induced thrombocytopenia Other congenital or acquired thrombophilia Stroke (< 1 month) Elective arthroplasty Hip, pelvis, or leg fracture Acute spinal cord injury (< 1 month) Prophylaxis Regimen Total Risk Factor Score Risk Level Prophylaxis Regimen 0-1 Low Early ambulation 2 Moderate Order ONE of the following: *Sequential Compression Device (SCD) *Heparin 5000 units SQ BID 3-4 Higher Order ONE of the following medications: *Heparin 5000 units SQ TID *Enoxaparin/Lovenox 40 mg SQ daily (WT < 150 kg, CrCl > 30 mL/min) *Enoxaparin/Lovenox 30 mg SQ daily (WT < 150 kg, CrCl > 10-29 mL/min) *Enoxaparin/Lovenox 30 mg SQ BID (WT < 150 kg, CrCl > 30 mL/min) AND/OR *Sequential Compression Device (SCD) 5 or more Highest Order ONE of the following medications: *Heparin 5000 units SQ TID (Preferred with Epidurals) *Enoxaparin/Lovenox 40 mg SQ daily (WT < 150 kg, CrCl > 30 mL/min) *Enoxaparin/Lovenox 30 mg SQ daily (WT < 150 kg, CrCl > 10-29 mL/min) *Enoxaparin/Lovenox 30 mg SQ BID (WT < 150 kg, CrCl > 30 mL/min) AND *Sequential Compression Device (SCD) (Cara Wilson MD, R1) Assessment and Plan Assessment and Plan Patient is a 27-year-old Female with significant PMHx of recurrent nephrolithiasis presenting with 3 day hx of hematuria and worsening Right flank pain. Pt admitted for management of ureteral calculi and treatment of UTI. Pt is in no acute distress. afebrile, VS WNL. Code Status full code Discussed Condition With Dr. Shane (Cara Wilson MD, R1) Attending Attestation THIS CASE WAS DISCUSSED WITH THE RESIDENT PHYSICIANS. I HAVE REVIEWED THE RECORD AND AGREE WITH THE ABOVE NOTE AND PLAN OF CARE WAS DISCUSSED. I HAVE AUTHORIZED THE ORDER FOR ADMISSION TO AN IN-PATIENT STATUS. (Elysia Johnson MD) Problem List: (1) Ureteral calculi ICD Codes: N20.1 - Calculus of ureter Status: Acute Plan: Pt 3 day hx of hematuria and worsening Right flank pain. Afebrile. NAD. slightly tachy at 98 but all other VS WNL. WBC-9.8.On exam: positive CVA tenderness, tenderness on RUQ -UA positive for UTI ( positive Leukocyte, nitrates), UA also positive for occult blood -Abd/pelvis CT showed: Mild obstructive uropathy on the right secondary to proximal ureteral calculus measuring 3-4 mm. -urology consulted, -pt given Rocephin 1g x1 dose in ED, c/w rocephin 1g IV Q24h for treatment of UTI -c/w IVF 105mls/hr -c/w morphine 2mg IV PRN for pain -f/u bmp, urine cx, blood cx -monitor vs (2) Hypokalemia ICD Codes: E87.6 - Hypokalemia Status: Acute Plan: Pt found to have K- 3.2 - 25mEq of K-lyte Cl eff x1 given in ED -will continue to monitor K (3) Nutrition, metabolism, and development symptoms ICD Codes: R63.8 - Other symptoms and signs concerning food and fluid intake Plan: Fluids: 105mls/hr Electrolyte: monitor K, replete as needed Nutrition: NPO DVT ppx: SCDs (Cara Wilson MD, R1) Physician Certification 2 Midnight Certification Type: Admission for Inpatient Services Order for Inpatient Services The services are ordered in accordance with Medicare regulations or non- Medicare payer requirements, as applicable. In the case of services not specified as inpatient-only, they are appropriately provided as inpatient services in accordance with the 2-midnight benchmark. Estimated LOS (days): 5 days is the estimated time the patient will need to remain in the hospital, assuming treatment plan goals are met and no additional complications. Post-Hospital Plan: Home (Cara Wilson MD, R1) 2 Midnight Certification Type: Admission for Inpatient Services Post-Hospital Plan: Home (Elsyia Johnson MD) Cara Wilson MD, R1 Jul 26, 2017 03:05 Elysia Johnson MD Jul 26, 2017 13:09
[2017-07-26] MEDS ORDERED: SODIUM CHLORIDE 0.9% FLUSH 10 ML FLUSH IV FLUSH PRN (03:30)
[2017-07-26] MEDS ORDERED: MORPHINE SULFATE 4 MG/ML INJ IV PUSH ONE (03:30)
[2017-07-26] MEDS ORDERED: NALOXONE HCL 0.4 MG/ML AMP IV PUSH PRN (03:30)
[2017-07-26 03:47] VITALS: BP 120/78
[2017-07-26] MEDS: SODIUM CHLOR 0.9% 1000 ML INJ 1,000 ML IV SCH ×2 (03:56→12:54)
[2017-07-26] MEDS ORDERED: MORPHINE SULFATE 2 MG/ML INJ IV PUSH PRN (04:00)
[2017-07-26 04:50] VITALS: BP 94/51; PULSE 60; RESP 16; TEMP 96.7; O2SAT 97
[2017-07-26 08:00] VITALS: BP 93/56; PULSE 56; RESP 18; TEMP 96.9; O2SAT 95
[2017-07-26] MEDS ORDERED: MORPHINE SULFATE 4 MG/ML INJ IV PUSH PRN (08:30)
[2017-07-26] MEDS ORDERED: oxyCODONE/ACETAMINOPHEN 5 MG/325 MG TAB PO PRN (08:30)
[2017-07-26] MEDS ORDERED: TAMSULOSIN HCL 0.4 MG CAP PO SCH (09:00)
[2017-07-26] MEDS ORDERED: SODIUM CHLORIDE 0.9% FLUSH 10 ML FLUSH IV FLUSH SCH (09:00)
[2017-07-26] MEDS ORDERED: QUEtiapine FUMARATE 100 MG TAB PO SCH (09:00)
[2017-07-26] MEDS: KETOROLAC TROMETHAMINE 30 MG/ML (IVP) VIAL IV PUSH SCH ×2 (09:13→12:00)
[2017-07-26] MEDS: oxyCODONE/ACETAMINOPHEN 5 MG/325 MG TAB PO PRN ×2 (09:14→15:45)
--- NOTE | 2017-07-26 09:19 | RADRPT ---
EXAM DATE/TIME: 07/26/2017 09:32 [facility] COMPARISON: No previous studies available for comparison. INDICATIONS : Abdominal pain; renal calculi. MEDICAL HISTORY : None. SURGICAL HISTORY : Cholecystectomy. ENCOUNTER: Subsequent ACUITY: 1 week PAIN SCORE: 6/10 LOCATION: Right abdomen. FINDINGS: Supine view of the abdomen was performed. The abdominal bowel gas pattern is normal. No abnormal ma sses, calcifications, or organomegaly is seen. 3 mm calcification lower right pelvis probably repres ents a phlebolith. Hemoclips in the right hypogastric region from prior cholecystectomy. The osseou s structures are unremarkable. CONCLUSION: Benign abdomen. Sravan Covington MD on July 26, 2017 at 9:16 Board Certified Radiologist. This report was verified electronically.
--- NOTE | 2017-07-26 10:14 | MB ---
cc: HIMA LENNON MD DATE OF CONSULTATION: 07/26/2017 REASON FOR CONSULTATION 1. Right flank pain. 2. Right female ureteral calculus with mild hydronephrosis. 3. UTI. HISTORY OF PRESENT ILLNESS The patient is a 27-year-old female with a history of kidney stones with lithotripsy in the past, who presented to the ED with a three-day history of worsening right back pain, 8/10 in intensity, bloody in the urine and dysuria. The patient described the right back pain as stabbing with radiation to her abdomen, 8/10 at its worst. This was similar to pain that she had with stones in the past. She also complained of dysuria, urinary frequency and chills. In the ER a CT of the abdomen and pelvis without contrast was performed which showed a 3 mm proximal right ureteral stone with mild hydronephrosis and some mild perinephric stranding. She was found to have a normal white count, normal renal function, but had a urinary tract infection. Due to these findings she was admitted and urology was consulted. She was started on Rocephin one gram. The patient states her last kidney stone episode was approximately 6 years ago up in [place] where she had lithotripsy performed. She stated the etiology of her kidney stone was due to lack of water intake, but she has not had a stone episode in over 6 years. She denies any family history of kidney stones. She does get a urinary tract infection every so often. She denies any urinary incontinence, chest pain or shortness of breath at this time. Her pain is slightly better this morning compared to last night on arrival. REVIEW OF SYSTEMS See HPI; all systems reviewed are otherwise negative. PAST MEDICAL HISTORY 1. Nephrolithiasis. 2. Urinary tract infection. PAST SURGICAL HISTORY 1. Lithotripsy. 2. Tonsillectomy. 3. Cholecystectomy. MEDICATION Xanax p.r.n. for anxiety. ALLERGIES No known drug allergies. FAMILY HISTORY Denies urolithiasis or genitourinary malignancy. SOCIAL HISTORY Smokes two packs per day for the last eight years, and marijuana. Has abused heroin in the past. Occasional alcohol use. She is single. PHYSICAL EXAMINATION VITAL SIGNS: Temperature 96.7, pulse 60, respiratory rate 16, blood pressure 94/51, satting 97% on room air. GENERAL: She was sleeping upon entering the room, but on arousal she is alert and oriented x3, in no apparent distress, pleasant and cooperative, appearing her stated age. HEAD: Normocephalic, atraumatic. EYES: No scleral icterus. Extraocular muscles intact. NECK: Supple. Trachea is midline. No JVD. SKIN: No ulcers or rashes. She does have several tattoos. Mucous membranes are pink and moist. LUNGS: Clear to auscultation bilaterally. No wheezes, rales or rhonchi. HEART: Regular rate and rhythm without murmurs, gallops or rubs. ABDOMEN: Soft, nontender, nondistended. Positive bowel sounds. GENITOURINARY: She has mild right CVA tenderness. PELVIC: Exam not indicated at this time. EXTREMITIES: Nontender. No clubbing, cyanosis or edema. PSYCHIATRIC: Normal affect. NEUROLOGIC: Cranial nerves II-XII intact. Strength is 5/5 in all four extremities. LABORATORY White count 9.8, hemoglobin 12.6, hematocrit 36.4, platelet count 286. Sodium 139, potassium 2.2, chloride 103, bicarb 29.1, BUN 8, creatinine 0.97. Urine showed positive nitrites, moderate blood, large leukocyte esterase. Urine culture is currently pending. IMAGING STUDIES CT of the abdomen and pelvis without contrast was reviewed. Agree with the radiologist's report. The patient has a 3 mm proximal right ureteral stone with mild hydronephrosis with some perinephric stranding. No evidence of other kidney stones. ASSESSMENT The patient is a 27-year-old female with a history of kidney stones status post lithotripsy in the past, who presented with a three-day history of right flank pain and hematuria, found to have a female obstructing right ureteral stone and a UTI. PLAN Recommend conservative management at this time as the patient has normal white count, is not febrile, and her pain is currently controlled. Will add Flomax and Toradol to help with passage of the stone and pain control. Will have her strain all her urine. Will also check a KUB. Will start her on a regular diet. As long as her pain remains controlled she can be discharged home and follow-up as an outpatient as she has a high likelihood of passing the stone. Thank you for this consult. Please call with any questions. MD CAPRICE Olivares /8:26 AM /9:52 AM
[2017-07-26 12:00] VITALS: BP 97/55; PULSE 65; RESP 18; TEMP 96.8; O2SAT 99
[2017-07-26 14:52] LABS: BICARBONATE 27.7 MEQ/L (21.0-32.0); POTASSIUM 3.1 MEQ/L (3.5-5.1)
[2017-07-26] MEDS ORDERED: CIPR500T2 PO (15:23)
[2017-07-26] MEDS ORDERED: OXYC1TAB63 PO (15:23)
[2017-07-26] MEDS ORDERED: TAMS5CAP PO (15:23)
[2017-07-26] MEDS ORDERED: ZOFR4TAB PO (15:25)
--- NOTE | 2017-07-26 15:27 | HHI.DCPOC ---
Discharge Care Plan Diagnosis: (1) Hydronephrosis (2) Gastritis (3) Ureteral calculi Goals to Promote Your Health * To prevent worsening of your condition and complications * To maintain your health at the optimal level Directions to Meet Your Goals Take your medications as prescribed Follow your dietary instruction Follow activity as directed Keep your appointments as scheduled Take your immunizations and boosters as scheduled If your symptoms worsen call your PCP, if no PCP go to Urgent Care Center or Emergency Room Smoking is Dangerous to Your Health. Avoid second hand smoke Call the 24-hour hour crisis hotline for domestic abuse at Jason Lozano MD, R3 Jul 26, 2017 15:27
[2017-07-26 15:55] VITALS: BP 79/67; PULSE 68; RESP 16; TEMP 97.6; O2SAT 100
[2017-07-26] MEDS ORDERED: QUEtiapine FUMARATE 300 MG TAB PO SCH (21:00)
[2017-07-27] MEDS ORDERED: cefTRIAXone INJ 1,000 MG in SODIUM CHLORIDE 0.9% INJ 100 ML IV SCH ×2
== END 2017-07-26 17:03 | disposition home or self-care (01) | DRG 690 ==
LOC: NEPC 21:45 → NEDA 07-26 02:39 → N06A 07-26 04:21
PROVIDERS: ADMIT Family Medicine; ATTEND Family Medicine
DX: N13.6 Pyonephrosis (principal); F32.9 Major depressive disorder, single episode, unspecified; R63.4 Abnormal weight loss; E87.6 Hypokalemia; K29.70 Gastritis, unspecified, without bleeding; F12.90 Cannabis use, unspecified, uncomplicated; F41.9 Anxiety disorder, unspecified; Z72.0 Tobacco use; Z68.22 Body mass index [BMI] 22.0-22.9, adult; Z87.442 Personal history of urinary calculi
CPT/HCPCS: 74000; 74176; 80048; 80053; 81001; 84703; 85025; 87040; 87077; 87086; 87186; J0696; J1885; J2270; J2405; J7030

== ENCOUNTER 2017-08-18 13:40 | Emergency (ER) | payer BC ==
[~2017-08-18] VITALS: Ht 167.6 cm; Wt 59.0 kg
[~2017-08-18 13:40] MED LIST changes: +CIPR500T2 PO; +OXYC1TAB63 PO; -SERO50TA PO; +TAMS5CAP PO; +ZOFR4TAB PO
[2017-08-18 13:41] VITALS: BP 153/81; PULSE 71; RESP 20; TEMP 98.3; O2SAT 100
[2017-08-18] MEDS ORDERED: SODIUM CHLOR 0.9% 1000 ML INJ 1,000 ML IV ONE (14:53)
[2017-08-18] MEDS ORDERED: ONDANSETRON HCL 4 MG/2 ML VIAL IV PUSH ONE (15:00)
[2017-08-18] MEDS ORDERED: KETOROLAC TROMETHAMINE 30 MG/ML (IVP) VIAL IV PUSH ONE (15:00)
[2017-08-18] MEDS ORDERED: SODIUM CHLORIDE 0.9% FLUSH 10 ML FLUSH IVF PRN (15:00)
[2017-08-18 15:21] VITALS: BP 133/80; PULSE 84; RESP 17; O2SAT 100
--- NOTE | 2017-08-18 15:36 | PD ---
HPI . Nephrolithiasis Chief Complaint: Flank/Kidney Pain Time Seen by Provider: 14:55 Travel History International Travel<30 days: No Contact w/Intl Traveler<30days: No Traveled to known affect area: No History of Present Illness HPI 27-year-old female presents emergency department for evaluation of right-sided flank pain that started yesterday. Patient reports nausea, vomiting and hematuria. Patient reports the pain started yesterday but she's had a history of kidney stones in the past. Patient medical history is anxiety depression. She takes Xanax and Seroquel daily. PFSH Past Medical History Medical History: Denies Significant Hx Anxiety: Yes Depression: Yes Cancer: No Diminished Hearing: No Endocrine: No Genitourinary: Yes Immune Disorder: No Kidney Stones: Yes Musculoskeletal: Yes Neurologic: Yes Psychiatric: Yes Reproductive: No Respiratory: No Schizophrenia: Yes ?: Not LMP: "JANUARY 2017 WHEN GB TAKEN OUT" : 3 Para: 0 : 3 Past Surgical History Abdominal Surgery: Yes (gallbladder removed 11/2016) Cholecystectomy: Yes Genitourinary Surgery: Yes (kidney stones) Oral Surgery: Yes (tonsillectomy) Tonsillectomy: Yes Other Surgery: Yes (2 abortions) Social History Alcohol Use: No Tobacco Use: Yes Substance Use: No Allergies-Medications (Allergen,Severity, Reaction): Coded Allergies: No Known Allergies (Verified Adverse Reaction, Unknown, 08/18/17) Reported Meds & Prescriptions Reported Meds & Active Scripts Active Zofran (Ondansetron HCl) 4 Mg Tab 4 Mg PO Q6HR PRN Flomax (Tamsulosin HCl) 0.4 Mg Cap 0.4 Mg PO DAILY Ciprofloxacin (Ciprofloxacin HCl) 500 Mg Tab 500 Mg PO BID 7 Days Oxycodone-Acetaminophen 5-325 mg Tab 1 Tab PO Q4H PRN Phenergan (Promethazine HCl) 25 Mg Tablet 25 Mg PO Q6H PRN Ranitidine (Ranitidine HCl) 150 Mg Tab 150 Mg PO BID 14 Days Reported Seroquel (Quetiapine Fumarate) 100 Mg Tab 150 Mg PO DAILY Promethazine (Promethazine HCl) 12.5 Mg Tab 12.5 Mg PO Q6H PRN Seroquel (Quetiapine Fumarate) 300 Mg Tab 300 Mg PO HS Review of Systems Except as stated in HPI: all other systems reviewed are Neg Physical Exam Narrative GENERAL: Well-nourished, well-developed 27-year-old female patient that is restless on the stretcher and crying in pain. SKIN: Focused skin assessment warm/dry. HEAD: Normocephalic. Atraumatic. EYES: No scleral icterus. No injection or drainage. NECK: Supple, trachea midline. No JVD or lymphadenopathy. CARDIOVASCULAR: Regular rate and rhythm without murmurs, gallops, or rubs. RESPIRATORY: Breath sounds equal bilaterally. No accessory muscle use. GASTROINTESTINAL: Abdomen soft, non-tender, nondistended. MUSCULOSKELETAL: No cyanosis, or edema. BACK: Nontender without obvious deformity. Right-sided CVA tenderness. Data Data Last Documented VS Vital Signs Date Time Temp Pulse Resp B/P (MAP) Pulse Ox O2 Delivery O2 Flow Rate FiO2 08/18/17 17:20 17 08/18/17 16:57 81 117/69 (85) 100 Room Air 08/18/17 13:41 98.3 Orders Orders Complete Blood Count With Diff (08/18/17 14:53) Comprehensive Metabolic Panel (08/18/17 14:53) Urinalysis - C+S If Indicated (08/18/17 14:53) Ct Abd/Pel W/O Iv Contrast (08/18/17 14:53) Ecg Monitoring (08/18/17 14:53) Iv Access Insert/Monitor (08/18/17 14:53) Ketorolac Inj (Toradol Inj) (08/18/17 15:00) Ondansetron Inj (Zofran Inj) (08/18/17 15:00) Sodium Chloride 0.9% Flush (Ns Flush) (08/18/17 15:00) Sodium Chlor 0.9% 1000 Ml Inj (Ns 1000 M (08/18/17 14:53) Urine Culture (08/18/17 15:00) Morphine Inj (Morphine Inj) (08/18/17 16:30) Tamsulosin (Flomax) (08/18/17 16:45) Ceftriaxone Inj (Rocephin Inj) (08/18/17 17:45) Labs Laboratory Tests Test 08/18/17 15:00 White Blood Count 8.9 TH/MM3 Red Blood Count 4.35 MIL/MM3 Hemoglobin 12.9 GM/DL Hematocrit 37.5 % Mean Corpuscular Volume 86.3 FL Mean Corpuscular Hemoglobin 29.7 PG Mean Corpuscular Hemoglobin Concent 34.4 % Red Cell Distribution Width 14.9 % Platelet Count 315 TH/MM3 Mean Platelet Volume 9.2 FL Neutrophils (%) (Auto) 49.3 % Lymphocytes (%) (Auto) 38.4 % Monocytes (%) (Auto) 8.1 % Eosinophils (%) (Auto) 3.6 % Basophils (%) (Auto) 0.6 % Neutrophils # (Auto) 4.4 TH/MM3 Lymphocytes # (Auto) 3.4 TH/MM3 Monocytes # (Auto) 0.7 TH/MM3 Eosinophils # (Auto) 0.3 TH/MM3 Basophils # (Auto) 0.1 TH/MM3 CBC Comment DIFF FINAL Differential Comment Urine Color YELLOW Urine Turbidity HAZY Urine pH 6.0 Urine Specific [place] 1.036 Urine Protein 100 mg/dL Urine Glucose (UA) NEG mg/dL Urine Ketones TRACE mg/dL Urine Occult Blood LARGE Urine Nitrite NEG Urine Bilirubin NEG Urine Urobilinogen 4.0 MG/DL Urine Leukocyte Esterase TRACE Urine RBC /hpf Urine WBC 10 /hpf Urine Squamous Epithelial Cells 3 /hpf Urine Calcium Oxalate Crystals MOD /hpf Urine Bacteria FEW /hpf Urine Mucus MANY /lpf Microscopic Urinalysis Comment CULTURE INDICATED Blood Urea Nitrogen 9 MG/DL Creatinine 1.11 MG/DL Random Glucose 82 MG/DL Total Protein 9.2 GM/DL Albumin 4.2 GM/DL Calcium Level 9.4 MG/DL Alkaline Phosphatase 366 U/L Aspartate Amino Transf (AST/SGOT) 45 U/L Alanine Aminotransferase (ALT/SGPT) 63 U/L Total Bilirubin 0.6 MG/DL Sodium Level 138 MEQ/L Potassium Level 3.6 MEQ/L Chloride Level 101 MEQ/L Carbon Dioxide Level 25.6 MEQ/L Anion Gap 11 MEQ/L Estimat Glomerular Filtration Rate 58 ML/MIN [facility] Medical Decision Making Medical Screen Exam Complete: Yes Emergency Medical Condition: Yes Differential Diagnosis Differential diagnoses include but not limited to nephrolithiasis, UTI, gastroenteritis, pyelonephritis Narrative Course 27-year-old female presents emergency department for evaluation of right-sided flank pain, hematuria, nausea vomiting that started yesterday. IV placed, CBC, CMP, UA, abdominal CT without contrast ordered and pending. 30 mg Toradol IV, 4 mg Zofran IV and 1 L bolus of normal saline ordered. 3 mm stone noted on CT scan. Flomax by mouth ordered the patient now and urology called to facilitate follow-up per Dr. Fiore's suggestion. Dr Billingsley returned call and suggested we treat the patient's UTI but refrained from giving her any more Flomax as that has not helped her. Patient will be discharged home with instructions to follow up with urology outpatient. Last Impressions Abdomen/Pelvis CT 08/18/17 1453 Signed Impressions: Service Date/Time: August 15:38 - CONCLUSION: 1. There is a 3 mm stone at the ureterovesicular junction on the right. This appears to be the same stone which was present in the proximal ureter on the exam dated 07/26/17. Alexey Vegas MD Diagnosis Primary Impression: UTI (urinary tract infection) Qualified Codes: N39.0 - Urinary tract infection, site not specified; R31.9 - Hematuria, unspecified Additional Impression: Nephrolithiasis Referrals: Joaquín Billingsley MD Patient Instructions: General Instructions, Kidney Stones (DC), Urinary Tract Infection in Women (ED) Additional Instructions: Please return to emergency department if your symptoms return or worsen. Follow up with urologist. Take medications as prescribed. Stay hydrated. Disposition: 01 DISCHARGE HOME Condition: Stable Tyesha Vicente Aug 18, 2017 15:36
[2017-08-18 15:43] LABS: AUTOMATED NEUTROPHIL # 4.4 TH/MM3 (1.8-7.7); BASOPHIL # 0.1 TH/MM3 (0-0.2); BASOPHIL % 0.6 % (0.0-2.0); EOSINOPHIL # 0.3 TH/MM3 (0-0.4); EOSINOPHIL % 3.6 % (0.0-4.0); HEMATOCRIT 37.5 % (35.0-46.0); HEMO FLAGS DIFF FINAL; LYMPH % 38.4 % (9.0-44.0); LYMPHOCYTE # 3.4 TH/MM3 (1.0-4.8); MEAN CELL VOLUME 86.3 FL (80.0-100.0); MEAN CORPUSCULAR HEMOGLOBIN 29.7 PG (27.0-34.0); MEAN CORPUSCULAR HGB CONC 34.4 % (32.0-36.0); MONO % 8.1 % (0.0-8.0); NEUT % 49.3 % (16.0-70.0); PLATELET COUNT 315 TH/MM3 (150-450); RED BLOOD COUNT 4.35 MIL/MM3 (4.00-5.30); RED CELL DISTRIBUTION WIDTH 14.9 % (11.6-17.2); WHITE BLOOD COUNT 8.9 TH/MM3 (4.0-11.0)
[2017-08-18 15:54] LABS: BACTERIA, URINE FEW /hpf; BLOOD, URINE LARGE (NEG); CALCIUM OXALATE CRYSTALS,URINE MOD /hpf; COMMENT (UR) CULTURE INDICATED; CULTURE IF INDICATED CULTURE INDICATED; GLUCOSE,URINE NEG (NEG); KETONE, URINE TRACE mg/dL (NEG); MUCUS URINE MANY /lpf (OCC); NITRITE,URINE NEG (NEG); SQUAMOUS EPITHELIAL CELL URINE 3 /hpf (0-5); URINE COLOR YELLOW (YELLW/STRAW)
--- NOTE | 2017-08-18 15:54 | RADRPT ---
EXAM DATE/TIME: 08/18/2017 15:38 [place] COMPARISON: CT ABDOMEN & PELVIS W/O CONTRAST, July 26, 2017, 1:12. INDICATIONS : Right flank pain. ORAL CONTRAST: No oral contrast ingested. RADIATION DOSE: 4.11 CTDIvol (mGy) MEDICAL HISTORY : Renal calculi. SURGICAL HISTORY : Cholecystectomy. ENCOUNTER: Initial ACUITY: 2 days PAIN SCALE: 5/10 LOCATION: Right flank TECHNIQUE: Volumetric scanning of the abdomen and pelvis was performed. Using automated exposure control and ad justment of the mA and/or kV according to patient size, radiation dose was kept as low as reasonably achievable to obtain optimal diagnostic quality images. DICOM format image data is available electro nically for review and comparison. FINDINGS: The limited portion of the lung base visualized is clear. Right kidney/ureter: The right kidney is normal in size. There are mild hydronephrotic changes. The right ureter is mildly enlarged throughout its course. Distally, the examination demonstrates a 3 mm stone at the right ure terovesicular junction. Left kidney: The left kidney is normal in size. No stones are seen. There is no hydronephrosis. Left ureter is fol lowed throughout its course and is unremarkable. Bladder: There is a 2 mm stone at the right UVJ. The bladder is otherwise unremarkable. CT source data: The visualized portions of liver and spleen are intact. The pancreas and adrenal glands are intact. T he patient is post cholecystectomy. The visualized loops of small and large bowel are unremarkable. CONCLUSION: 1. There is a 3 mm stone at the ureterovesicular junction on the right. This appears to be the same s tone which was present in the proximal ureter on the exam dated 07/26/17. Alexey Vegas MD on August 18, 2017 at 15:49 Board Certified Radiologist. This report was verified electronically.
[2017-08-18 16:11] LABS: ALKALINE PHOSPHATASE 366 U/L (45-117); ALT (GPT) 63 U/L (10-53); TOTAL BILIRUBIN ADULT 0.6 MG/DL (0.2-1.0)
[2017-08-18 16:14] LABS: ANION GAP 11 MEQ/L (5-15); AST (GOT) 45 U/L (15-37); BICARBONATE 25.6 MEQ/L (21.0-32.0); BLOOD UREA NITROGEN 9 MG/DL (7-18); CHLORIDE 101 MEQ/L (98-107); GLOMERULAR FILTRATION RATE 58 ML/MIN (>89); SODIUM (NA) 138 MEQ/L (136-145)
[2017-08-18 16:17] LABS: POTASSIUM 3.6 MEQ/L (3.5-5.1)
[2017-08-18] MEDS ORDERED: MORPHINE SULFATE 4 MG/ML INJ IV PUSH ONE (16:30)
[2017-08-18] MEDS ORDERED: TAMSULOSIN HCL 0.4 MG CAP PO ONE (16:45)
[2017-08-18 16:57] VITALS: BP 117/69; PULSE 81; RESP 17; O2SAT 100
[2017-08-18] MEDS ORDERED: cefTRIAXone INJ 1,000 MG in SODIUM CHLORIDE 0.9% INJ 100 ML IV ONE (17:45)
[2017-08-18 18:42] VITALS: BP 103/69; PULSE 68; RESP 17; O2SAT 100
== END 2017-08-18 19:06 | disposition home or self-care (01) ==
LOC: NEPD 13:40
DX: N20.0 Calculus of kidney (principal); F41.9 Anxiety disorder, unspecified; F20.9 Schizophrenia, unspecified; Z87.442 Personal history of urinary calculi; Z72.0 Tobacco use
CPT/HCPCS: 74176; 80053; 81001; 85025; 87086; 96361; 96365; 96375; 99285; J0696; J1885; J2270; J2405; J7030

== ENCOUNTER 2017-09-29 09:36 | Inpatient (IN) | payer BC ==
[~2017-09-29] VITALS: Ht 167.6 cm; Wt 58.7 kg
[2017-09-29 09:37] VITALS: BP 105/60; PULSE 76; RESP 14; TEMP 98.2; O2SAT 99
--- NOTE | 2017-09-29 10:08 | PD ---
HPI Chief Complaint: Psychiatric Symptoms Time Seen by Provider: 09:53 Travel History International Travel<30 days: No Contact w/Intl Traveler<30days: No Traveled to known affect area: No History of Present Illness HPI 27-year-old female presents to the emergency Department voluntarily for psych evaluation with complaint of visual and auditory hallucinations times one week. Has history of schizophrenia. Has been recently injecting crack cocaine and Dilaudid. Denies suicidal or homicidal ideations. Denies alcohol use. Takes Seroquel. Says her symptoms are better when she uses IV drugs. Symptoms are worse when she is not using drugs. Last menstrual period unknown; she says it may have been like 9 months ago. Denies risk of . Primary care providers in [place]. No known allergies. History of kidney stones and schizophrenia. Has no other emergent medical complaints. No other modifying factors or associated signs and symptoms. PFSH Past Medical History Anxiety: Yes Depression: Yes Cancer: No Diminished Hearing: No Endocrine: No Genitourinary: Yes Immune Disorder: No Implanted Vascular Access Dvce: No Kidney Stones: Yes Musculoskeletal: Yes Neurologic: Yes Psychiatric: Yes Reproductive: No Respiratory: No Schizophrenia: Yes ?: Unknown : 3 Para: 0 : 3 Past Surgical History Abdominal Surgery: Yes (gallbladder removed 11/2016) Cholecystectomy: Yes Genitourinary Surgery: Yes (kidney stones) Oral Surgery: Yes (tonsillectomy) Tonsillectomy: Yes Other Surgery: Yes (3 abortions) Social History Alcohol Use: No Tobacco Use: Yes Substance Use: No Allergies-Medications (Allergen,Severity, Reaction): Coded Allergies: No Known Allergies (Verified Adverse Reaction, Unknown, 09/29/17) Reported Meds & Prescriptions Reported Meds & Active Scripts Active Zofran (Ondansetron HCl) 4 Mg Tab 4 Mg PO Q6HR PRN Flomax (Tamsulosin HCl) 0.4 Mg Cap 0.4 Mg PO DAILY Ciprofloxacin (Ciprofloxacin HCl) 500 Mg Tab 500 Mg PO BID 7 Days Oxycodone-Acetaminophen 5-325 mg Tab 1 Tab PO Q4H PRN Phenergan (Promethazine HCl) 25 Mg Tablet 25 Mg PO Q6H PRN Ranitidine (Ranitidine HCl) 150 Mg Tab 150 Mg PO BID 14 Days Reported Seroquel (Quetiapine Fumarate) 100 Mg Tab 150 Mg PO DAILY Promethazine (Promethazine HCl) 12.5 Mg Tab 12.5 Mg PO Q6H PRN Seroquel (Quetiapine Fumarate) 300 Mg Tab 300 Mg PO HS Review of Systems Except as stated in HPI: all other systems reviewed are Neg Physical Exam Narrative GENERAL: Well-nourished, well-developed female patient, in no acute distress SKIN: Warm and dry. HEAD: Atraumatic. Normocephalic. EYES: Pupils equal and round. ENT: Mucosa pink and moist. NECK: Supple. Trachea midline. CARDIOVASCULAR: Regular rate and rhythm. No murmur appreciated. RESPIRATORY: No accessory muscle use. Clear to auscultation. Breath sounds equal bilaterally. GASTROINTESTINAL: Abdomen soft, non-tender, nondistended. Hepatic and splenic margins not palpable. Bowel sounds are active 4 quadrants. MUSCULOSKELETAL: No obvious deformities. No clubbing. No cyanosis. No edema. BACK: Right CVA tenderness. NEUROLOGICAL: Awake and alert. Oriented 3. No obvious cranial nerve deficits. Motor grossly within normal limits. Normal speech. Moves all extremities. 5/5 strength to all extremities. PSYCHIATRIC: No delusional thought processes. No hallucinations. Data Data Last Documented VS Vital Signs Date Time Temp Pulse Resp B/P (MAP) Pulse Ox O2 Delivery O2 Flow Rate FiO2 09/29/17 17:35 67 18 103/57 (72) 98 Room Air 09/29/17 09:37 98.2 Orders Orders Complete Blood Count With Diff (09/29/17 09:53) Comprehensive Metabolic Panel (09/29/17 09:53) Urinalysis - C+S If Indicated (09/29/17 09:53) Ed Urine Pregnancytest Poc (09/29/17 09:53) Psych Screen (09/29/17 09:53) Drug Screen, Random Urine (09/29/17 09:53) Alcohol (Ethanol) (09/29/17 09:53) Salicylates (Aspirin) (09/29/17 09:53) Tylenol (Acetaminophen) (09/29/17 09:53) Diet Regular Basic (09/29/17 Lunch) Diet Regular Basic (09/29/17 Dinner) Labs Laboratory Tests Test 09/29/17 10:15 09/29/17 10:20 Urine Color YELLOW Urine Turbidity CLEAR Urine pH 6.5 Urine Specific [place] 1.017 Urine Protein TRACE mg/dL Urine Glucose (UA) NEG mg/dL Urine Ketones NEG mg/dL Urine Occult Blood NEG Urine Nitrite NEG Urine Bilirubin NEG Urine Urobilinogen LESS THAN 2.0 MG/DL Urine Leukocyte Esterase NEG Urine RBC LESS THAN 1 /hpf Urine WBC 2 /hpf Urine Squamous Epithelial Cells 3 /hpf Urine Bacteria OCC /hpf Urine Hyaline Casts 6 /lpf Urine Mucus FEW /lpf Microscopic Urinalysis Comment CULT NOT INDICATED Urine Opiates Screen POS Urine Barbiturates Screen NEG Urine Amphetamines Screen NEG Urine Benzodiazepines Screen NEG Urine Cocaine Screen POS Urine Cannabinoids Screen POS White Blood Count 7.9 TH/MM3 Red Blood Count 4.48 MIL/MM3 Hemoglobin 13.3 GM/DL Hematocrit 39.2 % Mean Corpuscular Volume 87.5 FL Mean Corpuscular Hemoglobin 29.7 PG Mean Corpuscular Hemoglobin Concent 33.9 % Red Cell Distribution Width 13.9 % Platelet Count 221 TH/MM3 Mean Platelet Volume 8.1 FL Neutrophils (%) (Auto) 61.1 % Lymphocytes (%) (Auto) 27.1 % Monocytes (%) (Auto) 7.0 % Eosinophils (%) (Auto) 4.3 % Basophils (%) (Auto) 0.5 % Neutrophils # (Auto) 4.8 TH/MM3 Lymphocytes # (Auto) 2.1 TH/MM3 Monocytes # (Auto) 0.6 TH/MM3 Eosinophils # (Auto) 0.3 TH/MM3 Basophils # (Auto) 0.0 TH/MM3 CBC Comment DIFF FINAL Differential Comment Total Protein 8.9 GM/DL Alkaline Phosphatase 341 U/L Total Bilirubin 0.3 MG/DL Anion Gap 11 MEQ/L Estimat Glomerular Filtration Rate 87 ML/MIN Salicylates Level 2.1 MG/DL Acetaminophen Level LESS THAN 2.0 MCG/ML Ethyl Alcohol Level LESS THAN 3 MG/DL [facility] Medical Decision Making Medical Screen Exam Complete: Yes Emergency Medical Condition: Yes Medical Record Reviewed: Yes Differential Diagnosis Schizophrenia, medical clearance for psych evaluation, polysubstance abuse Narrative Course Patient presents voluntarily. Physical examination and vital signs are essentially unremarkable. Patient has no medical complaints to report. Psych screen has been ordered. If the laboratory results are unremarkable, the patient will be medically cleared for psychiatric evaluation and disposition. 1821: Labs faxed CMP reports down and I reviewed the levels and are all unremarkable. Diagnosis Primary Impression: Medical clearance for psychiatric admission Condition: Stable Rassi,Zulma K DAIRY INSPECTOR Sep 29, 2017 10:08
[2017-09-29 10:34] LABS: AUTOMATED NEUTROPHIL # 4.8 TH/MM3 (1.8-7.7); BASOPHIL % 0.5 % (0.0-2.0); EOSINOPHIL # 0.3 TH/MM3 (0-0.4); EOSINOPHIL % 4.3 % (0.0-4.0); HEMATOCRIT 39.2 % (35.0-46.0); HEMOGLOBIN 13.3 GM/DL (11.6-15.3); LYMPH % 27.1 % (9.0-44.0); LYMPHOCYTE # 2.1 TH/MM3 (1.0-4.8); MEAN CELL VOLUME 87.5 FL (80.0-100.0); MEAN CORPUSCULAR HEMOGLOBIN 29.7 PG (27.0-34.0); MEAN CORPUSCULAR HGB CONC 33.9 % (32.0-36.0); MEAN PLATELET VOLUME 8.1 FL (7.0-11.0); MONOCYTE # 0.6 TH/MM3 (0-0.9); NEUT % 61.1 % (16.0-70.0); PLATELET COUNT 221 TH/MM3 (150-450); RED BLOOD COUNT 4.48 MIL/MM3 (4.00-5.30); RED CELL DISTRIBUTION WIDTH 13.9 % (11.6-17.2); WHITE BLOOD COUNT 7.9 TH/MM3 (4.0-11.0)
[2017-09-29 10:43] LABS: BACTERIA, URINE OCC /hpf; BILIRUBIN, URINE NEG (NEG); BLOOD, URINE NEG (NEG); GLUCOSE,URINE NEG (NEG); HYALINE CAST, URINE 6 /lpf (RARE); KETONE, URINE NEG (NEG); MUCUS URINE FEW /lpf (OCC); NITRITE,URINE NEG (NEG); PH, URINE 6.5 (5.0-8.5); SQUAMOUS EPITHELIAL CELL URINE 3 /hpf (0-5); URINE COLOR YELLOW (YELLW/STRAW); URINE LEUKOCYTE ESTERASE NEG (NEG)
[2017-09-29 10:52] LABS: ALBUMIN 4.1 GM/DL (3.4-5.0); ALT (GPT) 72 U/L (10-53); AST (GOT) 100 U/L (15-37); BICARBONATE 25.1 MEQ/L (21.0-32.0); BLOOD UREA NITROGEN 8 MG/DL (7-18); CALCIUM 9.5 MG/DL (8.5-10.1); CHLORIDE 103 MEQ/L (98-107); CREATININE 0.78 MG/DL (0.50-1.00); GLOMERULAR FILTRATION RATE 87 ML/MIN (>89); GLUCOSE,RANDOM 67 MG/DL (74-106); SODIUM (NA) 139 MEQ/L (136-145)
[2017-09-29 10:54] LABS: ALKALINE PHOSPHATASE 341 U/L (45-117); TOTAL BILIRUBIN ADULT 0.3 MG/DL (0.2-1.0); TOTAL PROTEIN 8.9 GM/DL (6.4-8.2)
[2017-09-29 10:57] LABS: ACETAMINOPHEN LESS THAN 2.0 MCG/ML (10.0-30.0)
[2017-09-29 11:20] VITALS: BP 124/69
[2017-09-29 14:38] VITALS: BP 124/69; PULSE 70; RESP 18; O2SAT 98
[2017-09-29 17:35] VITALS: BP 103/57; PULSE 67; RESP 18; O2SAT 98
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
[2017-09-29] MEDS ORDERED: MAGNESIUM HYDROXIDE SUSP 30 ML CUP PO PRN (20:15)
[2017-09-29] MEDS ORDERED: ALUMINUM/MAGNESIUM/SIMETH 30 ML CUP PO PRN (20:15)
[2017-09-29] MEDS ORDERED: ACETAMINOPHEN 325 MG TAB PO PRN (20:15)
[2017-09-29] MEDS ORDERED: PILL SPLITTER OTHER PRN (21:00)
[2017-09-29] MEDS ORDERED: QUEtiapine FUMARATE 300 MG TAB PO SCH (21:00)
[2017-09-29 21:25] VITALS: BP 116/56; PULSE 75; RESP 16; TEMP 98.7; O2SAT 98
[2017-09-30 06:00] VITALS: BP 99/58; PULSE 63; RESP 16; TEMP 97.6; O2SAT 98
[2017-09-30] MEDS ORDERED: QUEtiapine FUMARATE 100 MG TAB PO SCH (09:00)
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
[2017-09-30 14:13] LABS: BICARBONATE 30.2 MEQ/L (21.0-32.0); BLOOD UREA NITROGEN 8 MG/DL (7-18); CHLORIDE 104 MEQ/L (98-107); CHOLESTEROL 147 MG/DL (120-200); CREATININE 0.84 MG/DL (0.50-1.00); GLOMERULAR FILTRATION RATE 80 ML/MIN (>89); GLUCOSE,RANDOM 110 MG/DL (74-106); SODIUM (NA) 141 MEQ/L (136-145)
[2017-09-30 14:22] LABS: LDL CHOLESTEROL 84 MG/DL (0-99); TRIGLYCERIDES 69 MG/DL (42-150)
[2017-09-30 16:13] LABS: HEMOGLOBIN A1C 4.6 % (4.3-6.0)
[2017-09-30 18:00] VITALS: BP 103/59; PULSE 77; RESP 18; TEMP 98.2; O2SAT 98
[2017-09-30] MEDS: HALOPERIDOL 5 MG TAB PO SCH (18:00)
[2017-09-30] MEDS: QUEtiapine FUMARATE 200 MG TAB PO SCH (21:05)
[2017-09-30] MEDS: hydrOXYzine HCL 50 MG TAB PO PRN (21:05)
[2017-10-01 06:21] VITALS: BP 104/65; PULSE 66; RESP 16; TEMP 97.8; O2SAT 98
[2017-10-01] MEDS: HALOPERIDOL 5 MG TAB PO SCH ×2 (07:57→16:52)
[2017-10-01] MEDS: NICOTINE 21 MG/24 HR PATCH T-DERMAL SCH (07:58)
[2017-10-01] MEDS: hydrOXYzine HCL 50 MG TAB PO PRN ×2 (08:22→14:20)
[2017-10-01] MEDS ORDERED: LORazepam 2 MG/ML VIAL IM ONE (15:45)
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
[2017-10-01] MEDS: QUEtiapine FUMARATE 200 MG TAB PO SCH (21:27)
[2017-10-02 05:45] VITALS: BP 100/58; PULSE 63; RESP 16; TEMP 97.6; O2SAT 97
[2017-10-02] MEDS: HALOPERIDOL 5 MG TAB PO SCH (08:01)
[2017-10-02] MEDS: NICOTINE 21 MG/24 HR PATCH T-DERMAL SCH (08:01)
[2017-10-02] MEDS: hydrOXYzine HCL 50 MG TAB PO PRN ×3 (08:10→22:27)
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
[2017-10-02] MEDS ORDERED: BENZTROPINE MESYLATE 2 MG/2 ML VIAL IM ONE (17:00)
[2017-10-02 17:48] VITALS: BP 110/68; PULSE 86; RESP 18; TEMP 98.2; O2SAT 99
[2017-10-02] MEDS: BENZTROPINE MESYLATE 1 MG TAB PO PRN (19:42)
[2017-10-02] MEDS: QUEtiapine FUMARATE 200 MG TAB PO SCH (20:18)
[2017-10-03] MEDS: BENZTROPINE MESYLATE 1 MG TAB PO PRN (02:19)
[2017-10-03] MEDS: hydrOXYzine HCL 50 MG TAB PO PRN (05:55)
[2017-10-03 06:06] VITALS: BP 109/61; PULSE 70; RESP 17; TEMP 98.6; O2SAT 95
[2017-10-03] MEDS ORDERED: QUET1TAB9 PO (08:29)
[2017-10-03] MEDS ORDERED: BENZ0.5T PO (08:29)
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
[2017-10-03] MEDS: NICOTINE 21 MG/24 HR PATCH T-DERMAL SCH (08:56)
[2017-10-03] MEDS ORDERED: REMOVE OLD NICODERM (NICOTINE) PATCH T-DERMAL SCH (09:00)
== END 2017-10-03 12:35 | disposition home or self-care (01) | DRG 883 ==
LOC: NEPJ 09:36 → NEDA 20:13 → H260 21:28 → H270 10-01 16:00
PROVIDERS: ADMIT Psychiatry & Neurology Psychiatry; ATTEND Psychiatry & Neurology Psychiatry
DX: F60.3 Borderline personality disorder (principal); G24.09 Other drug induced dystonia; F20.9 Schizophrenia, unspecified; F11.10 Opioid abuse, uncomplicated; F43.25 Adjustment disorder with mixed disturbance of emotions and conduct; F14.10 Cocaine abuse, uncomplicated; F12.10 Cannabis abuse, uncomplicated; Z62.810 Personal history of physical and sexual abuse in childhood; Z91.5 Personal history of self-harm; Z81.8 Family history of other mental and behavioral disorders; F31.9 Bipolar disorder, unspecified; T43.4X5A Adverse effect of butyrophenone and thiothixene neuroleptics, initial encounter; F17.210 Nicotine dependence, cigarettes, uncomplicated; F41.9 Anxiety disorder, unspecified
CPT/HCPCS: 80048; 80053; 80061; 80307; 81001; 83036; 84443; 84703; 85025; 99285; J0515; J2060

== ENCOUNTER 2017-12-29 22:47 | Inpatient (IN) | payer BC ==
[~2017-12-29] VITALS: Ht 167.6 cm; Wt 62.7 kg
[~2017-12-29 22:47] MED LIST changes: +BENZ0.5T PO; -CIPR500T2 PO; -OXYC1TAB63 PO; -PROM12.54 PO; -PROM25TA10 PO; +QUET1TAB9 PO; -SERO100T PO; -SERO300T PO; -TAMS5CAP PO; -ZOFR4TAB PO
[2017-12-30] VITALS (8 sets, daily range): BP systolic 84–124; BP diastolic 53–67; PULSE 79–90; RESP 16–18; TEMP 97.8–98.8; O2SAT 98–100
[2017-12-30] MEDS ORDERED: LORA-474 PO (00:25)
[2017-12-30] MEDS ORDERED: birth control (00:25)
[2017-12-30] MEDS ORDERED: BUPR150CR PO (00:25)
--- NOTE | 2017-12-30 00:43 | PD ---
HPI Chief Complaint: Pain: Acute or Chronic Time Seen by Provider: 00:19 Travel History International Travel<30 days: No Contact w/Intl Traveler<30days: No Traveled to known affect area: No History of Present Illness HPI pt is a 27 yr old female with a Hx of psych disorder and IVDA abuse , pt reports that she was recently in [facility] for an right forearm abscess and while she was in the hospital they discovered that she had endo carditis seen on IGGY but for unknown explained reason left AMA to be treated in [facility] was her preference ..She was seen by a coal mine inspector at [facility]( [facility])? She reports she was told to come to the ER to be admitted for IV antibiotic And echo and full work up and treatment for endo carditis. Patient says she has not had fevers or chest pain over the last weeks in between that visit and this visit patient is healthy awake alert does not have any signs of septic afebrile at triage. She is on no antibiotics at this time. PFSH Past Medical History Anxiety: Yes Depression: Yes Cancer: No Cardiovascular Problems: Yes (endocarditis) Diminished Hearing: No Endocrine: No Genitourinary: Yes Immune Disorder: No Implanted Vascular Access Dvce: No Kidney Stones: Yes Musculoskeletal: Yes Neurologic: Yes Psychiatric: Yes Reproductive: No Respiratory: No Schizophrenia: Yes Influenza Vaccination: No ?: Not LMP: 12/23/17 : 3 Para: 0 : 3 Past Surgical History Abdominal Surgery: Yes (gallbladder removed 11/2016) Cholecystectomy: Yes Genitourinary Surgery: Yes (kidney stones) Oral Surgery: Yes (tonsillectomy) Tonsillectomy: Yes Other Surgery: Yes (3 abortions) Social History Alcohol Use: No Tobacco Use: Yes (pack ) Substance Use: Yes (canabis, crack cocaine, IV dilaudid, IV heroin) Allergies-Medications (Allergen,Severity, Reaction): Coded Allergies: No Known Allergies (Verified Adverse Reaction, Unknown, 12/30/17) Reported Meds & Prescriptions Reported Meds & Active Scripts Active Quetiapine (Quetiapine Fumarate) 200 Mg Tab 400 Mg PO HS 15 Days Reported [ control] Wellbutrin SR 12 HR (Bupropion HCl) 150 Mg Tab 150 Mg PO Q12HR Ativan (Lorazepam) 1 Mg Tab 1 Mg PO Q6H PRN Review of Systems Except as stated in HPI: all other systems reviewed are Neg General / Constitutional: No: Fever, Chills Cardiovascular: No: Chest Pain or Discomfort Physical Exam Narrative GENERAL: Nontoxic afebrile no signs of sepsis SKIN: Warm and dry. HEAD: Atraumatic. Normocephalic. EYES: Pupils equal and round. No scleral icterus. No injection or drainage. ENT: No nasal bleeding or discharge. Mucous membranes pink and moist. NECK: Trachea midline. No JVD. CARDIOVASCULAR: Regular rate and rhythm. Patient has a slight murmur heard on auscultation RESPIRATORY: No accessory muscle use. Clear to auscultation. Breath sounds equal bilaterally. GASTROINTESTINAL: Abdomen soft, non-tender, nondistended. Hepatic and splenic margins not palpable. MUSCULOSKELETAL: Extremities right forearm has a bandage over healing abscess that was I&D to the other hospital . NEUROLOGICAL: Awake and alert. No obvious cranial nerve deficits. Motor grossly within normal limits. Five out of 5 muscle strength in the arms and legs. Normal speech. PSYCHIATRIC: Appropriate mood and affect; insight and judgment normal. Data Data Last Documented VS Vital Signs Date Time Temp Pulse Resp B/P (MAP) Pulse Ox O2 Delivery O2 Flow Rate FiO2 12/30/17 02:48 82 16 106/67 (80) 98 Room Air 12/30/17 00:34 98.4 Orders Orders Complete Blood Count With Diff (12/30/17 00:29) Comprehensive Metabolic Panel (12/30/17 00:29) Ckmb (Isoenzyme) Profile (12/30/17 00:29) Troponin I (12/30/17 00:29) B-Type Natriuretic Peptide (12/30/17 00:29) Lipase (12/30/17 00:29) Magnesium (Mg) (12/30/17 00:29) Chest, Pa & Lat (12/30/17 00:29) CKMB (12/30/17 00:43) CKMB% (12/30/17 00:43) D5-1/2 Ns + Kcl 40 Meq Inj (D5-1/2 Ns + (12/30/17 01:30) Vancomycin Inj (Vancomycin Inj) (12/30/17 02:45) Piperacil-Tazo 3.375 Gm Premix (Zosyn 3. (12/30/17 02:45) Admit Order (Ed Use Only) (12/30/17 03:02) Labs Laboratory Tests Test 12/30/17 00:43 White Blood Count 10.0 TH/MM3 Red Blood Count 3.91 MIL/MM3 Hemoglobin 11.8 GM/DL Hematocrit 33.8 % Mean Corpuscular Volume 86.5 FL Mean Corpuscular Hemoglobin 30.1 PG Mean Corpuscular Hemoglobin Concent 34.8 % Red Cell Distribution Width 13.8 % Platelet Count 343 TH/MM3 Mean Platelet Volume 8.0 FL Neutrophils (%) (Auto) 68.0 % Lymphocytes (%) (Auto) 24.2 % Monocytes (%) (Auto) 6.3 % Eosinophils (%) (Auto) 1.1 % Basophils (%) (Auto) 0.4 % Neutrophils # (Auto) 6.8 TH/MM3 Lymphocytes # (Auto) 2.4 TH/MM3 Monocytes # (Auto) 0.6 TH/MM3 Eosinophils # (Auto) 0.1 TH/MM3 Basophils # (Auto) 0.0 TH/MM3 CBC Comment DIFF FINAL Differential Comment Blood Urea Nitrogen 11 MG/DL Creatinine 1.07 MG/DL Random Glucose 88 MG/DL Total Protein 9.4 GM/DL Albumin 3.8 GM/DL Calcium Level 9.2 MG/DL Magnesium Level 2.2 MG/DL Alkaline Phosphatase 299 U/L Aspartate Amino Transf (AST/SGOT) 37 U/L Alanine Aminotransferase (ALT/SGPT) 89 U/L Total Bilirubin 0.4 MG/DL Sodium Level 137 MEQ/L Potassium Level 2.9 MEQ/L Chloride Level 103 MEQ/L Carbon Dioxide Level 26.7 MEQ/L Anion Gap 7 MEQ/L Estimat Glomerular Filtration Rate 61 ML/MIN Total Creatine Kinase 108 U/L Creatine Kinase MB 2.5 NG/ML Troponin I LESS THAN 0.02 NG/ML B-Type Natriuretic Peptide 7 PG/ML Lipase 71 U/L [facility] Medical Decision Making Medical Screen Exam Complete: Yes Emergency Medical Condition: Yes Differential Diagnosis Endocarditis versus other sources of vegetations on valves that were seen on an echo at the other hospital Narrative Course Patient is given Vanco and Zosyn to cover the endocarditis. I got records sent from [facility] that showed she had a transesophageal echo that showed that she had vegetations growing on her valve consistent with endocarditis patient is admitted IV fluid is given potassium is low I replaced that with 40 mEq in D5 half-normal running at 1 25 cc an hour patient is stable and admitted to Dr. Zamora for further evaluation by cardiology and treatment of endocarditis first dose of Zosyn and Vanco was given in the ER Diagnosis Primary Impression: Endocarditis Admitting Information Admitting Physician Requests: Justin Tinajero MD Dec 30, 2017 00:43
[2017-12-30 01:02] LABS: AUTOMATED NEUTROPHIL # 6.8 TH/MM3 (1.8-7.7); BASOPHIL % 0.4 % (0.0-2.0); EOSINOPHIL # 0.1 TH/MM3 (0-0.4); EOSINOPHIL % 1.1 % (0.0-4.0); HEMATOCRIT 33.8 % (35.0-46.0); HEMOGLOBIN 11.8 GM/DL (11.6-15.3); LYMPH % 24.2 % (9.0-44.0); LYMPHOCYTE # 2.4 TH/MM3 (1.0-4.8); MEAN CELL VOLUME 86.5 FL (80.0-100.0); MEAN CORPUSCULAR HEMOGLOBIN 30.1 PG (27.0-34.0); MEAN CORPUSCULAR HGB CONC 34.8 % (32.0-36.0); MONO % 6.3 % (0.0-8.0); MONOCYTE # 0.6 TH/MM3 (0-0.9); PLATELET COUNT 343 TH/MM3 (150-450); RED BLOOD COUNT 3.91 MIL/MM3 (4.00-5.30); RED CELL DISTRIBUTION WIDTH 13.8 % (11.6-17.2)
--- NOTE | 2017-12-30 01:17 | RADRPT ---
EXAM DATE/TIME: 12/30/2017 01:07 [place] COMPARISON: No previous studies available for comparison. INDICATIONS : Patient referred to ER by physician for endocarditis. No chest complaints. MEDICAL HISTORY : None. SURGICAL HISTORY : None. ENCOUNTER: Initial ACUITY: 2 days PAIN SCORE: 0/10 LOCATION: chest FINDINGS: PA and lateral views of the chest demonstrate the lungs to be symmetrically aerated without evidence of mass, infiltrate or effusion. The cardiomediastinal contours are unremarkable. Osseous structure s are intact. CONCLUSION: No acute abnormality demonstrated. Jhon Ansari MD on December 30, 2017 at 1:15 Board Certified Radiologist. This report was verified electronically.
[2017-12-30 01:21] LABS: ALBUMIN 3.8 GM/DL (3.4-5.0); ALKALINE PHOSPHATASE 299 U/L (45-117); ALT (GPT) 89 U/L (10-53); AST (GOT) 37 U/L (15-37); BICARBONATE 26.7 MEQ/L (21.0-32.0); BLOOD UREA NITROGEN 11 MG/DL (7-18); CALCIUM 9.2 MG/DL (8.5-10.1); CHLORIDE 103 MEQ/L (98-107); CREATININE 1.07 MG/DL (0.50-1.00); GLOMERULAR FILTRATION RATE 61 ML/MIN (>89); GLUCOSE,RANDOM 88 MG/DL (74-106); MAGNESIUM 2.2 MG/DL (1.5-2.5); SODIUM (NA) 137 MEQ/L (136-145); TOTAL BILIRUBIN ADULT 0.4 MG/DL (0.2-1.0); TOTAL PROTEIN 9.4 GM/DL (6.4-8.2); TROPONIN I LESS THAN 0.02 NG/ML (0.02-0.05)
[2017-12-30] MEDS ORDERED: D5-1/2 NS + KCL 40 MEQ INJ 1,000 ML IV SCH (01:30)
[2017-12-30] MEDS ORDERED: VANCOMYCIN INJ 1,000 MG in SODIUM CHLOR 0.9% 250 ML INJ 250 ML IV ONE (02:45)
[2017-12-30] MEDS ORDERED: PIPERACIL-TAZO 3.375 GM PREMIX 50 ML IV ONE (02:45)
[2017-12-30] MEDS ORDERED: SODIUM CHLORIDE 0.9% FLUSH 10 ML FLUSH IV FLUSH PRN (03:15)
[2017-12-30] MEDS ORDERED: Vancomycin Consult Pharmacy 1 EA OTHER SCH (03:15)
[2017-12-30] MEDS ORDERED: BISACODYL 10 MG SUPP RECTAL PRN (03:15)
[2017-12-30] MEDS ORDERED: ONDANSETRON HCL 4 MG/2 ML VIAL IVP PRN (03:15)
[2017-12-30] MEDS ORDERED: MAGNESIUM HYDROXIDE SUSP 30 ML CUP PO PRN (03:15)
[2017-12-30] MEDS ORDERED: SENNOSIDES 8.6 MG TAB PO PRN (03:15)
[2017-12-30] MEDS ORDERED: LACTULOSE SYRUP 20 GM/30 ML CUP PO PRN (03:15)
[2017-12-30] MEDS ORDERED: ACETAMINOPHEN 325 MG TAB PO PRN (03:15)
[2017-12-30] MEDS ORDERED: POTASSIUM CHLORIDE 20 MEQ CONTROLLED RELEASE TAB PO ONE (03:45)
[2017-12-30] MEDS: SODIUM CHLOR 0.9% 1000 ML INJ 1,000 ML IV SCH ×2 (03:46→13:05)
--- NOTE | 2017-12-30 03:58 | HHI.HP ---
[facility]ician Unknown Admission Diagnosis endocarditis Diagnoses: (1) Endocarditis Diagnosis: Principal (2) IVDU (intravenous drug user) Diagnosis: Principal (3) Tobacco abuse Diagnosis: Principal Travel History International Travel<30 Days: No Contact w/Intl Traveler <30 Da: No Traveled to Known Affected Are: No History of Present Illness This is a 27-year-old female with a PMH of Schizophrenia, IVDU and Tobacco Abuse who was referred to the ER by her radio station operator, Dr. Mackenzie for admission due to Endocarditis. Pt w/ recent admit at [facility] 11/26-11/29/17, for RUE Abscess s/p I&D 11/26/17, cultures +MRSA, Echo w/ small mobile mass ventral aspect of septal leaflet consistent w/ infective endocarditis, s/p eval by ID, on Vanc/Cefepime w/ recommendation for long-term antibiotics for 6wks, however pt LEFT AMA as she lives here in [facility]. Seen by Dr. Mackenzie today and referred to the ER for admission. Pt denies complaints at this time. On arrival, BP 124/59, HR 85, O2 sat 99% on RA, Afebrile. CBC unremarkable. Chemistry unremarkable except for K+ 2.9. Troponin negative. CPK 299. Creatinine 1.07. CXR with no acute findings. S/ p Vanc/Zosyn in ER Review of Systems Except as stated in HPI: all other systems reviewed are Neg ROS: 14 point review of systems otherwise negative. Past Family Social History Past Medical History PMH: Schizophrenia, IVDU and Tobacco Abuse Past Surgical History PAST SURGICAL HISTORY: Cholecystectomy, Tonsillectomy, 3 Abortions Allergies: Coded Allergies: No Known Allergies (Verified Adverse Reaction, Unknown, 12/30/17) Family History PAST FAMILY HISTORY: Reviewed. No h/o DM or CAD Social History PAST SOCIAL HISTORY: Negative for alcohol. Smokes 1ppd. +IVDU, Heroin/Crack/ Dilaudid Physical Exam Vital Signs Vital Signs Date Time Temp Pulse Resp B/P (MAP) Pulse Ox O2 Delivery O2 Flow Rate FiO2 3/30/18 02:48 82 16 106/67 (80) 98 Room Air 12/30/17 00:34 98.4 12/30/17 00:25 85 18 124/59 (80) 99 Room Air Physical Exam PE: GENERAL: Extremely pleasant young white female in no acute distress. HEENT: PERRLA, EOMI. No scleral icterus or conjunctival pallor. No lid lag or facial droop. CARDIOVASCULAR: Regular rate and rhythm. No obvious murmurs to auscultation. No chest tenderness to palpation. RESPIRATORY: No obvious rhonchi or wheezing. Clear to auscultation. Breath sounds equal bilaterally. GASTROINTESTINAL: Abdomen soft, non-tender, nondistended. BS normal. MUSCULOSKELETAL: Extremities without clubbing, cyanosis, or edema. No obvious deformities. RUE bandage at site of I&D, healing well. NEUROLOGICAL: Awake, alert and oriented x4. No focal neurologic deficits. Moving both upper and lower extremities spontaneously. Laboratory Laboratory Tests Test 12/30/17 00:43 White Blood Count 10.0 Red Blood Count 3.91 Hemoglobin 11.8 Hematocrit 33.8 Mean Corpuscular Volume 86.5 Mean Corpuscular Hemoglobin 30.1 Mean Corpuscular Hemoglobin Concent 34.8 Red Cell Distribution Width 13.8 Platelet Count 343 Mean Platelet Volume 8.0 Neutrophils (%) (Auto) 68.0 Lymphocytes (%) (Auto) 24.2 Monocytes (%) (Auto) 6.3 Eosinophils (%) (Auto) 1.1 Basophils (%) (Auto) 0.4 Neutrophils # (Auto) 6.8 Lymphocytes # (Auto) 2.4 Monocytes # (Auto) 0.6 Eosinophils # (Auto) 0.1 Basophils # (Auto) 0.0 CBC Comment DIFF FINAL Differential Comment Blood Urea Nitrogen 11 Creatinine 1.07 Random Glucose 88 Total Protein 9.4 Albumin 3.8 Calcium Level 9.2 Magnesium Level 2.2 Alkaline Phosphatase 299 Aspartate Amino Transf (AST/SGOT) 37 Alanine Aminotransferase (ALT/SGPT) 89 Total Bilirubin 0.4 Sodium Level 137 Potassium Level 2.9 Chloride Level 103 Carbon Dioxide Level 26.7 Anion Gap 7 Estimat Glomerular Filtration Rate 61 Total Creatine Kinase 108 Creatine Kinase MB 2.5 Troponin I LESS THAN 0.02 B-Type Natriuretic Peptide 7 Lipase 71 Result Diagram: 12/30/17 0043 12/30/17 0043 Caprini VTE Risk Assessment Caprini VTE Risk Assessment: No/Low Risk (score <= 1) Caprini Risk Assessment Model Point Value = 1 Point Value = 2 Point Value = 3 Point Value = 5 Age 41-60 Minor surgery BMI > 25 kg/m2 Swollen legs Varicose veins or History of unexplained or recurrent spontaneous Oral contraceptives or hormone replacement Sepsis (< 1 month) Serious lung disease, including pneumonia (< 1 month) Abnormal pulmonary function Acute myocardial infarction Congestive heart failure (< 1 month) History of inflammatory bowel disease Medical patient at bed rest Age 61-74 Arthroscopic surgery Major open surgery (> 45 min) Laparoscopic surgery (> 45 min) Malignancy Confined to bed (> 72 hours) Immobilizing plaster cast Central venous access Age >= 75 History of VTE Family history of VTE Factor V Leiden Prothrombin [id number] Lupus anticoagulant Anticardiolipin antibodies Elevated serum homocysteine Heparin-induced thrombocytopenia Other congenital or acquired thrombophilia Stroke (< 1 month) Elective arthroplasty Hip, pelvis, or leg fracture Acute spinal cord injury (< 1 month) Prophylaxis Regimen Total Risk Factor Score Risk Level Prophylaxis Regimen 0-1 Low Early ambulation 2 Moderate Order ONE of the following: *Sequential Compression Device (SCD) *Heparin 5000 units SQ BID 3-4 Higher Order ONE of the following medications: *Heparin 5000 units SQ TID *Enoxaparin/Lovenox 40 mg SQ daily (WT < 150 kg, CrCl > 30 mL/min) *Enoxaparin/Lovenox 30 mg SQ daily (WT < 150 kg, CrCl > 10-29 mL/min) *Enoxaparin/Lovenox 30 mg SQ BID (WT < 150 kg, CrCl > 30 mL/min) AND/OR *Sequential Compression Device (SCD) 5 or more Highest Order ONE of the following medications: *Heparin 5000 units SQ TID (Preferred with Epidurals) *Enoxaparin/Lovenox 40 mg SQ daily (WT < 150 kg, CrCl > 30 mL/min) *Enoxaparin/Lovenox 30 mg SQ daily (WT < 150 kg, CrCl > 10-29 mL/min) *Enoxaparin/Lovenox 30 mg SQ BID (WT < 150 kg, CrCl > 30 mL/min) AND *Sequential Compression Device (SCD) Assessment and Plan Problem List: (1) Endocarditis ICD Code: I38 - Endocarditis, valve unspecified Status: Acute (2) IVDU (intravenous drug user) ICD Code: F19.90 - Other psychoactive substance use, unspecified, uncomplicated (3) Tobacco abuse ICD Code: Z72.0 - Tobacco use Assessment and Plan A/P: 1. Endocarditis: +IVDU, recent admit to [facility] for RUE Absces, s/p I&D, Echo 11/26/17 w/ vegetation consistent w/ infective endocarditis , all records from [place] reviewed by me. Pt LEFT AMA at that time, referred to ER by Dr. Mackenzie for admission and treatment. Check Blood Cultures, continue IV Vanc/Cefepime, Consult ID for further evaluation. 2. IVDU: ongoing, Ativan prn for agitation/withdrawal 3. Tobacco Abuse: Pt counselled. NicoDerm prn if needed. 4. DVT Prophylaxis: SCD/Teds. 5. Social work for d/c planning as needed. 6. Case discussed w/ ER physician at length, labs/records/imaging reviewed by me. Physician Certification 2 Midnight Certification Type: Admission for Inpatient Services Order for Inpatient Services The services are ordered in accordance with Medicare regulations or non- Medicare payer requirements, as applicable. In the case of services not specified as inpatient-only, they are appropriately provided as inpatient services in accordance with the 2-midnight benchmark. Estimated LOS (days): 2 days is the estimated time the patient will need to remain in the hospital, assuming treatment plan goals are met and no additional complications. Post-Hospital Plan: Not yet determined Cheryl Covarrubias MD Dec 30, 2017 03:58
[2017-12-30] MEDS: SODIUM CHLORIDE 0.9% FLUSH 10 ML FLUSH IV FLUSH SCH ×2 (09:00→21:56)
[2017-12-30] MEDS: CEFEPIME INJ 1,000 MG in SODIUM CHLORIDE 0.9% INJ 100 ML IV SCH ×2 (09:19→21:54)
[2017-12-30] MEDS: buPROPion HCL 150 MG SUSTAINED RELEASE TAB PO SCH ×2 (09:21→21:55)
[2017-12-30] MEDS: DOCUSATE SODIUM 50 MG/SENNA 8.6 MG TAB PO SCH ×2 (09:21→21:55)
--- NOTE | 2017-12-30 09:55 | MB ---
cc: Tyrell Cleary MD DATE: 12/30/2017 REASON FOR CONSULTATION: Evaluation of endocarditis. HISTORY OF PRESENT ILLNESS: Ning Nina is a 27-year-old woman with a history of intravenous drug abuse, who I was consulted for to followup on endocarditis. The patient was admitted to [facility] on 11/26/2017 with an abscess in her right arm that grew MRSA. She had a IGGY showing a small, very mobile vegetation on the right ventricular aspect of her tricuspid valve. She was recommended 6 weeks of IV antibiotics. She left the hospital against medical advice on 11/29/2017. She presented to Dr. Mackenzie's office, my associate, and he advised coming to the ER. She has been on Keflex in between 11/29/2017 and now. Denies any fevers. States she last used IV drugs 2 days ago. PAST MEDICAL HISTORY: Includes schizophrenia, prior hepatitis, tobacco abuse. PAST SURGICAL HISTORY: Cholecystectomy, tonsillectomy 3 abortions. ALLERGIES: None. FAMILY HISTORY: Unremarkable. SOCIAL HISTORY: Notable for smoking 1 pack per day. IV drug use including Dilaudid, heroin and crack. PHYSICAL EXAMINATION: GENERAL: Exam reveals a well-developed, nontoxic-appearing white female in no acute distress. VITAL SIGNS: Charted. She is afebrile. HEENT: Unremarkable. NECK: No JVD. No bruits. CHEST: Clear to auscultation. CARDIOVASCULAR: Normal first and second heart sounds, regular rate and rhythm. There may barely be a grade 1/6 flow murmur. ABDOMEN: Soft. EXTREMITIES: No clubbing, cyanosis or edema. Right upper extremity is bandaged. I do not see any Osler's nodes or Janeway lesions. LABORATORY DATA: Charted. Potassium was 2.9. White count 10,000. Previously, she had an elevated reactive CRP of 1.34 and a sedimentation rate of 28 in [place]. IMPRESSION: Incompletely treated endocarditis. RECOMMENDATIONS: 1. ID has been consulted. 2. I ordered a regular echo to check up on her valve. 3. I will follow her on a p.r.n. basis. Please call if there are any questions. Tyrell Cleary MD VEW/REAGAN , 09:36 AM , 09:55 AM
--- NOTE | 2017-12-30 11:27 | EKG ---
Date Performed: 12/30/2017 Time Performed: 00:25:25 PTAGE: 27 years EKG: Sinus rhythm NORMAL ECG PREVIOUS TRACING : 02/23/2017 22.07 Since the previous tracing, no significant change noted DOCTOR: Matt Dudley Interpretating Date/Time 12/30/2017 11:24:54
[2017-12-30] MEDS: VANCOMYCIN INJ 1,250 MG in SODIUM CHLOR 0.9% 250 ML INJ 250 ML IV SCH (13:00)
--- NOTE | 2017-12-30 13:06 | PD.ID.CON ---
History of Present Illness Service ID Consult Requested By Dr Covarrubias Reason for Consult endocarditis Primary Care Physician Unknown Diagnoses: History of Present Illness 27 yo F with IVDU was diagnosed in [place] with endocarditis ? MRSA about 2-3 weeks ago she completed about 1 week of IV in-pt abx and then she leaved AMA She decided to check in back to the hospital to complete treatment, but states she feels OK No fever, chills she was discharged w/o PICC She is afebrile, a little hypotensive normal WBC Review of Systems Except as stated in HPI: all other systems reviewed are Neg Past Family Social History Allergies: Coded Allergies: No Known Allergies (Verified Adverse Reaction, Unknown, 12/30/17) Past Medical History Schizophrenia, IVDU and Tobacco Abuse Past Surgical History Cholecystectomy, Tonsillectomy, 3 Abortions Active Ordered Medications Medications where reviewed in EMR Antibiotics Include: vanco cefepim e Family History Reviewed. Non contributory to current illness Social History P : Negative for alcohol. Smokes 1ppd. +IVDU, Heroin/Crack/Dilaudid Physical Exam Vital Signs Vital Signs Date Time Temp Pulse Resp B/P (MAP) Pulse Ox O2 Delivery O2 Flow Rate FiO2 12/30/17 12:24 98.8 80 16 88/53 (65) 100 12/30/17 08:54 98.8 86 18 84/55 (65) 98 12/30/17 04:56 97.8 86 16 98/57 (71) 98 12/30/17 03:46 12/30/17 02:48 82 16 106/67 (80) 98 Room Air 12/30/17 00:34 98.4 12/30/17 00:25 85 18 124/59 (80) 99 Room Air Physical Exam CONSTITUTIONAL/GENERAL: This is an adequately nourished patient, in no apparent distress. TUBES/LINES/DRAINS: SKIN: No jaundice, rashes, or lesions. Ecchymoses on upper extremities. No wounds seen anteriorly. Skin temperature appropriate. Not diaphoretic. HEAD: Atraumatic. Normocephalic. EYES: Pupils equal and round and reactive. Extraocular motions intact. No scleral icterus. No injection or drainage. Fundi not examined. ENT: Hearing grossly normal. Nose without bleeding or purulent drainage. Throat without visible erythema, exudates, masses, or lesions. NECK: Trachea midline. Supple, nontender. No palpable thyroid enlargement or nodularity. CARDIOVASCULAR: Regular rate and rhythm without murmurs, gallops, or rubs. No JVD. Peripheral pulses symmetric. RESPIRATORY/CHEST: Symmetric, unlabored respirations. Clear to auscultation. Breath sounds equal bilaterally. No wheezes, rales, or rhonchi. GASTROINTESTINAL: Abdomen soft, non-tender, nondistended. No hepato-splenomegaly , or palpable masses. No guarding. Bowel sounds present. GENITOURINARY: Without palpable bladder distension. MUSCULOSKELETAL: Extremities without clubbing, cyanosis, or edema. No joint tenderness or effusion noted. No calf tenderness. No mottling or clubbing. LYMPHATICS: No palpable cervical or supraclavicular adenopathy. NEUROLOGICAL: Awake and alert. Motor and sensory grossly within normal limits. Follows commands. Clear speech . Moves all extremities. PSYCHIATRIC: No obvious anxiety/depression. no apparent hallucinations or other psychotic thought process. Laboratory Laboratory Tests Test 12/30/17 00:43 White Blood Count 10.0 Red Blood Count 3.91 Hemoglobin 11.8 Hematocrit 33.8 Mean Corpuscular Volume 86.5 Mean Corpuscular Hemoglobin 30.1 Mean Corpuscular Hemoglobin Concent 34.8 Red Cell Distribution Width 13.8 Platelet Count 343 Mean Platelet Volume 8.0 Neutrophils (%) (Auto) 68.0 Lymphocytes (%) (Auto) 24.2 Monocytes (%) (Auto) 6.3 Eosinophils (%) (Auto) 1.1 Basophils (%) (Auto) 0.4 Neutrophils # (Auto) 6.8 Lymphocytes # (Auto) 2.4 Monocytes # (Auto) 0.6 Eosinophils # (Auto) 0.1 Basophils # (Auto) 0.0 CBC Comment DIFF FINAL Differential Comment Blood Urea Nitrogen 11 Creatinine 1.07 Random Glucose 88 Total Protein 9.4 Albumin 3.8 Calcium Level 9.2 Magnesium Level 2.2 Alkaline Phosphatase 299 Aspartate Amino Transf (AST/SGOT) 37 Alanine Aminotransferase (ALT/SGPT) 89 Total Bilirubin 0.4 Sodium Level 137 Potassium Level 2.9 Chloride Level 103 Carbon Dioxide Level 26.7 Anion Gap 7 Estimat Glomerular Filtration Rate 61 Total Creatine Kinase 108 Creatine Kinase MB 2.5 Troponin I LESS THAN 0.02 B-Type Natriuretic Peptide 7 Lipase 71 Date/Time Source Procedure Growth Status 12/30/17 00:45 Blood Peripheral Aerobic Blood Culture Pending Received 12/30/17 00:45 Blood Peripheral Anaerobic Blood Culture Pending Received Result Diagram: 12/30/17 0043 12/30/17 0043 Imaging Last Impressions Chest X-Ray 12/30/17 0029 Signed Impressions: Service Date/Time: Saturday, December 30, 2017 01:07 - CONCLUSION: No acute abnormality demonstrated. Jhon Ansari MD Assessment and Plan Assessment and Plan Endocarditis ? tricuspid valve - doiagnosed in another facility IVDU cont current abx fu clx 2 D echo fu blood clx Gay Kevin MD Dec 30, 2017 13:06
[2017-12-31] VITALS (7 sets, daily range): BP systolic 88–112; BP diastolic 49–71; PULSE 68–102; RESP 16–18; TEMP 97.4–99; O2SAT 98–100
[2017-12-31] MEDS: QUEtiapine FUMARATE 200 MG TAB PO SCH ×2 (00:23→20:35)
[2017-12-31] MEDS: LORazepam 2 MG/ML VIAL IV PUSH PRN ×3 (00:47→20:35)
[2017-12-31] MEDS: VANCOMYCIN INJ 1,250 MG in SODIUM CHLOR 0.9% 250 ML INJ 250 ML IV SCH ×2 (00:48→13:00)
[2017-12-31] MEDS: SODIUM CHLORIDE 0.9% FLUSH 10 ML FLUSH IV FLUSH SCH ×2 (00:48→20:35)
[2017-12-31] MEDS: SODIUM CHLOR 0.9% 1000 ML INJ 1,000 ML IV SCH ×3 (05:57→16:52)
[2017-12-31 07:06] LABS: AUTOMATED NEUTROPHIL # 2.4 TH/MM3 (1.8-7.7); BASOPHIL % 0.6 % (0.0-2.0); EOSINOPHIL # 0.3 TH/MM3 (0-0.4); EOSINOPHIL % 4.8 % (0.0-4.0); HEMATOCRIT 27.5 % (35.0-46.0); HEMOGLOBIN 9.5 GM/DL (11.6-15.3); LYMPHOCYTE # 2.9 TH/MM3 (1.0-4.8); MEAN CELL VOLUME 87.3 FL (80.0-100.0); MEAN CORPUSCULAR HGB CONC 34.4 % (32.0-36.0); MEAN PLATELET VOLUME 8.1 FL (7.0-11.0); MONO % 10.6 % (0.0-8.0); MONOCYTE # 0.7 TH/MM3 (0-0.9); PLATELET COUNT 293 TH/MM3 (150-450); RED BLOOD COUNT 3.15 MIL/MM3 (4.00-5.30); RED CELL DISTRIBUTION WIDTH 14.2 % (11.6-17.2); WHITE BLOOD COUNT 6.4 TH/MM3 (4.0-11.0)
[2017-12-31 08:18] LABS: ALBUMIN 2.8 GM/DL (3.4-5.0); ALKALINE PHOSPHATASE 223 U/L (45-117); ALT (GPT) 61 U/L (10-53); AST (GOT) 26 U/L (15-37); BICARBONATE 25.4 MEQ/L (21.0-32.0); BLOOD UREA NITROGEN 10 MG/DL (7-18); CALCIUM 8.3 MG/DL (8.5-10.1); CHLORIDE 111 MEQ/L (98-107); CREATININE 0.73 MG/DL (0.50-1.00); GLOMERULAR FILTRATION RATE 94 ML/MIN (>89); GLUCOSE,RANDOM 76 MG/DL (74-106); SODIUM (NA) 142 MEQ/L (136-145); TOTAL BILIRUBIN ADULT 0.3 MG/DL (0.2-1.0); TOTAL PROTEIN 7.1 GM/DL (6.4-8.2)
[2017-12-31] MEDS: buPROPion HCL 150 MG SUSTAINED RELEASE TAB PO SCH ×2 (08:42→20:35)
[2017-12-31] MEDS: CEFEPIME INJ 1,000 MG in SODIUM CHLORIDE 0.9% INJ 100 ML IV SCH ×2 (08:43→20:35)
[2017-12-31] MEDS: DOCUSATE SODIUM 50 MG/SENNA 8.6 MG TAB PO SCH ×2 (08:43→20:35)
[2017-12-31] MEDS ORDERED: PHARMACY ORDERED LAB ONE (12:45)
--- NOTE | 2017-12-31 16:03 | HHI.PR ---
Subjective Remarks Patient seen this morning around 9 AM. Says she is feeling all right. Denies any chest pain or shortness of breath. Denies any nausea or vomiting. Recent bowel movement. Objective Vital Signs Date Time Temp Pulse Resp B/P (MAP) Pulse Ox O2 Delivery O2 Flow Rate FiO2 12/31/17 14:16 98.6 74 18 109/71 (84) 100 12/31/17 07:33 97.7 85 16 88/51 (63) 98 12/31/17 03:31 97.4 78 16 89/49 (62) 99 12/31/17 00:13 97.9 68 16 101/53 (69) 99 12/30/17 21:10 98.8 79 16 100/55 (70) 99 12/30/17 16:35 98.7 90 18 98/55 (69) 100 I/O 12/30/17 12/30/17 12/30/17 12/31/17 12/31/17 12/31/17 07:00 15:00 23:00 07:00 15:00 23:00 Intake Total 175 ml 100 ml Balance 175 ml 100 ml Intake IV Total 175 ml 100 ml Result Diagram: 12/31/1762412/31/17624 Objective Remarks GENERAL: Patient lying in bed. Appears comfortable. Alert and oriented 3. SKIN: Warm and dry. HEAD: Normocephalic. EYES: No scleral icterus. No injection or drainage. NECK: Supple, trachea midline. No JVD . CARDIOVASCULAR: Regular rate and rhythm without murmurs, gallops, or rubs. RESPIRATORY: Breath sounds equal bilaterally. No accessory muscle use. GASTROINTESTINAL: Abdomen soft, non-tender, nondistended. MUSCULOSKELETAL: No cyanosis, or edema. BACK: Nontender without obvious deformity. No CVA tenderness. A/P Assessment and Plan // Endocarditis: +IVDU, recent admit to [facility] for RUE [place], s/p I&D, Echo 11/26/17 w/ vegetation consistent w/ infective endocarditis , all records from [place] reviewed by me. Pt LEFT AMA at that time, referred to ER by Dr. Mackenzie for admission and treatment. Check Blood Cultures, continue IV Vanc/Cefepime, Consult ID for further evaluation. = Continue antibiotics as per infectious disease. Appreciate assistance. // IVDU: ongoing, Ativan prn for agitation/withdrawal //Tobacco Abuse: Pt counselled. NicoDerm prn if needed. // DVT Prophylaxis: SCD/Teds. Discharge Planning Continue IV antibiotics treatment for colitis as per infectious disease. Larry Edmonds MD Dec 31, 2017 16:03
[2018-01-01] MEDS: VANCOMYCIN INJ 1,250 MG in SODIUM CHLOR 0.9% 250 ML INJ 250 ML IV SCH (01:27)
[2018-01-01 04:00] VITALS: BP 90/49; PULSE 87; RESP 16; TEMP 98.4; O2SAT 98
[2018-01-01 08:35] VITALS: BP 99/57; PULSE 84; RESP 16; TEMP 98.4; O2SAT 99
[2018-01-01] MEDS: DOCUSATE SODIUM 50 MG/SENNA 8.6 MG TAB PO SCH ×2 (09:00→21:39)
[2018-01-01] MEDS: SODIUM CHLORIDE 0.9% FLUSH 10 ML FLUSH IV FLUSH SCH ×2 (10:10→21:00)
[2018-01-01] MEDS: SODIUM CHLOR 0.9% 1000 ML INJ 1,000 ML IV SCH ×2 (10:10→14:45)
[2018-01-01] MEDS: CEFEPIME INJ 1,000 MG in SODIUM CHLORIDE 0.9% INJ 100 ML IV SCH ×2 (10:10→21:39)
[2018-01-01] MEDS: buPROPion HCL 150 MG SUSTAINED RELEASE TAB PO SCH ×2 (10:11→21:40)
[2018-01-01] MEDS: LORazepam 2 MG/ML VIAL IV PUSH PRN ×4 (10:12→21:43)
[2018-01-01] MEDS ORDERED: PHARMACY ORDERED LAB ONE (12:45)
--- NOTE | 2018-01-01 13:33 | ECHRPT ---
Indication: SEPSIS ENDOCARDITIS CONCLUSIONS Normal left ventricular size. Wall thickness is normal. The left ventricular systolic function is normal with an estimated ejection fraction in the range of 55-60%. There is trace tricuspid valve regurgitation. BP: / HR: Rhythm: MEASUREMENTS (Male / Female) Normal Values Technical Quality: 2D ECHO LV Diastolic Diameter PLAX 4.2 cm 4.2 - 5.9 / 3.9 - 5.3 cm LV Systolic Diameter PLAX 3.0 cm IVS Diastolic Thickness 0.7 cm 0.6 - 1.0 / 0.6 - 0.9 cm LVPW Diastolic Thickness 0.7 cm 0.6 - 1.0 / 0.6 - 0.9 cm LV Relative Wall Thickness 0.3 LA Systolic Diameter LX 2.7 cm 3.0 - 4.0 / 2.7 - 3.8 cm M-MODE Aortic Root Diameter MM 2.7 cm AV Cusp Separation MM 1.6 cm DOPPLER Mitral E Point Velocity 124.0 cm/s Mitral A Point Velocity 86.4 cm/s Mitral E to A Ratio 1.4 TR Peak Velocity 292.0 cm/s TR Peak Gradient 34.1 mmHg FINDINGS LEFT VENTRICLE Normal left ventricular size. Wall thickness is normal. The left ventricular systolic function is normal with an estimated ejection fraction in the range of 55-60%. RIGHT VENTRICLE Normal right ventricular size and systolic function. LEFT ATRIUM The left atrial size is normal. RIGHT ATRIUM The right atrial size is normal. ATRIAL SEPTUM Normal atrial septal thickness without atrial level shunting by limited color doppler interrogation. AORTA The aortic root and proximal ascending aorta are normal in size on limited imaging. MITRAL VALVE Structurally normal mitral valve. No mitral valve stenosis or regurgitation. AORTIC VALVE Trileaflet aortic valve. No aortic valve stenosis or regurgitation. TRICUSPID VALVE There is trace tricuspid valve regurgitation. PULMONARY VALVE The pulmonary valve is not well visualized. VESSELS The inferior vena cava is normal in size. PERICARDIUM No pericardial effusion. Magen Naidu MD, FACC (Electronically Signed) Final Date:01 January 2018 13:32
[2018-01-01 13:41] VITALS: BP 118/75; PULSE 97; RESP 18; TEMP 98.5; O2SAT 100
--- NOTE | 2018-01-01 17:31 | HHI.PR ---
Subjective Remarks no fevers. Patient says she is feeling all right. Denies any chest pain or shortness breath Objective Vital Signs Date Time Temp Pulse Resp B/P (MAP) Pulse Ox O2 Delivery O2 Flow Rate FiO2 01/01/18 14:32 20 01/01/18 13:41 98.5 97 18 118/75 (89) 100 01/01/18 08:35 98.4 84 16 99/57 (71) 99 01/01/18 04:00 98.4 87 16 90/49 (63) 98 12/31/17 23:57 99.0 93 16 94/53 (67) 99 12/31/17 20:37 98.3 82 16 106/62 (77) 99 12/31/17 17:36 98.6 102 16 112/62 (79) 100 Result Diagram: 12/31/1762412/31/17624 Objective Remarks GENERAL: Patient lying in bed. Appears comfortable. Alert and oriented 3.no change on exam SKIN: Warm and dry. HEAD: Normocephalic. EYES: No scleral icterus. No injection or drainage. NECK: Supple, trachea midline. No JVD . CARDIOVASCULAR: Regular rate and rhythm without murmurs, gallops, or rubs. RESPIRATORY: Breath sounds equal bilaterally. No accessory muscle use. GASTROINTESTINAL: Abdomen soft, non-tender, nondistended. MUSCULOSKELETAL: No cyanosis, or edema. BACK: Nontender without obvious deformity. No CVA tenderness. A/P Assessment and Plan // Endocarditis: +IVDU, recent admit to [facility] for RUE Absces, s/p I&D, Echo 11/26/17 w/ vegetation consistent w/ infective endocarditis , all records from [place] reviewed by me. Pt LEFT AMA at that time, referred to ER by Dr. Mackenzie for admission and treatment. Check Blood Cultures, continue IV Vanc/Cefepime, Consult ID for further evaluation. =01/01. Patient seen and examined. Continue antibiotics as per infectious disease. Appreciate assistance. // IVDU: ongoing, Ativan prn for agitation/withdrawal //Tobacco Abuse: Pt counselled. NicoDerm prn if needed. // DVT Prophylaxis: SCD/Teds. Discharge Planning Continue IV antibiotics treatment for colitis as per infectious disease. Larry Edmonds MD Jan 01, 2018 17:31
[2018-01-01 20:00] VITALS: BP 112/75; PULSE 75; RESP 20; TEMP 97.5; O2SAT 100
[2018-01-01] MEDS: QUEtiapine FUMARATE 200 MG TAB PO SCH (21:40)
[2018-01-01 21:55] VITALS: PULSE 95
[2018-01-02] VITALS: BP 105/67; PULSE 80; PULSE 85; RESP 20; TEMP 97.5; O2SAT 96
[2018-01-02] MEDS: SODIUM CHLOR 0.9% 1000 ML INJ 1,000 ML IV SCH ×2 (02:00→08:24)
[2018-01-02] MEDS: LORazepam 2 MG/ML VIAL IV PUSH PRN (02:01)
[2018-01-02 08:00] VITALS: BP 100/58; PULSE 86; RESP 17; TEMP 97.6; O2SAT 100
[2018-01-02 08:04] LABS: AUTOMATED NEUTROPHIL # 5.8 TH/MM3 (1.8-7.7); BASOPHIL # 0.1 TH/MM3 (0-0.2); BASOPHIL % 0.5 % (0.0-2.0); EOSINOPHIL # 0.3 TH/MM3 (0-0.4); EOSINOPHIL % 3.4 % (0.0-4.0); HEMATOCRIT 28.4 % (35.0-46.0); HEMOGLOBIN 9.8 GM/DL (11.6-15.3); LYMPH % 30.7 % (9.0-44.0); MEAN CELL VOLUME 86.7 FL (80.0-100.0); MEAN CORPUSCULAR HGB CONC 34.6 % (32.0-36.0); MEAN PLATELET VOLUME 7.7 FL (7.0-11.0); MONO % 6.7 % (0.0-8.0); MONOCYTE # 0.7 TH/MM3 (0-0.9); NEUT % 58.7 % (16.0-70.0); PLATELET COUNT 317 TH/MM3 (150-450); RED BLOOD COUNT 3.28 MIL/MM3 (4.00-5.30); RED CELL DISTRIBUTION WIDTH 14.4 % (11.6-17.2); WHITE BLOOD COUNT 9.9 TH/MM3 (4.0-11.0)
[2018-01-02] MEDS: buPROPion HCL 150 MG SUSTAINED RELEASE TAB PO SCH (08:23)
[2018-01-02] MEDS: SODIUM CHLORIDE 0.9% FLUSH 10 ML FLUSH IV FLUSH SCH (08:23)
[2018-01-02] MEDS: DOCUSATE SODIUM 50 MG/SENNA 8.6 MG TAB PO SCH (08:23)
[2018-01-02] MEDS: CEFEPIME INJ 1,000 MG in SODIUM CHLORIDE 0.9% INJ 100 ML IV SCH (08:23)
[2018-01-02 08:27] LABS: ALBUMIN 3.1 GM/DL (3.4-5.0); BICARBONATE 26.3 MEQ/L (21.0-32.0); CALCIUM 8.7 MG/DL (8.5-10.1); CREATININE 0.78 MG/DL (0.50-1.00); MAGNESIUM 2.2 MG/DL (1.5-2.5); PHOSPHORUS 4.2 MG/DL (2.5-4.9)
[2018-01-02 08:29] LABS: RANDOM VANCOMYCIN 3.2 COMMENT
--- NOTE | 2018-01-02 08:31 | HHI.PR ---
Subjective Remarks This is a pleasant 27 y/o Female with Schizophrenia, IVDU, Tobacco dependence, referred to Emergency room by medical administrative specialist Doctor Gurdeep for admission due to Endocarditis, Pt w/ recent admit at [facility] 11/26-11/29/17, for RUE Abscess s/p I&D 11/26/17, cultures +MRSA, Echo 11/29/17 w/ small mobile mass ventral aspect of septal leaflet consistent w/ infective endocarditis, s/p eval by ID, on Vanc/Cefepime w/ recommendation for long-term antibiotics for 6wks, however pt LEFT AMA as she lives here in [facility]. Hypokalemic on admission, received Vancomycin and Zosyn in Emergency room. Infectious Disease specialist recommended to continue present antibiotics, echocardiogram, following blood cultures. 01/02: seen ion her bedroom in the presence of nurse Miss Valenzuela, no nausea, vomit or diarrhea. Objective Vital Signs Date Time Temp Pulse Resp B/P (MAP) Pulse Ox O2 Delivery O2 Flow Rate FiO2 01/02/18 00:00 97.5 85 20 105/67 (80) 96 01/02/18 00:00 80 01/01/18 21:55 95 01/01/18 20:00 97.5 75 20 112/75 (87) 100 01/01/18 14:32 20 01/01/18 13:41 98.5 97 18 118/75 (89) 100 01/01/18 08:35 98.4 84 16 99/57 (71) 99 I/O 01/01/18 01/01/18 01/01/18 01/02/18 01/02/18 01/02/18 07:00 15:00 23:00 07:00 15:00 23:00 Intake Total 240 ml Balance 240 ml Intake Oral 240 ml # Voids 4 Result Diagram: 01/02/18 0720 12/31/17 0625 Imaging Last Impressions Chest X-Ray 12/30/17 0029 Signed Impressions: Service Date/Time: Saturday, December 30, 2017 01:07 - CONCLUSION: No acute abnormality demonstrated. Jhon Ansari MD Procedures None Other Results Laboratory Tests Test 12/30/17 00:43 12/31/17 06:25 01/01/18 13:20 01/02/18 07:20 Total Creatine Kinase 108 U/L Creatine Kinase MB 2.5 NG/ML Troponin I LESS THAN 0.02 NG/ML B-Type Natriuretic Peptide 7 PG/ML Lipase 71 U/L Blood Urea Nitrogen 10 MG/DL 8 MG/DL Creatinine 0.73 MG/DL 0.78 MG/DL Random Glucose 76 MG/DL 80 MG/DL Total Protein 7.1 GM/DL Albumin 2.8 GM/DL 3.1 GM/DL Calcium Level 8.3 MG/DL 8.7 MG/DL Alkaline Phosphatase 223 U/L Aspartate Amino Transf (AST/SGOT) 26 U/L Alanine Aminotransferase (ALT/SGPT) 61 U/L Total Bilirubin 0.3 MG/DL Sodium Level 142 MEQ/L 141 MEQ/L Potassium Level 3.9 MEQ/L 3.4 MEQ/L Chloride Level 111 MEQ/L 107 MEQ/L Carbon Dioxide Level 25.4 MEQ/L 26.3 MEQ/L Vancomycin Level Trough 29.0 MCG/ML White Blood Count 9.9 TH/MM3 Red Blood Count 3.28 MIL/MM3 Hemoglobin 9.8 GM/DL Hematocrit 28.4 % Mean Corpuscular Volume 86.7 FL Mean Corpuscular Hemoglobin 30.0 PG Mean Corpuscular Hemoglobin Concent 34.6 % Red Cell Distribution Width 14.4 % Platelet Count 317 TH/MM3 Mean Platelet Volume 7.7 FL Neutrophils (%) (Auto) 58.7 % Lymphocytes (%) (Auto) 30.7 % Monocytes (%) (Auto) 6.7 % Eosinophils (%) (Auto) 3.4 % Basophils (%) (Auto) 0.5 % Neutrophils # (Auto) 5.8 TH/MM3 Lymphocytes # (Auto) 3.0 TH/MM3 Monocytes # (Auto) 0.7 TH/MM3 Eosinophils # (Auto) 0.3 TH/MM3 Basophils # (Auto) 0.1 TH/MM3 CBC Comment DIFF FINAL Differential Comment Phosphorus Level 4.2 MG/DL Magnesium Level 2.2 MG/DL Anion Gap 8 MEQ/L Estimat Glomerular Filtration Rate 87 ML/MIN Random Vancomycin Level 3.2 COMMENT Objective Remarks GENERAL: No acute distress. HEENT: PERRLA, EOMI. No scleral icterus or conjunctival pallor. No lid lag or facial droop. CARDIOVASCULAR: Regular rate and rhythm. No obvious murmurs to auscultation. No chest tenderness to palpation. RESPIRATORY: No obvious rhonchi or wheezing. Clear to auscultation. Breath sounds equal bilaterally. GASTROINTESTINAL: Abdomen soft, non-tender, nondistended. BS normal. MUSCULOSKELETAL: Extremities without clubbing, cyanosis, or edema. No obvious deformities. RUE with ulcer on anterior arm area one inch diameter. NEUROLOGICAL: Awake, alert and oriented x4. No focal neurologic deficits. Moving both upper and lower extremities spontaneously. Medications and IVs Current Medications Medications (Trade) Dose Ordered Sig/[place] Route Start Time Stop Time Status Last Admin Pharmacy Profile Note 0 ml @ 0 mls/hr UNSCH OTHER 12/30/17 03:15 Cefepime HCl 1000 mg/Sodium Chloride 100 ml @ 200 mls/hr Q12H IV 12/30/17 09:00 01/01/18 21:39 (Ativan Inj) 1 mg Q2H PRN IV PUSH 12/30/17 03:15 01/02/18 02:01 Sodium Chloride 1,000 ml @ 100 mls/hr Q10H IV 12/30/17 03:05 01/02/18 02:00 (NS Flush) 2 ml UNSCH PRN IV FLUSH 12/30/17 03:15 (NS Flush) 2 ml BID IV FLUSH 12/30/17 09:00 01/01/18 10:10 (Zofran Inj) 4 mg Q6H PRN IVP 12/30/17 03:15 (Tylenol) 650 mg Q6H PRN PO 12/30/17 03:15 01/02/18 02:17 (Roxicodone) 10 mg Q4H PRN PO 12/30/17 03:15 01/01/18 18:34 (Roxicodone) 5 mg Q4H PRN PO 12/30/17 03:15 (Hoa-Colace) 1 tab BID PO 12/30/17 09:00 01/01/18 21:39 (Milk Of Magnesia Liq) 30 ml Q12H PRN PO 12/30/17 03:15 (Senokot) 17.2 mg Q12H PRN PO 12/30/17 03:15 (Dulcolax Supp) 10 mg DAILY PRN RECTAL 12/30/17 03:15 (Lactulose Liq) 30 ml DAILY PRN PO 12/30/17 03:15 (Wellbutrin Sr) 150 mg Q12HR PO 12/30/17 09:00 01/01/18 21:40 (SEROquel) 400 mg HS PO 12/30/17 21:00 01/01/18 21:40 Vancomycin HCl 1250 mg/Sodium Chloride 262.5 ml @ 250 mls/hr Q12H IV 12/30/17 13:00 Future Hold 01/01/18 01:27 A/P Assessment and Plan (1) Endocarditis ICD Code: I38 - Endocarditis, valve unspecified Status: Acute (2) IVDU (intravenous drug user) ICD Code: F19.90 - Other psychoactive substance use, unspecified, uncomplicated (3) Tobacco abuse ICD Code: Z72.0 - Tobacco use 1. Endocarditis: +IVDU, recent admit to [facility] for RUE Absces, s/p I&D, Echo 11/26/17 w/ vegetation consistent w/ infective endocarditis, all records from [place] reviewed by me. Pt LEFT AMA at that time, referred to ER by Dr. Mackenzie for admission and treatment. Check Blood Cultures, continue IV Vanc/Cefepime, ID following, 2. IVDU: ongoing, Ativan prn for agitation/withdrawal 3. Tobacco Abuse: Pt counselled. NicoDerm prn if needed. 4. Hypokalemia replaced and will continue 20 meq daily for now. DVT Prophylaxis: SCD/Teds. Discharge Planning Once cleared by specialists. John Mercado MD Jan 02, 2018 08:31
[2018-01-02 12:00] VITALS: BP 98/55; PULSE 90; RESP 18; TEMP 98.1; O2SAT 99
[2018-01-02] MEDS ORDERED: POTASSIUM CHLORIDE 20 MEQ CONTROLLED RELEASE TAB PO ONE ×2 (12:45→16:00)
[2018-01-02] MEDS ORDERED: VANCOMYCIN INJ 1,250 MG in SODIUM CHLOR 0.9% 250 ML INJ 250 ML IV ONE (14:00)
[2018-01-02] MEDS ORDERED: ENOXAPARIN SODIUM 40 MG/0.4 ML SYRINGE SQ SCH (14:00)
--- NOTE | 2018-01-02 15:52 | HHI.DS ---
Discharge Summary Admission Date Dec 30, 2017 at 03:04 Discharge Date: Jan 02, 2018 Admitting Diagnosis endocarditis (1) Endocarditis ICD Code: I38 - Endocarditis, valve unspecified Diagnosis: Principal Status: Acute (2) IVDU (intravenous drug user) ICD Code: F19.90 - Other psychoactive substance use, unspecified, uncomplicated Diagnosis: Principal (3) Tobacco abuse ICD Code: Z72.0 - Tobacco use Diagnosis: Principal Procedures None Brief History - From Admission This is a 27-year-old female with a PMH of Schizophrenia, IVDU and Tobacco Abuse who was referred to the ER by her hole digger operator, Dr. Mackenzie for admission due to Endocarditis. Pt w/ recent admit at [facility] 11/26-11/29/17, for RUE Abscess s/p I&D 11/26/17, cultures +MRSA, Echo w/ small mobile mass ventral aspect of septal leaflet consistent w/ infective endocarditis, s/p eval by ID, on Vanc/Cefepime w/ recommendation for long-term antibiotics for 6wks, however pt LEFT AMA as she lives here in [facility]. Seen by Dr. Mackenzie today and referred to the ER for admission. Pt denies complaints at this time. On arrival, BP 124/59, HR 85, O2 sat 99% on RA, Afebrile. CBC unremarkable. Chemistry unremarkable except for K+ 2.9. Troponin negative. CPK 299. Creatinine 1.07. CXR with no acute findings. S/ p Vanc/Zosyn in ER CBC/BMP: 01/02/18 0720 01/02/18 0720 Significant Findings Laboratory Tests Test 12/31/17 01:01 12/31/17 06:25 01/01/18 13:20 01/02/18 07:20 Vancomycin Level Trough 11.6 MCG/ML (5.0-10.0) 29.0 MCG/ML (5.0-10.0) Red Blood Count 3.15 MIL/MM3 (4.00-5.30) 3.28 MIL/MM3 (4.00-5.30) Hemoglobin 9.5 GM/DL (11.6-15.3) 9.8 GM/DL (11.6-15.3) Hematocrit 27.5 % (35.0-46.0) 28.4 % (35.0-46.0) Lymphocytes (%) (Auto) 46.0 % (9.0-44.0) Monocytes (%) (Auto) 10.6 % (0.0-8.0) Eosinophils (%) (Auto) 4.8 % (0.0-4.0) Albumin 2.8 GM/DL (3.4-5.0) 3.1 GM/DL (3.4-5.0) Calcium Level 8.3 MG/DL (8.5-10.1) Alkaline Phosphatase 223 U/L (45-117) Alanine Aminotransferase (ALT/SGPT) 61 U/L (10-53) Chloride Level 111 MEQ/L (98-107) Potassium Level 3.4 MEQ/L (3.5-5.1) Estimat Glomerular Filtration Rate 87 ML/MIN (>89) Imaging Last Impressions Chest X-Ray 12/30/17 0029 Signed Impressions: Service Date/Time: Saturday, December 30, 2017 01:07 - CONCLUSION: No acute abnormality demonstrated. Jhon Ansari MD PE at Discharge GENERAL: No acute distress. HEENT: PERRLA, EOMI. No scleral icterus or conjunctival pallor. No lid lag or facial droop. CARDIOVASCULAR: Regular rate and rhythm. No obvious murmurs to auscultation. No chest tenderness to palpation. RESPIRATORY: No obvious rhonchi or wheezing. Clear to auscultation. Breath sounds equal bilaterally. GASTROINTESTINAL: Abdomen soft, non-tender, nondistended. BS normal. MUSCULOSKELETAL: Extremities without clubbing, cyanosis, or edema. No obvious deformities. RUE with ulcer on anterior arm area one inch diameter. NEUROLOGICAL: Awake, alert and oriented x4. No focal neurologic deficits. Moving both upper and lower extremities spontaneously. Pt update on day of discharge THE PATIENT DECIDED TO SIGN AGAINST MEDICAL ADVISE. Hospital Course This is a pleasant 27 y/o Female with Schizophrenia, IVDU, Tobacco dependence, referred to Emergency room by investigation specialist Doctor Gurdeep for admission due to Endocarditis, Pt w/ recent admit at [facility] 11/26-11/29/17, for RUE Abscess s/p I&D 11/26/17, cultures +MRSA, Echo 11/29/17 w/ small mobile mass ventral aspect of septal leaflet consistent w/ infective endocarditis, s/p eval by ID, on Vanc/Cefepime w/ recommendation for long-term antibiotics for 6wks, however pt LEFT AMA as she lives here in [facility]. Hypokalemic on admission, received Vancomycin and Zosyn in Emergency room. Infectious Disease specialist recommended to continue present antibiotics, echocardiogram, following blood cultures. 01/02: seen ion her bedroom in the presence of nurse Miss Valenzuela, no nausea, vomit or diarrhea. Assessment and Plan (1) Endocarditis ICD Code: I38 - Endocarditis, valve unspecified Status: Acute (2) IVDU (intravenous drug user) ICD Code: F19.90 - Other psychoactive substance use, unspecified, uncomplicated (3) Tobacco abuse ICD Code: Z72.0 - Tobacco use 1. Endocarditis: +IVDU, recent admit to [facility] for RUE Absces, s/p I&D, Echo 11/26/17 w/ vegetation consistent w/ infective endocarditis, all records from [place] reviewed by me. Pt LEFT AMA at that time, referred to ER by Dr. Mackenzie for admission and treatment. Check Blood Cultures, continue IV Vanc/Cefepime, ID following, 2. IVDU: ongoing, Ativan prn for agitation/withdrawal 3. Tobacco Abuse: Pt counselled. NicoDerm prn if needed. 4. Hypokalemia replaced and will continue 20 meq daily for now. DVT Prophylaxis: SCD/Teds. Discharge Planning the patient decided to sign Against Medical Advise Pt Condition on Discharge: Stable Discharge Disposition: Discharge Home Discharge Time: <= 30 minutes John Mercado MD Jan 02, 2018 15:52
[2018-01-03] MEDS ORDERED: POTASSIUM CHLORIDE 20 MEQ CONTROLLED RELEASE TAB PO SCH (09:00)
== END 2018-01-02 15:49 | disposition left against medical advice (07) | DRG 289 ==
LOC: NEPC 22:47 → NEDA 12-30 03:04 → NEPGCP 12-30 04:11 → N07B 01-01 16:52
PROVIDERS: ADMIT Internal Medicine; ATTEND Internal Medicine
DX: I33.0 Acute and subacute infective endocarditis (principal); L02.413 Cutaneous abscess of right upper limb; I95.9 Hypotension, unspecified; E87.6 Hypokalemia; B95.62 Methicillin resistant Staphylococcus aureus infection as the cause of diseases classified elsewhere; F20.9 Schizophrenia, unspecified; F11.10 Opioid abuse, uncomplicated; F12.10 Cannabis abuse, uncomplicated; F14.10 Cocaine abuse, uncomplicated; F17.210 Nicotine dependence, cigarettes, uncomplicated
CPT/HCPCS: 71046; 76937; 80053; 80069; 80202; 82550; 82552; 83690; 83735; 83880; 84484; 85025; 87040; 93005; 93306; 96361; 96374; 99285; J0692; J2060; J2543; J3370; J3480; J7030; J7050